=== PATIENT | female | born 1940 | race Caucasian/White ===

== ENCOUNTER 2023-11-03 12:08 | Outpatient (OUT) | payer MEDICARE, SELFPAY ==
[2023-11-03 12:24] LABS: Basophils Absolute Auto 0.1 10^3/uL (0.0-0.1); Basophils Percent Auto 1.1 % (0.2-2.0); Eosinophils Absolute Auto 0.3 10^3/uL (0.0-0.7); Eosinophils Percent Auto 3.9 % (0.9-7.0); Hematocrit 39.2 % (36.0-48.0); Hemoglobin 12.4 g/dL (12.0-16.0); Immature Granulocytes Abs Auto 0.02 10^3/uL (0.00-0.03); Immature Granulocytes Pct Auto 0.3 % (0.0-0.5); Lymphocytes Absolute Auto 2.1 10^3/uL (1.2-3.8); Lymphocytes Percent Auto 27.9 % (20.5-60.0); Mean Corpuscular HGB Conc 31.6 g/dL (29.9-35.2); Mean Corpuscular Hemoglobin 28.1 pg (26.7-34.0); Mean Corpuscular Volume 88.7 fL (81.0-99.0); Mean Platelet Volume 9.6 fL (9.5-13.5); Monocytes Absolute Auto 0.6 10^3/uL (0.3-0.8); Monocytes Percent Auto 7.3 % (1.7-12.0); Neutrophils Absolute Auto 4.5 10^3/uL (1.4-6.5); Neutrophils Percent Auto 59.5 % (43.0-75.0); Platelet Count 255 10^3/uL (150-450); Red Blood Count 4.42 10^6/uL (4.20-5.40); Red Cell Distribution Width 12.5 % (11.0-15.0); White Blood Count 7.5 10^3/uL (4.0-11.0)
[2023-11-03 12:56] LABS: Estimated Average Glucose 123 mg/dL; Glycohemoglobin A1C 5.9 % (4.5-6.2)
[2023-11-03 13:07] LABS: Alanine Aminotransferase 24 U/L (14-59); Albumin Globulin Ratio 0.9; Albumin Level 3.6 g/dL (3.4-5.0); Alkaline Phosphatase 83 U/L (46-116); Aspartate Amino Transferase 24 U/L (15-37); BUN Creatinine Ratio 10.3; Bilirubin Total 0.5 mg/dL (0.2-1.0); Calcium 8.8 mg/dL (8.5-10.1); Carbon Dioxide 27.7 mmol/L (21.0-32.0); Chloride 101 mmol/L (98-107); Chol HDL Ratio 2.8; Cholesterol 193 mg/dL (<=200); Estimated GFR (African America 54 (>=60); Estimated GFR (Non-African Ame 44 (>=60); Free T3 1.73 pg/mL (2.18-3.98); Globulin 4.1 g/dL; Glucose 118 mg/dL (74-106); HDL Cholesterol 69 mg/dL (40-60); Potassium 3.7 mmol/L (3.5-5.1); Sodium 138 mmol/L (136-145); Thyroid Stimulating Hormone 3.545 uIU/mL (0.358-3.740); Total Protein 7.7 g/dL (6.4-8.2); Triglycerides 138 mg/dL (<=150); VLDL CHOLESTEROL 27.6 mg/dL
[2023-11-05 12:07] LABS: Insulin 38.2 uIU/mL (2.6-24.9)
== END 2023-11-03 12:09 | disposition home or self-care (01) ==
LOC: LAB 12:08
PROVIDERS: PCP Nurse Practitioner Family; Visit Provider Nurse Practitioner Family
DX: I10 Essential (primary) hypertension (principal); E78.5 Hyperlipidemia, unspecified; R73.09 Other abnormal glucose; D64.9 Anemia, unspecified; R53.83 Other fatigue; E55.9 Vitamin D deficiency, unspecified
CPT/HCPCS: 36415; 80053; 80061; 82306; 83036; 83525; 83540; 84436; 84443; 84481; 85025

== ENCOUNTER 2024-11-21 14:09 | Outpatient (OUT) | payer MEDICARE, SELFPAY ==
--- OUTSIDE RECORDS SUMMARY | 2024-11-21 14:18 | XMS_ITS | CCD ---
Author Organization [facility] Care Team Providers Care Soap Drier Operator Name Role Phone TAL ., DR BRAD Mancia Admitting Unavaila ble GRPERRI ., DR BRAD Mancia Attending Unavaila jonas [facility] Unavailable GRILLIS ., DR BRAD Mancia Attending Unavaila ble GRILLIS ., DR BRAD Mancia Consulting Unavaila ble GRILLIVu ., DR BRAD Mancia Admitting Unavaila ble ROSS, [facility] Primary Care Unavailable KENNEDY, DR JENNIE Aguila Consulting Unavailable MUNIRA ., FERNANDO DUDLEY Consulting Indira KRUGER ., DR BURKS Consulting Unavailable KATHERINE NORIEGA Consulting Unavaila ble GRILLIS ., DR BRAD Mancia Admitting Unavaila ble GRPERRI ., DR BRAD Mancia Attending Unavaila ble TAL ., DR BRAD Mancia Consulting Unavaila jonas [facility] Primary Care Unavailable ASTRIDJEAN-CLAUDE Consulting Unavailable GOLDIE KHAN Consulting Unavailable GRILLIS ., DR BRAD Mancia Attending Unavaila ble GRILLIS ., DR BRAD Mancia Admitting Unavaila ble ROSS, [facility] BRIDGETT MICHELLE Admitting Unavailable BRIDGETT MICHELLE Attending Unavailable PARDEEPS ., DR BRAD Mancia Attending Unavaila ble GRILLIS ., DR BRAD Mancia Consulting Unavaila ble GRILLIS ., DR BRAD Mancia Admitting Unavaila ble ROSS, [facility] Unavailable BANTAM, DR ZI Nixon Consulting Unavailable BRIDGETT MICHELLE Consulting Unavailable MIGUEL ANGEL [facility] Primary Care Unavailable BRIDGETT MICHELLE Admitting Unavailable BRIDGETT MICHELLE Attending Unavailable Miguel Angel OLMSTEAD-SUPERVISOR SHOP, Bridgett Womack Primary Care Provider Norman OLMSTEAD-María RITCHIE Unavailable Gene Michelle MD Primary Care Provider MARÍA SALMON Attending Unavailab MARÍA Tay Attending Unavailab MARÍA Tay Attending Unavailab MARÍA Tay Attending Unavailab MARÍA Tay Attending Unavailab le Allergies Allergy Classification Reported Allergen(s) Allergy Type Date of Onset Reaction(s) Facility (2 sources) Etodolac Drug Allergy [facility] (1 source) Budesonide Drug Allergy 2 Vomiting [facility] (1 source) Etodolac Drug Allergy 2 [facility] (4 sources) Etodolac Propensity to adverse reactions 3 [facility] (4 sources) Lactobacillus acidophilus Drug Allergy 3 [facility] Healthcare Medications Current Medications Medication Drug Class(es) Dates Sig (Normalized) Sig (Original) ALPRAZolam 0.25 mg oral tablet (7 sources) Benzodiazepine Start: 10-14-2024 take 1 tablet by mouth once daily as needed for anxiety ALPRAZolam (Xanax) 0.25 MG tablet Indications: Anxiety TAKE 1 TABLET BY MOUTH ONCE DAILY NEEDED FOR ANXIETY 30 tablet 10/14/2024 Active Start: 05-02-2024 End: 09-19-2024 take 1 tablet by mouth every twenty-four hours as needed for anxiety and anxiety and anxiety ALPRAZolam (Xanax) 0.25 MG tablet Indications: Anxiety Take 1 tablet (0.25 mg) by mouth Daily as needed for anxiety (1 tablet daily as needed) 30 tablet 08/20/2024 09/19/2024 Active Start: 12-14-2021 ALPRAZolam (XA NAX) 0.25 mg tablet TAKE 1 TABLET ORALLY 6-8 HRS NEEDED 30 DAYS 0 12/14/2021 Active amitriptyline hydrochloride 50 mg oral tablet (7 sources) Tricyclic Antidepressant Start: 08-20-2024 take 1 tablet by mouth at bedtime amitriptyline (Elavil) 50 MG tablet Indications: Bipolar 2 disorder (CMS/HCC) Take 1 tablet (50 mg) by mouth at bedtime 90 tablet 08/20/2024 Active Start: 08-20-2024 take 1 tablet by william th at bedtime amitriptyline (Elavil) 50 MG tablet Indications: Bipolar 2 disorder (CMS/HCC) Take 1 tablet (50 mg) by mouth at bedtime 90 tablet 08/20/2024 Active Start: 07-19-2024 End: 08-20-2024 take 1 tablet by mouth at bedtime amitriptyline (Elavil) 50 MG tablet Indications: Bipolar 2 disorder (CMS/HCC) TAKE 1 TABLET BY MOUTH AT BEDTIME 90 tablet 07/19/2024 08/20/2024 Discontinued (Reorder) Start: 12-24-2021 take 1 tablet by william th once daily amitriptyline (ELAVIL) 50 mg tablet TAKE 1 TABLET BY MOUTH EVERY DAY FOR 90 DAYS 0 12/24/2021 Active lamoTRIgine 150 mg oral tablet (7 sources) Mood Stabilizer, Anti-epileptic Agent Start: 05-02-2024 End: 11-18-2024 take 1 tablet by mouth once daily lamoTRIgine (LaMICtal) 150 MG tablet Indications: Bipolar 2 disorder (CMS/HCC) Take 1 tablet (150 mg) by mouth Daily 90 tablet 08/20/2024 11/18/2024 Active Start: 12-24-2021 take 1 tablet by william th once daily lamoTRIgine (LaMICtal) 200 mg tablet TAKE 1 TABLET BY MOUTH EVERY DAY FOR 90 DAYS 0 12/24/2021 Active latanoprost 0.05 mg/ml ophthalmic solution (5 sources) Prostaglandin Analog Start: 06-19-2022 take 1 drop(s) into the eye(s) at bedtime latanoprost (Xalatan) 0.005 % ophthalmic solution Administer 1 drop into both eyes at bedtime. 06/19/2022 Active Start: 12-02-2021 take 1 drop(s) into the eye(s) once daily at bedtime latanoprost (XALATAN) 0.005 % ophthalmic solution PLACE 1 DROP INTO AFFECTED EYE ONCE A DAY AT BEDTIME 0 12/02/2021 Active levothyroxine sodium 0.05 mg oral tablet (5 sources) l-Thyroxine Start: 12-24-2021 take 1 tablet by mouth before mealtime levothyroxine (Synthroid, Levoxyl) 50 MCG tablet Take 50 mcg by mouth in the morning. Take before meals. 03/14/2023 Active metoprolol tartrate 25 mg oral tablet (5 sources) beta-Adrenergic Hu Start: 12-14-2021 take 1 tablet by mouth in the morning metoprolol tartrate (Lopressor) 25 MG tablet Take 25 mg by mouth in the morning and 25 mg before bedtime. 02/10/2023 Active naproxen 500 mg oral tablet (4 sources) Nonsteroidal Anti-inflammatory Drug Start: 03-15-2023 take 1 tablet by mouth in the morning naproxen (Naprosyn) 500 MG tablet Take 500 mg by mouth in the morning. 03/15/2023 Active omeprazole 40 mg delayed release oral capsule (6 sources) Proton Pump Inhibitor Start: 12-18-2023 take 1 capsule by mouth before mealtime, then take 1 capsule by mouth before mealtime omeprazole (PriLOSEC) 40 mg capsule Indications: Acquired diverticulum of esophagus , Esophageal stricture TAKE 1 CAPSULE BY MOUTH IN THE MORNING BEFORE MEAL(S) AND 1 IN THE EVENING BEFORE MEAL(S) 180 capsule 3 12/18/2023 Active Start: 08-23-2023 End: 12-18-2023 take 1 capsule by mouth in the morning, then take 1 capsule by mouth before mealtime omeprazole (PriLOSEC) 40 mg capsule Indications: Acquired diverticulum of esophagus , Esophageal stricture TAKE 1 CAPSULE BY MOUTH IN THE MORNING AND 1 IN THE EVENING BEFORE MEAL(S) 180 capsule 0 08/23/2023 12/18/2023 Discontinued simvastatin 20 mg oral tablet (5 sources) HMG-CoA Reductase Inhibitor Start: 12-24-2021 take 1 tablet by mouth at bedtime simvastatin (Zocor) 20 MG tablet Take 20 mg by mouth at bedtime. 03/14/2023 Active Problems Active Problems Problem Classification Problem Date Documented Date Episodic/Chronic Anxiety disorders (8 sources) Anxiety disorder, unspecified; Translations: [Anxiety] Onset: 02-17-2022 03-04-2023 Chronic Chronic kidney disease (2 sources) Chronic kidney disease, unspecified; Translations: [Chronic kidney disease] Onset: 02-21-2022 02-21-2022 Chronic Digestive congenital anomalies (1 source) Congenital diverticulum of esophagus; Translations: [CONGENITAL DIVERTICULUM ESOPHAGUS] Onset: 03-11-2022 Chronic Disorders of lipid metabolism (3 sources) Hyperlipidemia, unspecified; Translations: [Pure hypercholesterolemia, unspecified] Onset: 02-21-2022 02-21-2022 Chronic Esophageal disorders (7 sources) Gastro-esophageal reflux disease without esophagitis; Translations: [Esophageal obstruction] Onset: 03-09-2022 Chronic Esophageal disorders (5 sources) Diverticulum of esophagus, acquired; Translations: [Acquired diverticulum of esophagus] Onset: 02-25-2022 Episodic Essential hypertension (6 sources) Essential (primary) hypertension; Translations: [Hypertensive disorder] Onset: 02-17-2022 Chronic Hypertension with complications and secondary hypertension (1 source) Hypertensive chronic kidney disease with stage 1 through stage 4 chronic kidney disease, or unspecified chronic kidney disease; Translations: [HTN CKD W/STAGE 1-4 CKD/UNS CKD] Onset: 03-11-2022 Chronic Mood disorders (10 sources) Bipolar II disorder; Translations: [Bipolar II disorder] Onset: 03-04-2023 03-04-2023 Chronic Osteoarthritis (1 source) Unspecified osteoarthritis, unspecified site; Translations: [UNSPECIFIED OSTEOARTHRITIS UNS SITE] Onset: 02-17-2022 Chronic Unclassified (1 source) GASTR-ESOPH RFLX DS ESPHGTS W/O BLD; Translations: [GASTR-ESOPH RFLX DS ESPHGTS W/O BLD] Onset: 03-11-2022 Unclassified (1 source) ESOPHAGITIS UNSPEC WITHOUT BLEEDING; Translations: [ESOPHAGITIS UNSPEC WITHOUT BLEEDING] Onset: 02-17-2022 Unclassified (1 source) CONTACT W/AND (SUSP) EXPOS COVID-19; Translations: [CONTACT W/AND (SUSP) EXPOS COVID-19] Onset: 02-17-2022 Past or Other Problems Problem Classification Problem Date Documented Da te Episodic/Chronic Deficiency and other anemia (1 source) Anemia, unspecified; Translations: [ANEMIA UNSPECIFIED] Onset: 09-08-2022 Episodic Diabetes mellitus without complication (1 source) Other abnormal glucose; Translations: [OTHER ABNORMAL GLUCOSE] Onset: 09-08-2022 Episodic Intestinal obstruction without hernia (1 source) Other intestinal obstruction unspecified as to partial versus complete obstruction; Translations: [OTH INTEST OBS UNS PART VS CMPL OBS] Onset: 03-02-2022 Episodic Other aftercare (1 source) Other senior living (current) drug therapy; Translations: [OTH GROUP HOME CURRENT DRUG THERAPY] Onset: 02-17-2022 Episodic Other and unspecified benign neoplasm (1 source) Personal history of colonic polyps; Translations: [PERSONAL HISTORY OF COLONIC POLYPS] Onset: 02-17-2022 Episodic Other disorders of stomach and duodenum (1 source) Adult hypertrophic pyloric stenosis; Translations: [ADULT HYPERTROPHIC PYLORIC STENOSIS] Onset: 03-02-2022 Episodic Other gastrointestinal disorders (1 source) Other dysphagia; Translations: [OTHER DYSPHAGIA] Onset: 03-11-2022 Episodic Other gastrointestinal disorders (3 sources) Dysphagia, unspecified; Translations: [DYSPHAGIA UNSPECIFIED] Onset: 02-09-2022 Episodic Other injuries and conditions due to external causes (1 source) Food in esophagus causing other injury, initial encounter; Translations: [FOOD ESOPH CAUS OTH INJURY INIT ENC] Onset: 02-17-2022 Episodic Other screening for suspected conditions (not mental disorders or infectious disease) (1 source) Abnormal findings on diagnostic imaging of other parts of digestive tract; Translations: [ABN FND DX IMAG OTH PRT DGSTV TRACT] Onset: 03-11-2022 Episodic Residual codes; unclassified (4 sources) Insomnia; Translations: [Insomnia, unspecified] Onset: 03-13-2024 03-13-2024 Episodic Screening and history of mental health and substance abuse codes (1 source) Personal history of nicotine dependence; Translations: [PERSONAL HISTORY OF NICOTINE DEPEND] Onset: 02-17-2022 Episodic Results Test Name Value Interpretation Reference Range Facil ity INSULINon 07-28-2022 Insulin 9.9 uIU/mL Normal 2.6-24.9 [facility] Comment on above: Performed By: #### C BC #### [facility] [address] [address] [address] Deandre Ren CBC AUTO DIFFon 07-27-2022 BASO # 0.1 103/ul Normal 0.0-0.1 [facility] Comment on above: Performed By: #### C BC #### [facility] [address] [address] [address] Deandre Ren Basophils/100 WBC (Bld) 1.0 % Normal 0.2-2.0 [facility] Comment on above: Performed By: #### C BC #### [facility] [address] [place] [address] Dr. Deandre Ren EO # 0.2 103/ul Normal 0.0-0.7 [facility] Comment on above: Performed By: #### C BC #### [facility] [address] [place] [address] Dr. Deandre Ren Eosinophils/100 WBC (Bld) 3.2 % Normal 0.9-7.0 [facility] Comment on above: Performed By: #### C BC #### [facility] [address] [place] [address] Dr. Deandre Ren Erythrocyte distribution width (RBC) [Ratio] 13.0 % Normal 11.0-15.0 [facility] Comment on above: Performed By: #### C BC #### [facility] [address] [place] [address] Dr. Deandre Ren Hematocrit (Bld) [Volume fraction] 40.4 % Normal 36.0-48.0 [facility] Comment on above: Performed By: #### C BC #### [facility] [address] [place] [address] Dr. Deandre Ren Hemoglobin (Bld) [Mass/Vol] 13.0 g/dL Normal 12.0-16.0 [facility] Comment on above: Performed By: #### C BC #### [facility] [address] [place] [address] Dr. Deandre Ren IG # 0.03 10e3/ul Normal 0.00-0.03 [facility] Comment on above: Performed By: #### C BC #### [facility] [address] [place] [address] Dr. Denadre Ren IG % 0.4 % Normal 0.0-0.5 [facility] Comment on above: Performed By: #### C BC #### [facility] [address] [place] [address] Dr. Deandre Ren LYMPH # 1.9 103/ul Normal 1.2-3.8 [facility] Comment on above: Performed By: #### C BC #### [facility] [address] [place] [address] Dr. Deandre Ren Lymphocytes/100 WBC (Bld) 27.1 % Normal 20.5-60.0 [facility] Comment on above: Performed By: #### C BC #### [facility] [address] [place] [address] Dr. Deandre Ren MANUAL DIFF REQ NO Normal [facility] Comment on above: Performed By: #### C BC #### [facility] [address] [place] [address] Dr. Deandre Ren MCH (RBC) [Entitic mass] 28.5 pg Normal 26.7-34.0 [facility] Comment on above: Performed By: #### C BC #### [facility] [address] [place] [address] Dr. Deandre Ren MCHC (RBC) [Mass/Vol] 32.2 g/dL Normal 29.9-35.2 [facility] Comment on above: Performed By: #### C BC #### [facility] [address] [place] [address] Dr. Deandre Ren MCV (RBC) [Entitic vol] 88.6 fL Normal 81.0-99.0 [facility] Comment on above: Performed By: #### C BC #### [facility] [address] [place] [address] Dr. Deandre Ren MONO # 0.6 103/ul Normal 0.3-0.8 [facility] Comment on above: Performed By: #### C BC #### [facility] [address] [place] [address] Dr. Deandre Ren Monocytes/100 WBC (Bld) 9.1 % Normal 1.7-12.0 [facility] Comment on above: Performed By: #### C BC #### [facility] [address] [place] [address] Dr. Deandre Ren NEUT # 4.1 103/ul Normal 1.4-6.5 [facility] Comment on above: Performed By: #### C BC #### [facility] [address] [place] [address] Dr. Deandre Ren Neutrophils/100 WBC (Bld) 59.2 % Normal 43.0-75.0 [facility] Comment on above: Performed By: #### C BC #### [facility] [address] [place] [address] Dr. Deandre Ren Platelet mean volume (Bld) [Entitic vol] 9.8 fL Normal 9.5-13.5 [facility] Comment on above: Performed By: #### C BC #### [facility] [address] [place] [address] Dr. Deandre Ren PLT 237 103/ul Normal 150-450 [facility] Comment on above: Performed By: #### C BC #### [facility] [address] [place] [address] Dr. Deandre Ren RBC 4.56 106/ul Normal 4.20-5.40 [facility] Comment on above: Performed By: #### C BC #### [facility] [address] [place] [address] Dr. Deandre Ren WBC 6.9 103/ul Normal 4.0-11.0 [facility] Comment on above: Performed By: #### C BC #### [facility] [address] [place] [address] Dr. Deandre Ren FREE THYROXINE INDEX T7on FTI 3.43 Normal 1.30-4.50 [facility] Comment on above: Performed By: #### C BC #### [facility] [address] [place] [address] Dr. Deandre Ren T3U 34.0 % Normal 30.0-39.0 [facility] Comment on above: Performed By: #### C BC #### [facility] [address] [place] [address] Dr. Deandre Ren T4 [Mass/Vol] 10.10 ug/dL Normal 4.80-13.90 [facility] Comment on above: Performed By: #### C BC #### [facility] [address] [place] [address] Dr. Deandre Ren GLYCOHEMOGLOBIN A1Con 2021 ADA RECOMMENDATION SEE BELOW Normal [facility] Comment on above: Result Comment: ADA RECOMMENDED LIMIT 4.0 - 6.0 ADA THERAPEUTIC TARGET < 7.0 ACTION SUGGESTED > 7.0 Performed By: #### A 1C #### [facility] [address] [place] [address] Dr. Deandre Ren Glucose [Mass/Vol] 114 mg/dL Normal [facility] Comment on above: Performed By: #### A 1C #### [facility] [address] [address] [address] Deandre Ren HbA1c (Bld) [Mass fraction] 5.6 % Normal 4.5-6.2 [facility] Comment on above: Performed By: #### A 1C #### [facility] [address] [place] [address] Dr. Deandre Ren IRONon 07-27-2022 Iron [Mass/Vol] 106.0 ug/dL Normal 50.0-170.0 [facility] Comment on above: Performed By: #### I BELKIS #### [facility] [address] [place] [address] Dr. Deandre Ren LIPID PROFILEon 07-27-2022 CHOL-HDL RATIO NORM SEE BELOW Normal [facility] Comment on above: Result Comment: 3.3 - 4.4 LOW RISK 4.4 - 7.1 AVERAGE RISK 7.1 - 11.0 MODERATE RISK >11.0 HIGH RISK Performed By: #### C BC #### [facility] [address] [place] [address] Dr. Deandre Ren Cholesterol [Mass/Vol] 218 mg/dL Critically high <=200 [facility] Comment on above: Performed By: #### C BC #### [facility] [address] [address] [address] Daendre Ren Cholesterol in HDL [Mass/Vol] 74 mg/dL Critically high 40-60 [facility] Comment on above: Performed By: #### C BC #### [facility] [address] [address] [address] Deandre Ren Cholesterol in LDL [Mass/Vol] 98.0 mg/dL Normal [facility] Comment on above: Performed By: #### C BC #### [facility] [address] [address] [address] Deandre Ren Cholesterol.total/Cho lesterol in HDL [Mass ratio] 2.9 {ratio} Normal [facility] Comment on above: Performed By: #### C BC #### [facility] [address] [address] [address] Deandre Ren HDL NORMAL > or = 60 mg/dl - LOW CARDIOVASCULAR RISK <40 mg/dl - HIGH CARDIOVASCULAR RISK Normal [facility] Comment on above: Performed By: #### C BC #### [facility] [address] [address] [address] Deandre Ren LDL CALC NORMAL SEE BELOW Normal [facility] Comment on above: Result Comment: <100 mg/dl OPTIMAL 100 - 129 mg/dl NEAR OR ABOVE OPTIMAL 130 - 159 mg/dl BORDERLINE HIGH 160 - 189 mg/dl HIGH >190 mg/dl VERY HIGH Performed By: #### C BC #### [facility] [address] [place] [address] Dr. Deandre Ren Triglyceride [Mass/Vol] 230 mg/dL Critically high <=150 [facility] Comment on above: Performed By: #### C BC #### [facility] [address] [place] [address] Dr. Deandre Ren VLDL CALC 46.0 mg/dL Normal [facility] Comment on above: Performed By: #### C BC #### [facility] [address] [address] [address] Deandre Ren PROF 14(COMP METB)on 022 Albumin [Mass/Vol] 3.6 g/dL Normal 3.4-5.0 [facility] Comment on above: Performed By: #### C BC #### [facility] [address] [place] [address] Dr. Deandre Ren Albumin/Globulin [Mass ratio] 0.8 {ratio} Normal [facility] Comment on above: Performed By: #### C BC #### [facility] [address] [place] [address] Dr. Deandre Ren ALP [Catalytic activity/Vol] 116 U/L Normal 46-116 [facility] Comment on above: Performed By: #### C BC #### [facility] [address] [place] [address] Dr. Deandre Ren ALT [Catalytic activity/Vol] 30 U/L Normal 14-59 [facility] Comment on above: Performed By: #### C BC #### [facility] [address] [place] [address] Dr. Deandre Ren Anion gap [Moles/Vol] 9.6 mmol/L Normal [facility] Comment on above: Performed By: #### C BC #### [facility] [address] [place] [address] Dr. Deandre Ren AST [Catalytic activity/Vol] 30 U/L Normal 15-37 [facility] Comment on above: Performed By: #### C BC #### [facility] [address] [place] [address] Dr. Deandre Ren Bilirubin [Mass/Vol] 0.4 mg/dL Normal 0.2-1.0 [facility] Comment on above: Performed By: #### C BC #### [facility] [address] [place] [address] Dr. Deandre Ren Calcium [Mass/Vol] 9.3 mg/dL Normal 8.5-10.1 [facility] Comment on above: Performed By: #### C BC #### [facility] [address] [place] [address] Dr. Deandre Ren Chloride [Moles/Vol] 102 mmol/L Normal 98-107 [facility] Comment on above: Performed By: #### C BC #### [facility] [address] [address] [address] Deandre Ren CO2 [Moles/Vol] 31.0 mmol/L Normal 21.0-32.0 [facility] Comment on above: Performed By: #### C BC #### [facility] [address] [place] [address] Dr. Deandre Ren Creatinine [Mass/Vol] 1.09 mg/dL Critically high 0.55-1.02 [facility] Comment on above: Performed By: #### C BC #### [facility] [address] [address] [address] Deandre Ren EGFR-AF BENINESE 58 mL/min/1.73m2 Critically low >=60 [facility] Comment on above: Performed By: #### C BC #### [facility] [address] [address] [address] Deandre Ren EGFR-NON AF BENINESE 48 mL/min/1.73m2 Critically low >=60 [facility] Comment on above: Performed By: #### C BC #### [facility] [address] [address] [address] Deandre Ren Globulin (S) [Mass/Vol] 4.3 g/dL Normal [facility] Comment on above: Performed By: #### C BC #### [facility] [address] [address] [address] Deandre Ren Glucose [Mass/Vol] 95 mg/dL Normal 74-106 [facility] Comment on above: Performed By: #### C BC #### [facility] [address] [address] [address] Deandre Ren Potassium [Moles/Vol] 3.6 mmol/L Normal 3.5-5.1 [facility] Comment on above: Performed By: #### C BC #### [facility] [address] [address] [address] Deandre Ren Protein [Mass/Vol] 7.9 g/dL Normal 6.4-8.2 [facility] Comment on above: Performed By: #### C BC #### [facility] [address] [address] [address] Deandre Rne Sodium [Moles/Vol] 139 mmol/L Normal 136-145 [facility] Comment on above: Performed By: #### C BC #### [facility] [address] [address] [address] Deandre Ren Urea nitrogen [Mass/Vol] 12.0 mg/dL Normal 7.0-18.0 [facility] Comment on above: Performed By: #### C BC #### [facility] [address] [place] [address] Dr. Deandre Ren Urea nitrogen/Creatinine [Mass ratio] 11.0 mg/mg Normal [facility] Comment on above: Performed By: #### C BC #### [facility] [address] [place] [address] Dr. Deandre Ren TSHon 07-27-2022 TSH 2.450 uIU/mL Normal 0.358-3.740 [facility] Comment on above: Performed By: #### C BC #### [facility] [address] [place] [address] Dr. Deandre Rne CBC AUTO DIFFon 02-09-2022 BASO # 0.1 103/ul Normal 0.0-0.1 [facility] Comment on above: Performed By: #### C BC #### [facility] [address] [place] [address] Dr. Deandre Ren Basophils/100 WBC (Bld) 0.8 % Normal 0.2-2.0 [facility] Comment on above: Performed By: #### C BC #### [facility] [address] [place] [address] Dr. Deandre Ren EO # 0.2 103/ul Normal 0.0-0.7 [facility] Comment on above: Performed By: #### C BC #### [facility] [address] [place] [address] Dr. Deandre Ren Eosinophils/100 WBC (Bld) 2.1 % Normal 0.9-7.0 [facility] Comment on above: Performed By: #### C BC #### [facility] [address] [place] [address] Dr. Deandre Ren Erythrocyte distribution width (RBC) [Ratio] 12.8 % Normal 11.0-15.0 [facility] Comment on above: Performed By: #### C BC #### [facility] [address] [place] [address] Dr. Deandre Ren Hematocrit (Bld) [Volume fraction] 42.1 % Normal 36.0-48.0 [facility] Comment on above: Performed By: #### C BC #### [facility] [address] [place] [address] Dr. Deandre Ren Hemoglobin (Bld) [Mass/Vol] 13.6 g/dL Normal 12.0-16.0 [facility] Comment on above: Performed By: #### C BC #### [facility] [address] [place] [address] Dr. Deandre Ren IG # 0.02 10e3/ul Normal 0.00-0.03 [facility] Comment on above: Performed By: #### C BC #### [facility] [address] [place] [address] Dr. Deandre Ren IG % 0.2 % Normal 0.0-0.5 [facility] Comment on above: Performed By: #### C BC #### [facility] [address] [place] [address] Dr. Deandre Ren LYMPH # 1.7 103/ul Normal 1.2-3.8 [facility] Comment on above: Performed By: #### C BC #### [facility] [address] [place] [address] Dr. Deandre Ren Lymphocytes/100 WBC (Bld) 20.5 % Normal 20.5-60.0 [facility] Comment on above: Performed By: #### C BC #### [facility] [address] [place] [address] Dr. Deandre Ren MANUAL DIFF REQ NO Normal [facility] Comment on above: Performed By: #### C BC #### [facility] [address] [place] [address] Dr. Deandre Ren MCH (RBC) [Entitic mass] 28.5 pg Normal 26.7-34.0 [facility] Comment on above: Performed By: #### C BC #### [facility] [address] [place] [address] Dr. Deandre Ren MCHC (RBC) [Mass/Vol] 32.3 g/dL Normal 29.9-35.2 [facility] Comment on above: Performed By: #### C BC #### [facility] [address] [address] [address] Deandre Ren MCV (RBC) [Entitic vol] 88.1 fL Normal 81.0-99.0 [facility] Comment on above: Performed By: #### C BC #### [facility] [address] [address] [address] Deandre Ren MONO # 0.6 103/ul Normal 0.3-0.8 [facility] Comment on above: Performed By: #### C BC #### [facility] [address] [address] [address] Deandre Ren Monocytes/100 WBC (Bld) 6.6 % Normal 1.7-12.0 [facility] Comment on above: Performed By: #### C BC #### [facility] [address] [place] [address] Dr. Deandre Ren NEUT # 5.9 103/ul Normal 1.4-6.5 [facility] Comment on above: Performed By: #### C BC #### [facility] [address] [place] [address] Dr. Deandre Ren Neutrophils/100 WBC (Bld) 69.8 % Normal 43.0-75.0 [facility] Comment on above: Performed By: #### C BC #### [facility] [address] [place] [address] Dr. Deandre Ren Platelet mean volume (Bld) [Entitic vol] 10.7 fL Normal 9.5-13.5 [facility] Comment on above: Performed By: #### C BC #### [facility] [address] [place] [address] Dr. Deandre Ren PLT 259 103/ul Normal 150-450 [facility] Comment on above: Performed By: #### C BC #### [facility] [address] [address] [address] Deandre Ren RBC 4.78 106/ul Normal 4.20-5.40 [facility] Comment on above: Performed By: #### C BC #### [facility] [address] [place], [place] [address] Dr. Deandre Ren WBC 8.5 103/ul Normal 4.0-11.0 [facility] Comment on above: Performed By: #### C #### [facility] [address] [place], [place] [address] NECK ST W CONon CT NECK ST W CON EXAMINATION: CT NECK ST W CON HISTORY: Dysphagia , excessive saliva COMPARISON: No relevant comparison available. TECHNIQUE: Axial, Coronal, and Sagittal CT images created with IV contrast. Dose reduction techniques were achieved by using automated exposure control and/or adjustment of mA and/or kV according to patient size and/or use of iterative reconstruction technique. FINDINGS: NASOPHARYNX: No asymmetry of the fossae of Rosenmuller and torus tubarius. ORAL CAVITY: No visible mass. OROPHARYNX: No asymmetry of the facial and lingual tonsils. HYPOPHARYNX: No mass or other visible lesion. LARYNX: No mass or asymmetry of the vocal cords. SINUSES: No significant fluid or mucosal thickening. NECK GLADS: No visible abnormality of the parotid, submandibular, and thyroid glands. LYMPH NODES: No pathological-appeari ng or enlarged lymph nodes. VASCULATURE: No suspicious abnormality. BONES: Moderate marked degenerative disc disease C3-C4, C4-C5, C5-C6. OTHER: Distended proximal esophagus partially filled with fluid and debris. IMPRESSION: 1. Distended partially filled proximal esophagus, which extends below level of imaging, but may signify distal obstruction or lack of peristalsis. Consider CT chest with IV contrast for further evaluation. 2. Unremarkable oral cavity/pharynx/laryn x. No appreciable abnormality of the salivary glands, mass, or lymphadenopathy. Electronically authenticated by: JENNIE BENAVIDES Date: 2022-02-09 15:50 Normal [facility] Covid-19 PCR ([facility])on 01-22 SARS-CoV-2 (COVID-19) RNA ANAIS+probe Ql (Unsp spec) Not detected Normal NOT DETECTED [facility] Comment on above: Result Comment: When diagnostic testing is negative, the possibility of a false negative should be considered in the context of a patient's recent exposures and the presence of clinical signs and symptoms consistent with SARS-CoV-2. This test is not yet approved or cleared by the [place] FDA. When there are no FDA-approved or cleared tests available, and other criteria are met, FDA can make tests available under an emergency access mechanism called an Emergency Use Authorization (EUA). The EUA for this test is supported by the Nursing Home Manager of Health and Human Service's declaration that circumstances exist to justify the emergency use of in vitro diagnostics for the detection and/or diagnosis of the virus that causes COVID-19. This EUA will remain in effect for the duration of the COVID-19 declaration justifying emergency of IVDs, unless it is terminated or revoked by the FDA (after which the test may no longer be used). Performed By: #### C VDTB #### [facility] [address] [place] [address] Dr. Deandre Ren PROF CHEM 8 (BAS METB)on Anion gap [Moles/Vol] 16.3 mmol/L Normal [facility] Comment on above: Performed By: #### C BC #### [facility] [address] [place] [address] Dr. Deandre Ren Calcium [Mass/Vol] 9.4 mg/dL Normal 8.5-10.1 [facility] Comment on above: Performed By: #### C BC #### [facility] [address] [place] [address] Dr. Deandre Ren Chloride [Moles/Vol] 99 mmol/L Normal 98-107 [facility] Comment on above: Performed By: #### C BC #### [facility] [address] [place] [address] Dr. Deandre Ren CO2 [Moles/Vol] 23.7 mmol/L Normal 22.0-30.0 [facility] Comment on above: Performed By: #### C BC #### [facility] [address] [place] [address] Dr. Deandre Ren Creatinine [Mass/Vol] 1.10 mg/dL Critically high 0.52-1.04 [facility] Comment on above: Performed By: #### C BC #### [facility] [address] [address] [address] Deandre Ren EGFR-AF BENINESE 58 mL/min/1.73m2 Critically low >=60 [facility] Comment on above: Performed By: #### C BC #### [facility] [address] [place] [address] Dr. Deandre Rne EGFR-NON AF BENINESE 48 mL/min/1.73m2 Critically low >=60 [facility] Comment on above: Performed By: #### C BC #### [facility] [address] [address] [address] Deandre Ren Glucose [Mass/Vol] 87 mg/dL Normal 74-106 [facility] Comment on above: Performed By: #### C BC #### [facility] [address] [place] [address] Dr. Deandre Ren Potassium [Moles/Vol] 3.0 mmol/L Critically low 3.4-5.0 [facility] Comment on above: Performed By: #### C BC #### [facility] [address] [place] [address] Dr. Deandre Ren Sodium [Moles/Vol] 136 mmol/L Critically low 137-145 [facility] Comment on above: Performed By: #### C BC #### [facility] [address] [place] [address] Dr. Deandre Ren Urea nitrogen [Mass/Vol] 17.0 mg/dL Normal 7.0-18.0 [facility] Comment on above: Performed By: #### C BC #### [facility] [address] [place] [address] Dr. Deandre Ren Urea nitrogen/Creatinine [Mass ratio] 15.5 mg/mg Normal [facility] Comment on above: Performed By: #### C BC #### [facility] [address] [place], [place] [id number] Dr. Deandre Ren PROTIMEon 02-09-2022 INR Coag (PPP) [Relative time] 1.03 {INR} Normal [facility] Comment on above: Performed By: #### P T, PTT #### [facility] [address] [address] [address] Deandre Ren INR GUIDELINES SEE BELOW Normal [facility] Comment on above: Result Comment: MARCUS RED INR: 2.0 - 3.0 CONDITIONS NOT LISTED BELOW 2.5 - 3.5 FOR PROSTHETIC HEART VALVE REPLACEMENT 2.5 - 3.5 RECURRENT THROMBOSIS Performed By: #### P T, PTT #### [facility] [address] [address] [address] Deandre Ren PT Coag (PPP) [Time] 11.1 s Normal 9.0-11.6 [facility] Comment on above: Performed By: #### P T, PTT #### [facility] [address] [address] [address] Deandre Ren PTTon 02-09-2022 aPTT Coag (Bld) [Time] 26.4 s Normal 22.3-36.2 [facility] Comment on above: Performed By: #### P T, PTT #### [facility] [address] [address] [address] Deandre Ren Vital Signs Date Time Vital Sign Value Performing Clinician Faci lity 08-20-2024 10:33-0400 Body mass index (BMI) [Ratio] 23.19 kg/m2 María Salmon SCRIPT READER-POWER SYSTEM OPERATOR Work Phone: [facility] 08-20-2024 10:33-0400 Body weight 60.33 kg María Malone-Nossek SCRIPT READER-POWER SYSTEM OPERATOR Work Phone: [facility] 08-20-2024 10:33-0400 Diastolic blood pressure 80 mm[Hg] María Nietoor-Nossek SCRIPT READER-POWER SYSTEM OPERATOR Work Phone: [facility] 08-20-2024 10:33-0400 Heart rate 99 /min María Malone-Nossek SCRIPT READER-POWER SYSTEM OPERATOR Work Phone: [facility] 08-20-2024 10:33-0400 Systolic blood pressure 118 mm[Hg] María Nietoor-Nossek SCRIPT READER-POWER SYSTEM OPERATOR Work Phone: [facility] Healthcare Encounters Encounter Date Encounter Type Care Provider Facility Start: 10-12-2024 End: 10-14-2024 Refill María Abby Kira-Nossek SCRIPT READER-POWER SYSTEM OPERATOR Work Phone: [facility] Comment on above: Anxiety Start: 08-20-2024 End: 08-20-2024 Bamboo flowsheet María Abby Kira-Nossek SCRIPT READER-POWER SYSTEM OPERATOR Work Phone: [facility] Start: 08-20-2024 End: 08-20-2024 Bamboo flowsheet María M Kira-Nossek SCRIPT READER-POWER SYSTEM OPERATOR Work Phone: [facility] Start: 08-20-2024 End: 08-20-2024 ambulatory MARÍA M KIRA-NOSSEK Not Available Start: 08-20-2024 End: 08-20-2024 Office outpatient visit 25 minutes María M Kira-Nossek SCRIPT READER-POWER SYSTEM OPERATOR Work Phone: [facility] Comment on above: Anxiety; Bipolar 2 disorder ([facility]) Start: 05-02-2024 End: 05-02-2024 ambulatory MARÍA M KIRA-NOSSEK Not Available Start: 03-13-2024 End: 03-13-2024 ambulatory MARÍA M KIRA-NOSSEK Not Available Start: 12-15-2023 Refill Juan erickson MD Work Phone: [facility] Comment on above: Acquired diverticulu m of esophagus; Esophageal stricture Start: 12-14-2023 End: 12-14-2023 ambulatory MARÍA M KIRA-NOSSEK Not Available Start: 09-13-2023 End: 09-13-2023 ambulatory MARÍA M KIRA-NOSSEK Not Available Start: 07-27-2022 End: 01-25-2023 ambulatory BRIDGETT MICHELLE Facility:[facility] Start: 04-07-2022 ambulatory JEAN-CLAUDE Patel y:[facility] Start: 03-09-2022 End: 03-09-[address] BRAD PARADA . Facility:[facility] Start: 03-05-[address] BRAD PARADA . Facility:[facility] Start: 03-03-[address] BRAD PARADA . Facility:[facility] Start: 02-25-2022 End: 02-26-[address] BRAD PARADA . Facility:[facility] Start: 02-09-2022 End: 02-09-[address] BRAD PARADA . Facility: Plan of Treatment Date Care Activity Detail Author Start: 11-20-2024 End: 11-20-2024 Patient encounter procedure 11/20/2024 11:30 AM EST Office Visit [facility] [address] [facility] [address] [place] [address] María Salmon, SCRIPT READER-POWER SYSTEM OPERATOR [address] [facility] [address] [place] [address] [facility] Start: 06-23-2024 Influenza vaccination Influenza Vaccine (#1) [facility] Start: 11-01-2023 Adult BMI Screening Adult BMI Screening [facility] Start: 11-01-2023 Tobacco Screening Tobacco Screening [facility] Start: 06-23-2023 COVID-19 Vaccine ( season) COVID-19 Vaccine ( season) [facility] Start: 06-23-2023 Influenza vaccination Influenza Vaccine [facility] Start: 2005 Fall Risk Screening Fall Risk Screening [facility] Start: 1990 Administration of varicella zoster vaccine Zoster (Shingles) Vaccine (1 of 2) [facility] Start: 1959 DTaP,Tdap and Td Vaccines (1 - Tdap) DTaP,Tdap and Td Vaccines (1 - Tdap) [facility] Start: 1952 Depression Screening Depression Screening [facility] Start: 1940 Medicare Annual Wellness Visit Medicare Annual Wellness Visit [facility] Immunizations Immunization Date Immunization Notes Care Provider Fa cili 10-21-2023 influenza virus vaccine, unspecified formulation María Salmon SCRIPT READER-POWER SYSTEM OPERATOR Work Phone: [facility] 07-01-2022 influenza virus vaccine, unspecified formulation Juan Grijalva MD Work Phone: [facility] Payers Date Payer Category Payer Private Health Insurance [id number] 2005 Medicare [id number] 1959 Medicare [id number] 1959 Self-pay 1959 Unknown [id number] 1940 Unknown [id number] 2.16.84 [id number] 1940 Unknown [id number] 2.16.84 [id number] 1940 Unknown [id number] 2.16.84 [id number] 1940 Unknown [id number] 2.16.84 [id number] 1940 Unknown [id number] 2.16.84 [id number] 1940 Unknown [id number] 2.16.84 [id number] 1940 Unknown [id number] 2.16.84 [id number] 1940 Unknown [id number] 2.16.84 [id number] 1940 Unknown [id number] 2.16.84 [id number] 1940 Unknown [id number] 2.16.84 [id number] 1940 Unknown [id number] 2.16.84 [id number] 1940 Unknown [id number] Social History Date Type Detail Facility Start: 02-21-2022 End: 03-04-2023 Tobacco smoking status NHIS Never smoked tobacco [facility] Start: 02-21-2022 End: 03-04-2023 Tobacco use and exposure Smokeless tobacco non-user [facility] Start: 11-01-2022 Alcohol intake Current drinke r of alcohol (finding) [facility] Start: 11-01-2022 End: 08-20-2024 History of Social function [facility] Start: 11-01-2022 End: 08-20-2024 Tobacco use panel [facility] Childcare Unknown [facility] Start: 02-21-2022 Alcohol Comment socially [facility] Start: 1940 Sex Assigned At Not on file P [facility] Start: 03-30-2022 Gender identity Identifies as female gender (finding) [facility] Start: 05-02-2024 End: 08-20-2024 Alcoholic beverage intake Ex-drinker (finding) [facility] Start: 04-11-2023 Alcohol Comment occassional tea [facility] Start: 08-20-2024 Education 13 [facility] Start: 08-20-2024 Alcohol Comment Caffine: occassional tea [facility] Telephone encounter Note 10-14-2024 Telephone Encounter - Inez Dumont LPN - 10/14/2024 11:13 AM EST Note Date & Type Note Facility 10-14-2024 Telephone encount er Note Attempted to reach patient, no answer does have follow up. [facility] Note 10-14-2024 Telephone Encounter - Inez Dumont LPN - 10/14/2024 11:13 AM EST Note Date & Type Note Facility 10-14-2024 Miscellaneous Notes Formattin g of this note might be different from the original. Attempted to reach patient, no answer does have follow up. documented in this encounter [facility] History of Present illness Narrative 08-20-2024 María MaloneKavithaFelicia, SCRIPT READER-POWER SYSTEM OPERATOR - 08/20/2024 10:30 AM EDT Note Date & Type Note Facility 08-20-2024 History of Presen t illness Narrative Images from the original note were not included. Ilana Elaine is a 84 y.o. female presents for Medication Management. HPI: Patient is here for medication follow up. Patient has maintained mood. Mood is reported as not having depression. Uses xanax half tab three times a week when real anxious. Sleeping well 7-8 hours. Medication compliant. No reported side effects. Denies abuse of substances. Denies Medical problems since last visit. Psychosocial stressors include where do I go from here. Enjoys geneology. SUBJECTIVE: PAST MEDICAL HISTORY: Past Medical History: Diagnosis Date Anxiety Depression (CMS/HCC) Insomnia ALLERGIES: Allergies Allergen Reactions Etodolac Lactobacillus Sporogenes [Lactobacillus] SURGICAL HISTORY: No past surgical history on file. FAMILY HISTORY: Family History Problem Relation Name Age of Onset Anxiety disorder Mother Depression Mother Colon cancer Mother Glaucoma Mother Anxiety disorder Father Depression Father Kidney disease Father Heart attack Father Mental illness Sister Mental illness Brother SOCIAL HISTORY: Social History Tobacco Use Smoking status: Never Smokeless tobacco: Never Vaping Use Vaping status: Never Used Substance Use Topics Alcohol use: Not Currently Comment: occassional tea Drug use: Never Depression: Not at risk (05/02/2024) PHQ-2 PHQ-2 Score: 0 REVIEW OF SYMPTOMS - MENTAL STATUS EXAM Appearance Appearance: Casual dress, normal grooming and hygiene Attitude Attitude: Cooperative, conversant, engaged, and with good eye contact. Behavior Cooperative, conversant, engaged, and with good eye contact. Speech Normal, clear, regular rate, rhythm and volume Affect full affect appropriate with mood Mood Anxious Thought Process Organized and Clear Thought Content No Suicidal Ideation and No Homicidal ideation Perception No perceptual abnormalities noted Orientation Appropriate to age, Person, Place, and Time Memory/Concentration Short term intact and extermination inspector intact Insight/Judgement Good OBJECTIVE: Visit Vitals Smoking Status Never No results found for: TSH No results found for: GLU , CALCIUM , NA , K , CO2 , CL , BUN , CREATININE No results found for: WBC , HGB , HCT , MCV , PLT No results found for: CHOL No results found for: HDL No results found for: LDLCALC No results found for: TRIG ASSESSMENT AND PLAN: Assessment/Plan Bipolar 2 disorder (CMS/HCC) Anxiety Insomnia due to other mental disorder Psych Medication List ALPRAZolam Tablet, 0.25 MG, 1 tablet, Orally, once a day prn severe anxiety Amitriptyline HCl Tablet, 50 MG, 1 tablet, Orally, Once a day LaMICtal Tablet, 150mg daily Patient was seen Face to Face, Reviewed chart documents and documentation, Visit time : 30min documented in this encounter [facility] Clinical Note 02-25-2022 Note Date & Type Note Facility 02-25-2022 Note PROCEDURE: Esophagra m, XR GI UPPER AIR KUB DUAL CONTRAST, XR CINERADIOGRAPHY COMPARISON: None. HISTORY: Acquired diverticulum of esophagus , food stuck in mid throat TECHNIQUE: An air contrast upper gastrointestinal series was performed in the usual manner. Standard level fluoroscopic mode of operation utilized. FINDINGS: Instrumentation Fitter image demonstrates a large amount of stool in the ascending colon. 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 No obstruction, mass, or ulceration. Normal motility. DUODENUM:Normal. No ulceration or diverticulum. OTHER: Negative. IMPRESSION: Lobular persistent narrowing of the mid to distal esophagus, direct visualization is recommended Electronically authenticated by: ZI BEAULIEU Date: 2022-02-25 12:00 [facility] Clinical Note 02-25-2022 Note Date & Type Note Facility 02-25-2022 Note PROCEDURE: Esophagra m, XR GI UPPER AIR KUB DUAL CONTRAST, XR CINERADIOGRAPHY COMPARISON: None. HISTORY: Acquired diverticulum of esophagus , food stuck in mid throat TECHNIQUE: An air contrast upper gastrointestinal series was performed in the usual manner. Standard level fluoroscopic mode of operation utilized. FINDINGS: Instrumentation Fitter image demonstrates a large amount of stool in the ascending colon. 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 No obstruction, mass, or ulceration. Normal motility. DUODENUM:Normal. No ulceration or diverticulum. OTHER: Negative. IMPRESSION: Lobular persistent narrowing of the mid to distal esophagus, direct visualization is recommended Electronically authenticated by: ZI BEAULIEU Date: 2022-02-25 12:00 [facility] Evaluation note Note Date & Type Note Facility Evaluation note Diagnosis Acquired diverticulum of esophagus Diverticulum of esophagus, acquired Esophageal stricture Stricture and stenosis of esophagus documented in this encounter [facility] Evaluation note Note Date & Type Note Facility Evaluation note Diagnosis Anxiety Anxiety state, unspecified Bipolar 2 disorder (CMS/HCC) Other bipolar disorders documented in this encounter [facility] Evaluation note Note Date & Type Note Facility Evaluation note Diagnosis Anxiety Anxiety state, unspecified documented in this encounter [facility] Instructions Note Date & Type Note Facility Instructions Not on filedocumented in this en counter [facility] Summary Purpose Family History No Family History Records FoundNo Family History Records Found Advance Directives No Advanced Directives Records FoundNo Advanced Directives Records Found Additional Source Comments INFORMATION SOURCE (unrecogn ized section and content) DATE CREATED AUTHOR 01/27/2023 [facility] DATE CREATED AUTHOR AUTHOR'S ORGANIZ ATION 08/21/2024 [facility] EPIC Reason for Visit (unrecogniz ed section and content) Reason Comments Med Refill Reason Comments Med Management Follow-up Care Teams (unrecognized sec tion and content) Soap Drier Operator Relationship Specialty Start Date End Date Bridgett Michelle APRN-SUPERVISOR [address] [place] [id number] PCP - General Family Medicine 02/21/22 Soap Drier Operator Relationship Specialty Start Date End Date Gene Michelle MD [address] [place] [address] PCP - General Family Medicine 03/31/23 María Salmon APRN-POWER SYSTEM OPERATOR [address] [address] Nurse Practitioner Behavioral Health 03/31/23 Soap Drier Operator Relationship Specialty Start Date End Date Gene Michelle MD [address] [place] [address] PCP - General [facility] 03/31/23 [facility] [address] [address] Nurse Practitioner [facility] 03/31/23 Soap Drier Operator Relationship Specialty Start Date End Date Gene Michelle MD [address] [place] [address] PCP - General [facility] 03/31/23 Mar[facility] 112 [facility] [address] [place] [address] Nurse Practitioner [facility] 03/31/23 FOR RECORDS PERTAINING TO PATIENTS WHO ARE OR HAVE BEEN ENROLLED IN A CHEMICAL DEPENDENCY/SUBSTANCEABUSE PROGRAM, SOME INFORMATION MAY BE OMITTED. This clinical summary was aggregated from multiple sources. Caution should be exercised in using it in the provision of clinical care. This summary normalizes information from multiple sources, and as a consequence, information in this document may materially change the coding, format and clinical context of patient data. In addition, data may be omitted in some cases. CLINICAL DECISIONS SHOULD BE BASED ON THE PRIMARY CLINICAL RECORDS. [facility] [employer] provides no warranty or guarantee of the accuracy or completeness of information in this document.
[2024-11-21 14:44] LABS: Estimated Average Glucose 123 mg/dL; Glycohemoglobin A1C 5.9 % (4.5-6.2)
[2024-11-21 14:50] LABS: Basophils Absolute Auto 0.1 10^3/uL (0.0-0.1); Eosinophils Absolute Auto 0.2 10^3/uL (0.0-0.7); Eosinophils Percent Auto 3.2 % (0.9-7.0); Hematocrit 39.2 % (36.0-48.0); Hemoglobin 12.6 g/dL (12.0-16.0); Immature Granulocytes Abs Auto 0.03 10^3/uL (0.00-0.03); Immature Granulocytes Pct Auto 0.4 % (0.0-0.5); Lymphocytes Absolute Auto 2.2 10^3/uL (1.2-3.8); Lymphocytes Percent Auto 30.4 % (20.5-60.0); Mean Corpuscular HGB Conc 32.1 g/dL (29.9-35.2); Mean Corpuscular Hemoglobin 28.2 pg (26.7-34.0); Mean Corpuscular Volume 87.7 fL (81.0-99.0); Monocytes Absolute Auto 0.6 10^3/uL (0.3-0.8); Monocytes Percent Auto 8.6 % (1.7-12.0); Neutrophils Percent Auto 56.4 % (43.0-75.0); Platelet Count 248 10^3/uL (150-450); Red Blood Count 4.47 10^6/uL (4.20-5.40); Red Cell Distribution Width 12.7 % (11.0-15.0); White Blood Count 7.1 10^3/uL (4.0-11.0)
[2024-11-21 15:56] LABS: Alanine Aminotransferase 15 U/L (14-59); Albumin Level 3.8 g/dL (3.4-5.0); Alkaline Phosphatase 79 U/L (46-116); Anion Gap 10.5; Aspartate Amino Transferase 20 U/L (15-37); BUN Creatinine Ratio 13.7; Bilirubin Total 0.5 mg/dL (0.2-1.0); Calcium 9.2 mg/dL (8.5-10.1); Carbon Dioxide 28.5 mmol/L (21.0-32.0); Chloride 102 mmol/L (98-107); Cholesterol 204 mg/dL (<=200); Estimated GFR (African America 47 (>=60 mL/min/1.73m^2); Estimated GFR (Non-African Ame 39 (>=60 mL/min/1.73m^2); Globulin 3.7 g/dL; Glucose 83 mg/dL (74-106); HDL Cholesterol 67 mg/dL (40-60); Sodium 137 mmol/L (136-145); Thyroid Stimulating Hormone 2.887 uIU/mL (0.358-3.740); Total Protein 7.5 g/dL (6.4-8.2); Triglycerides 153 mg/dL (<=150); VLDL CHOLESTEROL 30.6 mg/dL
[2024-11-22 06:08] LABS: Insulin 8.8 uIU/mL (2.6-24.9)
== END 2024-11-21 14:10 | disposition home or self-care (01) ==
LOC: LAB 14:09
PROVIDERS: PCP Nurse Practitioner Family; Visit Provider Nurse Practitioner Family
DX: E78.5 Hyperlipidemia, unspecified (principal); D64.9 Anemia, unspecified; R73.09 Other abnormal glucose; E03.9 Hypothyroidism, unspecified; Z79.899 Other long term (current) drug therapy; E55.9 Vitamin D deficiency, unspecified; I10 Essential (primary) hypertension
CPT/HCPCS: 36415; 80053; 80061; 82306; 83036; 83525; 83540; 84436; 84443; 84481; 85025

== ENCOUNTER 2025-01-15 11:16 | Outpatient (REF) | payer MEDICARE, SELFPAY ==
--- OUTSIDE RECORDS SUMMARY | 2025-01-14 12:21 | XMS_ITS | CCD ---
Author Organization [facility] CliniSypa Care Team Providers Care Fire Suppression Captain Name Role Phone TAL ., DR BRAD Mancia Admitting Unavaila ble GRPERRI ., DR BRAD Mancia Attending Unavaila jonas [facility] Unavailable GRILLIS ., DR BRAD Mancia Attending Unavaila ble GRILLIS ., DR BRAD Mancia Consulting Unavaila ble GRILLIVu ., DR BRAD Mancia Admitting Unavaila ble ROSS, [facility] Primary Care Unavailable KENNEDY, DR JENNIE Aguila Consulting Unavailable MUNIRA ., FERNANDO DUDLEY Consulting Unavailjude KRUGER ., DR BURKS Consulting Unavailable KATHERINE NORIEGA Consulting Unavaila ble GRILLIS ., DR BRAD Mancia Admitting Unavaila ble GRILLIVu ., DR BRAD Mancia Attending Unavaila ble GREPRRI ., DR BRAD Mancia Consulting Unavaila jonas MICHELLE [facility] Primary Care Unavailable ASTRIDJEAN-CLAUDE Consulting Unavailable GOLDIE KHAN Consulting Unavailable GRILLIS ., DR BRAD Mancia Attending Unavaila ble GRILLIS ., DR BRAD Mancia Admitting Unavaila ble ROSS, [facility] BRIDGETT MICHELLE Admitting Unavailable BRIDGETT MICHELLE Attending Unavailable ABDULLAHIILLIS ., DR BRAD Mancia Attending Unavaila ble GRILLIS ., DR BRAD Mancia Consulting Unavaila ble GRILLIS ., DR BRAD Mancia Admitting Unavaila ble ROSS, [facility] Unavailable SALINE, DR ZI Nixon Consulting Unavailable BRIDGETT MICHELLE Consulting Unavailable MIGUEL ANGEL BRIDGETT Primary Care Unavailable BRIDGETT MICHELLE Admitting Unavailable BRIDGETT MICHELLE Attending Unavailable Kira-Nossek CONTINUITY EDITOR-IP NETWORK ARCHITECT, María M Unavailable Gene Michelle MD Primary Care Provider [phone] Miguel Angel OLMSTEAD-SKI EDGE PAINTERBridgett Primary Care Provider Gene Michelle MD Primary Care Provider [phone] MARÍA SALMON Attending MARÍA Ornelas Attending Ingridab MARÍA Tay Attending Unavailab MARÍA Tay Attending Unavailab le Allergies Allergy Classification Reported Allergen(s) Allergy Type Date of Onset Reaction(s) Facility (2 sources) Etodolac Drug Allergy [facility] (7 sources) Etodolac Propensity to adverse reactions 3 [facility] (7 sources) Lactobacillus acidophilus Drug Allergy 3 [facility] (1 source) Budesonide Drug Allergy 2 Vomiting [facility] (1 source) Etodolac Drug Allergy 2 [facility] Medications Current Medications Medication Drug Class(es) Dates Sig (Normalized) Sig (Original) ALPRAZolam 0.25 mg oral tablet (12 sources) Benzodiazepine Start: 12-19-2024 ALPRAZolam (Xanax) 0.25 MG tablet Indications: Anxiety Take 1 tablet (0.25 mg) by mouth as needed at bedtime for anxiety 30 tablet 12/19/2024 Active Start: 12-19-2024 ALPRAZolam (Xa nax) 0.25 MG tablet Indications: Anxiety Take 1 tablet (0.25 mg) by mouth as needed at bedtime for anxiety 30 tablet 12/19/2024 Active Start: 10-14-2024 End: 12-19-2024 take 1 tablet by mouth once daily as needed for anxiety ALPRAZolam (Xanax) 0.25 MG tablet Indications: Anxiety TAKE 1 TABLET BY MOUTH ONCE DAILY NEEDED FOR ANXIETY 30 tablet 10/14/2024 12/19/2024 Discontinued (Reorder) Start: 05-02-2024 End: 09-19-2024 take 1 tablet [...] Active amitriptyline hydrochloride 50 mg oral tablet (12 sources) Tricyclic Antidepressant Start: 12-19-2024 take 1 tablet by mouth at bedtime amitriptyline (Elavil) 50 MG tablet Indications: Bipolar 2 disorder (CMS/HCC) Take 1 tablet (50 mg) by mouth at bedtime 90 tablet 12/19/2024 Active Start: 12-19-2024 take 1 tablet by william th at bedtime amitriptyline (Elavil) 50 MG tablet Indications: Bipolar 2 disorder (CMS/HCC) Take 1 tablet (50 mg) by mouth at bedtime 90 tablet 12/19/2024 Active Start: 07-19-2024 End: 12-19-2024 take 1 tablet by mouth at bedtime amitriptyline (Elavil) 50 MG tablet Indications: Bipolar 2 disorder (CMS/HCC) Take 1 tablet (50 mg) by mouth at bedtime 90 tablet 08/20/2024 12/19/2024 Discontinued (Reorder) Start: 12-24-2021 take 1 tablet by william th once daily amitriptyline (ELAVIL) 50 mg tablet TAKE 1 TABLET BY MOUTH EVERY DAY FOR 90 DAYS 0 12/24/2021 Active cholecalciferol 0.025 mg oral tablet (2 sources) Vitamin D take 1 tablet by mouth once daily cholecalciferol (Vitamin D-3) 25 MCG (1000 UT) tablet Take 1,000 Units by mouth Daily Patient taking 1 tab po daily Active lamoTRIgine 150 mg oral tablet (12 sources) Mood Stabilizer, Anti-epileptic Agent Start: 05-02-20 24 End: 03-19-20 25 take 1 tablet by mouth once daily lamoTRIgine (LaMICtal) 150 MG tablet Indications: Bipolar 2 disorder (CMS/HCC) Take 1 tablet (150 mg) by mouth Daily 90 tablet 12/19/2024 03/19/2025 Active Start: 12-24-2021 take 1 tablet by william th once daily lamoTRIgine (LaMICtal) 200 mg tablet TAKE 1 TABLET BY MOUTH EVERY DAY FOR 90 DAYS 0 12/24/2021 Active latanoprost 0.05 mg/ml ophthalmic solution (8 sources) Prostaglandin Analog Start: 06-19-2022 take 1 [...] Active levothyroxine sodium 0.05 mg oral tablet (8 sources) l-Thyroxine Start: 12-24-2021 take 1 tablet by mouth before mealtime levothyroxine (Synthroid, Levoxyl) 50 MCG tablet Take 50 mcg by mouth in the morning. Take before meals. 03/14/2023 Active metoprolol tartrate 25 mg oral tablet (8 sources) beta-Adrenergic Hu Start: 12-14-2021 take 1 tablet by mouth in the morning metoprolol tartrate (Lopressor) 25 MG tablet Take 25 mg by mouth in the morning and 25 mg before bedtime. 02/10/2023 Active naproxen 500 mg oral tablet (7 sources) Nonsteroidal Anti-inflammatory Drug Start: 03-15-2023 take 1 tablet by mouth in the morning naproxen (Naprosyn) 500 MG tablet Take 500 mg by mouth in the morning. 03/15/2023 Active omeprazole 40 mg delayed release oral capsule (9 sources) Proton Pump Inhibitor Start: 12-18-2023 take [...] 12/18/2023 Discontinued simvastatin 20 mg oral tablet (8 sources) HMG-CoA Reductase Inhibitor Start: 12-24-2021 take 1 tablet by mouth at bedtime simvastatin (Zocor) 20 MG tablet Take 20 mg by mouth at bedtime. 03/14/2023 Active Problems Active Problems Problem Classification Problem Date Documented Date Episodic/Chronic Anxiety disorders (13 sources) Anxiety disorder, unspecified; Translations: [Anxiety] Onset: [...] esophagitis; Translations: [Esophageal obstruction] Onset: 03-09-2022 Chronic Essential hypertension (6 sources) Essential (primary) hypertension; Translations: [Hypertensive disorder] Onset: 02-17-2022 Chronic Hypertension with complications and secondary hypertension (1 source) Hypertensive chronic kidney disease with stage 1 through stage 4 chronic kidney disease, or unspecified chronic kidney disease; Translations: [HTN CKD W/STAGE 1-4 CKD/UNS CKD] Onset: 03-11-2022 Chronic Miscellaneous mental health disorders (2 sources) Insomnia disorder related to another mental disorder; Translations: [Insomnia due to other mental disorder] 12-19-2024 Chronic Mood disorders (18 sources) Bipolar II disorder; Translations: [Bipolar II disorder] Onset: 03-04-2023 03-04-2023 Chronic Osteoarthritis (1 source) Unspecified osteoarthritis, unspecified site; Translations: [UNSPECIFIED OSTEOARTHRITIS UNS SITE] Onset: 02-17-2022 Chronic Residual codes; unclassified (9 sources) Insomnia; Translations: [Insomnia, unspecified] Onset: 03-13-2024 03-13-2024 Episodic Unclassified (1 source) GASTR-ESOPH RFLX DS ESPHGTS [...] Translations: [OTHER ABNORMAL GLUCOSE] Onset: 09-08-2022 Episodic Esophageal disorders (5 sources) Diverticulum of esophagus, acquired; Translations: [Acquired diverticulum of esophagus] Onset: 02-25-2022 Episodic Intestinal obstruction without hernia (1 source) Other intestinal obstruction unspecified as to partial versus complete obstruction; Translations: [OTH INTEST OBS UNS PART VS CMPL OBS] Onset: 03-02-2022 Episodic Mood disorders (2 sources) Mood disorders Onset: 12-19-2024 12-19-2024 Other aftercare (1 source) Other residential (current) drug therapy; Translations: [OTH CONFERENCE RESERVATIONIST CURRENT DRUG THERAPY] Onset: 02-17-2022 Episodic Other [...] OTH PRT DGSTV TRACT] Onset: 03-11-2022 Episodic Screening and history of mental health and substance abuse codes (1 source) Personal history of nicotine dependence; Translations: [PERSONAL HISTORY OF NICOTINE DEPEND] Onset: 02-17-2022 Episodic Results Test Name Value Interpretation Reference Range Facil ity INSULINon 07-28-2022 Insulin 9.9 uIU/mL Normal 2.6-24.9 [facility] Comment on above: Performed By: #### C BC #### [facility] [address] [address] [address] Deandre Ren CBC AUTO DIFFon 07-27-2022 BASO # 0.1 103/ul Normal 0.0-0.1 [facility] Comment on above: Performed By: #### C BC #### [facility] [address] [place] [address] Dr. Deandre Ren Basophils/100 WBC (Bld) 1.0 % Normal 0.2-2.0 [facility] Comment on above: Performed By: #### C BC #### [facility] [address] [place] [address] Dr. Deandre Ren EO # 0.2 103/ul Normal 0.0-0.7 [facility] Comment on above: Performed By: #### C BC #### [facility] [address] [place] [address] Dr. Deandre Ren Eosinophils/100 WBC (Bld) 3.2 % Normal 0.9-7.0 [facility] Comment on above: Performed By: #### C BC #### [facility] [address] [place] [address] Dr. Deandre Ren Erythrocyte distribution width (RBC) [Ratio] 13.0 % Normal 11.0-15.0 [facility] Comment on above: Performed By: #### C BC #### [facility] [address] [place] [address] Dr. Deandre Ren Hematocrit (Bld) [Volume fraction] 40.4 % Normal 36.0-48.0 [facility] Comment on above: Performed By: #### C BC #### [facility] [address] [place] [address] Dr. Deandre Ren Hemoglobin (Bld) [Mass/Vol] 13.0 g/dL Normal 12.0-16.0 [facility] Comment on above: Performed By: #### C BC #### [facility] [address] [place] [address] Dr. Deandre Ren IG # 0.03 10e3/ul Normal 0.00-0.03 [facility] Comment on above: Performed By: #### C BC #### [facility] [address] [place] [address] Dr. Deandre Ren IG % 0.4 % Normal 0.0-0.5 [facility] Comment on above: Performed By: #### C BC #### [facility] [address] [place] [address] Dr. Deandre Ren LYMPH # 1.9 103/ul Normal 1.2-3.8 [facility] Comment on above: Performed By: #### C BC #### [facility] [address] [place] [address] Dr. Deandre Ren Lymphocytes/100 WBC (Bld) 27.1 % Normal 20.5-60.0 [facility] Comment on above: Performed By: #### C BC #### [facility] [address] [place] [address] Dr. Deandre Ren MANUAL DIFF REQ NO Normal [facility] Comment on above: Performed By: #### C BC #### [facility] [address] [place] [address] Dr. Deandre Ren MCH (RBC) [Entitic mass] 28.5 pg Normal 26.7-34.0 [facility] Comment on above: Performed By: #### C BC #### [facility] [address] [place] [address] Dr. Deandre Ren MCHC (RBC) [Mass/Vol] 32.2 g/dL Normal 29.9-35.2 [facility] Comment on above: Performed By: #### C BC #### [facility] [address] [place] [address] Dr. Deandre Ren MCV (RBC) [Entitic vol] 88.6 fL Normal 81.0-99.0 [facility] Comment on above: Performed By: #### C BC #### [facility] [address] [place] [address] Dr. Deandre Ren MONO # 0.6 103/ul Normal 0.3-0.8 [facility] Comment on above: Performed By: #### C BC #### [facility] [address] [place] [address] Dr. Deandre Ren Monocytes/100 WBC (Bld) 9.1 % Normal 1.7-12.0 [facility] Comment on above: Performed By: #### C BC #### [facility] [address] [place] [address] Dr. Deandre Ren NEUT # 4.1 103/ul Normal 1.4-6.5 [facility] Comment on above: Performed By: #### C BC #### [facility] [address] [place] [address] Dr. Deandre Ren Neutrophils/100 WBC (Bld) 59.2 % Normal 43.0-75.0 [facility] Comment on above: Performed By: #### C BC #### [facility] [address] [place] [address] Dr. Deandre Ren Platelet mean volume (Bld) [Entitic vol] 9.8 fL Normal 9.5-13.5 [facility] Comment on above: Performed By: #### C BC #### [facility] [address] [place] [address] Dr. Deandre Ren PLT 237 103/ul Normal 150-450 [facility] Comment on above: Performed By: #### C BC #### [facility] [address] [place] [address] Dr. Deandre Ren RBC 4.56 106/ul Normal 4.20-5.40 [facility] Comment on above: Performed By: #### C BC #### [facility] [address] [place] [address] Dr. Deandre Ren WBC 6.9 103/ul Normal 4.0-11.0 [facility] Comment on above: Performed By: #### C BC #### [facility] [address] [address] [address] Deandre Ren FREE THYROXINE INDEX T7on FTI 3.43 Normal 1.30-4.50 [facility] Comment on above: Performed By: #### C BC #### [facility] [address] [address] [address] Deandre Ren T3U 34.0 % Normal 30.0-39.0 [facility] Comment on above: Performed By: #### C BC #### [facility] [address] [place] [address] Dr. Deandre Ren T4 [Mass/Vol] 10.10 ug/dL Normal 4.80-13.90 [facility] Comment on above: Performed By: #### C BC #### [facility] [address] [place] [address] Dr. Deandre Ren GLYCOHEMOGLOBIN A1Con 2021 ADA RECOMMENDATION SEE BELOW Normal [facility] Comment on above: Result Comment: ADA RECOMMENDED LIMIT 4.0 - 6.0 ADA THERAPEUTIC TARGET < 7.0 ACTION SUGGESTED > 7.0 Performed By: #### A 1C #### [facility] [address] [place] [address] Dr. Deandre Ren Glucose [Mass/Vol] 114 mg/dL Normal The [facility] Comment on above: Performed By: #### A 1C #### [facility] [address] [place] [address] Dr. Deandre Ren HbA1c (Bld) [Mass fraction] 5.6 % Normal 4.5-6.2 [facility] Comment on above: Performed By: #### A 1C #### [facility] [address] [place] [address] Dr. Deandre Ren IRONon 07-27-2022 Iron [Mass/Vol] 106.0 ug/dL Normal 50.0-170.0 [facility] Comment on above: Performed By: #### I BELKIS #### [facility] [address] [place] [address] Dr. Deandre Ren LIPID PROFILEon 07-27-2022 CHOL-HDL RATIO NORM SEE BELOW Normal [facility] Comment on above: Result Comment: 3.3 - 4.4 LOW RISK 4.4 - 7.1 AVERAGE RISK 7.1 - 11.0 MODERATE RISK >11.0 HIGH RISK Performed By: #### C BC #### [facility] [address] [address] [address] Deandre Ren Cholesterol [Mass/Vol] 218 mg/dL Critically high <=200 [facility] Comment on above: Performed By: #### C BC #### [facility] [address] [address] [address] Deandre Ren Cholesterol in HDL [Mass/Vol] 74 mg/dL Critically high 40-60 [facility] Comment on above: Performed By: #### C BC #### [facility] [address] [address] [address] Deandre Ren Cholesterol in LDL [Mass/Vol] 98.0 mg/dL Normal [facility] Comment on above: Performed By: #### C BC #### [facility] [address] [address] [address] Deandre Ren Cholesterol.total/Cho lesterol in HDL [Mass ratio] 2.9 {ratio} Normal [facility] Comment on above: Performed By: #### C BC #### [facility] [address] [address] [address] Deandre Ren HDL NORMAL > or = 60 mg/dl - LOW CARDIOVASCULAR RISK <40 mg/dl - HIGH CARDIOVASCULAR RISK Normal [facility] Comment on above: Performed By: #### C BC #### [facility] [address] [address] [address] Deandre Ren LDL CALC NORMAL SEE BELOW Normal [facility] Comment on above: Result Comment: <100 mg/dl OPTIMAL 100 - 129 mg/dl NEAR OR ABOVE OPTIMAL 130 - 159 mg/dl BORDERLINE HIGH 160 - 189 mg/dl HIGH >190 mg/dl VERY HIGH Performed By: #### C BC #### [facility] [address] [address] [address] Deandre Ren Triglyceride [Mass/Vol] 230 mg/dL Critically high <=150 [facility] Comment on above: Performed By: #### C BC #### [facility] [address] [place] [address] Dr. Deandre Ren VLDL CALC 46.0 mg/dL Normal [facility] Comment on above: Performed By: #### C BC #### [facility] [address] [place] [address] Dr. Deandre Ren PROF 14(COMP METB)on 022 Albumin [Mass/Vol] 3.6 g/dL Normal 3.4-5.0 [facility] Comment on above: Performed By: #### C BC #### [facility] [address] [place] [address] Dr. Deandre Ren Albumin/Globulin [Mass ratio] 0.8 {ratio} Normal [facility] Comment on above: Performed By: #### C BC #### [facility] [address] [place] [address] Dr. Deandre Ren ALP [Catalytic activity/Vol] 116 U/L Normal 46-116 [facility] Comment on above: Performed By: #### C BC #### [facility] [address] [place] [address] Dr. Deandre Ren ALT [Catalytic activity/Vol] 30 U/L Normal 14-59 [facility] Comment on above: Performed By: #### C BC #### [facility] [address] [place] [address] Dr. Deandre Ren Anion gap [Moles/Vol] 9.6 mmol/L Normal [facility] Comment on above: Performed By: #### C BC #### [facility] [address] [place] [address] Dr. Deandre Ren AST [Catalytic activity/Vol] 30 U/L Normal 15-37 [facility] Comment on above: Performed By: #### C BC #### [facility] [address] [place] [address] Dr. Deandre Ren Bilirubin [Mass/Vol] 0.4 mg/dL Normal 0.2-1.0 [facility] Comment on above: Performed By: #### C BC #### [facility] [address] [address] [address] Deandre Ren Calcium [Mass/Vol] 9.3 mg/dL Normal 8.5-10.1 [facility] Comment on above: Performed By: #### C BC #### [facility] [address] [address] [address] Deandre Ren Chloride [Moles/Vol] 102 mmol/L Normal 98-107 [facility] Comment on above: Performed By: #### C BC #### [facility] [address] [address] [address] Deandre Ren CO2 [Moles/Vol] 31.0 mmol/L Normal 21.0-32.0 [facility] Comment on above: Performed By: #### C BC #### [facility] [address] [address] [address] Deandre Ren Creatinine [Mass/Vol] 1.09 mg/dL Critically high 0.55-1.02 [facility] Comment on above: Performed By: #### C BC #### [facility] [address] [address] [address] Deandre Ren EGFR-AF WELSH 58 mL/min/1.73m2 Critically low >=60 [facility] Comment on above: Performed By: #### C BC #### [facility] [address] [address] [address] Deandre Ren EGFR-NON AF WELSH 48 mL/min/1.73m2 Critically low >=60 [facility] Comment on above: Performed By: #### C BC #### [facility] [address] [address] [address] Deandre Ren Globulin (S) [Mass/Vol] 4.3 g/dL Normal [facility] Comment on above: Performed By: #### C BC #### [facility] [address] [address] [address] Deandre Ren Glucose [Mass/Vol] 95 mg/dL Normal 74-106 [facility] Comment on above: Performed By: #### C BC #### [facility] [address] [address] [address] Deandre Ren Potassium [Moles/Vol] 3.6 mmol/L Normal 3.5-5.1 [facility] Comment on above: Performed By: #### C BC #### [facility] [address] [address] [address] Deandre Ren Protein [Mass/Vol] 7.9 g/dL Normal 6.4-8.2 [facility] Comment on above: Performed By: #### C BC #### [facility] [address] [address] [address] Deandre Ren Sodium [Moles/Vol] 139 mmol/L Normal 136-145 [facility] Comment on above: Performed By: #### C BC #### [facility] [address] [place] [address] Dr. Deandre Ren Urea nitrogen [Mass/Vol] 12.0 mg/dL Normal 7.0-18.0 [facility] Comment on above: Performed By: #### C BC #### [facility] [address] [place] [address] Dr. Deandre Ren Urea nitrogen/Creatinine [Mass ratio] 11.0 mg/mg Normal [facility] Comment on above: Performed By: #### C BC #### [facility] [address] [place] [address] Dr. Deandre Ren TSHon 07-27-2022 TSH 2.450 uIU/mL Normal 0.358-3.740 [facility] Comment on above: Performed By: #### C BC #### [facility] [address] [place] [address] Dr. Deandre Ren CBC AUTO DIFFon 02-09-2022 BASO # 0.1 103/ul Normal 0.0-0.1 [facility] Comment on above: Performed By: #### C BC #### [facility] [address] [address] [address] Deandre Ren Basophils/100 WBC (Bld) 0.8 % Normal 0.2-2.0 [facility] Comment on above: Performed By: #### C BC #### [facility] [address] [place] [address] Dr. Deandre Ren EO # 0.2 103/ul Normal 0.0-0.7 [facility] Comment on above: Performed By: #### C BC #### [facility] [address] [place] [address] Dr. Deandre Ren Eosinophils/100 WBC (Bld) 2.1 % Normal 0.9-7.0 [facility] Comment on above: Performed By: #### C BC #### [facility] [address] [place] [address] Dr. Deandre Ren Erythrocyte distribution width (RBC) [Ratio] 12.8 % Normal 11.0-15.0 [facility] Comment on above: Performed By: #### C BC #### [facility] [address] [place] [address] Dr. Deandre Ren Hematocrit (Bld) [Volume fraction] 42.1 % Normal 36.0-48.0 [facility] Comment on above: Performed By: #### C BC #### [facility] [address] [place] [address] Dr. Deandre Ren Hemoglobin (Bld) [Mass/Vol] 13.6 g/dL Normal 12.0-16.0 [facility] Comment on above: Performed By: #### C BC #### [facility] [address] [place] [address] Dr. Deandre Ren IG # 0.02 10e3/ul Normal 0.00-0.03 [facility] Comment on above: Performed By: #### C BC #### [facility] [address] [place] [address] Dr. Deandre Ren IG % 0.2 % Normal 0.0-0.5 [facility] Comment on above: Performed By: #### C BC #### [facility] [address] [place] [address] Dr. Deandre Ren LYMPH # 1.7 103/ul Normal 1.2-3.8 [facility] Comment on above: Performed By: #### C BC #### [facility] [address] [place] [address] Dr. Deandre Ren Lymphocytes/100 WBC (Bld) 20.5 % Normal 20.5-60.0 [facility] Comment on above: Performed By: #### C BC #### [facility] [address] [place] [address] Dr. Deandre Ren MANUAL DIFF REQ NO Normal [facility] Comment on above: Performed By: #### C BC #### [facility] [address] [place] [address] Dr. Deandre Ren MCH (RBC) [Entitic mass] 28.5 pg Normal 26.7-34.0 [facility] Comment on above: Performed By: #### C BC #### [facility] [address] [place] [address] Dr. Deandre Ren MCHC (RBC) [Mass/Vol] 32.3 g/dL Normal 29.9-35.2 [facility] Comment on above: Performed By: #### C BC #### [facility] [address] [place] [address] Dr. Deandre Ren MCV (RBC) [Entitic vol] 88.1 fL Normal 81.0-99.0 [facility] Comment on above: Performed By: #### C BC #### [facility] [address] [place] [address] Dr. Deandre Ren MONO # 0.6 103/ul Normal 0.3-0.8 [facility] Comment on above: Performed By: #### C BC #### [facility] [address] [place] [address] Dr. Deandre Ren Monocytes/100 WBC (Bld) 6.6 % Normal 1.7-12.0 [facility] Comment on above: Performed By: #### C BC #### [facility] [address] [place] [address] Dr. Deandre Ren NEUT # 5.9 103/ul Normal 1.4-6.5 [facility] Comment on above: Performed By: #### C BC #### [facility] [address] [place] [address] Dr. Deandre Ren Neutrophils/100 WBC (Bld) 69.8 % Normal 43.0-75.0 [facility] Comment on above: Performed By: #### C BC #### [facility] [address] [place] [address] Dr. Deandre Ren Platelet mean volume (Bld) [Entitic vol] 10.7 fL Normal 9.5-13.5 [facility] Comment on above: Performed By: #### C BC #### [facility] [address] [place] [address] Dr. Deandre Ren PLT 259 103/ul Normal 150-450 [facility] Comment on above: Performed By: #### C BC #### [facility] [address] [place] [address] Dr. Deandre Ren RBC 4.78 106/ul Normal 4.20-5.40 [facility] Comment on above: Performed By: #### C BC #### [facility] [address] [place] [address] Dr. Deandre Ren WBC 8.5 103/ul Normal 4.0-11.0 [facility] Comment on above: Performed By: #### C BC #### [facility] [address] [place] [address] NECK ST W CONon [address] W CON EXAMINATION: CT [...] JENNIE BENAVIDES Date: 2022-02-09 15:50 Normal [facility] Covid-19 PCR (CVDTBH)on 01-22 SARS-CoV-2 (COVID-19) RNA ANAIS+probe Ql (Unsp spec) Not detected Normal NOT DETECTED [facility] Comment on above: Result Comment: When diagnostic [...] for this test is supported by the [place] of Health and Human Service's declaration that [...] longer be used). Performed By: #### C VDTBH #### [facility] [address] [place] [address] Dr. Deandre Ren PROF CHEM 8 (BAS METB)on Anion gap [Moles/Vol] 16.3 mmol/L Normal [facility] Comment on above: Performed By: #### C BC #### [facility] [address] [place] [address] [address] [address] Deandre Ren Calcium [Mass/Vol] 9.4 mg/dL Normal 8.5-10.1 The [facility] Comment on above: Performed By: #### C BC #### [facility] [address] [address] [address] Deandre Ren Chloride [Moles/Vol] 99 mmol/L Normal 98-107 [facility] Comment on above: Performed By: #### C BC #### [facility] [address] [address] [address] Deandre Ren CO2 [Moles/Vol] 23.7 mmol/L Normal 22.0-30.0 [facility] Comment on above: Performed By: #### C BC #### [facility] [address] [address] [address] Deandre Ren Creatinine [Mass/Vol] 1.10 mg/dL Critically high 0.52-1.04 [facility] Comment on above: Performed By: #### C BC #### [facility] [address] [place] [address] Dr. Deandre Ren EGFR-AF WELSH 58 mL/min/1.73m2 Critically low >=60 [facility] Comment on above: Performed By: #### C BC #### [facility] [address] [place] [address] Dr. Deandre Ren EGFR-NON AF WELSH 48 mL/min/1.73m2 Critically low >=60 [facility] Comment on above: Performed By: #### C BC #### [facility] [address] [address] [address] Deandre Ren Glucose [Mass/Vol] 87 mg/dL Normal 74-106 The [facility] Comment on above: Performed By: #### C BC #### [facility] [address] [address] [address] Deandre Ren Potassium [Moles/Vol] 3.0 mmol/L Critically low 3.4-5.0 [facility] Comment on above: Performed By: #### C BC #### [facility] [address] [place] [address] Dr. Deandre Ren Sodium [Moles/Vol] 136 mmol/L Critically low 137-145 [facility] Comment on above: Performed By: #### C BC #### [facility] [address] [place] [address] Dr. Deandre Ren Urea nitrogen [Mass/Vol] 17.0 mg/dL Normal 7.0-18.0 [facility] Comment on above: Performed By: #### C BC #### [facility] [address] [place] [address] Dr. Deandre Ren Urea nitrogen/Creatinine [Mass ratio] 15.5 mg/mg Normal [facility] Comment on above: Performed By: #### C BC #### [facility] [address] [place] [address] Dr. Deandre Ren PROTIMEon 02-09-2022 INR Coag (PPP) [Relative time] 1.03 {INR} Normal [facility] Comment on above: Performed By: #### P T, PTT #### [facility] [address] [place] [address] Dr. Deandre Ren INR GUIDELINES SEE BELOW Normal [facility] Comment on above: Result Comment: MARCUS RED INR: 2.0 - 3.0 CONDITIONS NOT LISTED BELOW 2.5 - 3.5 FOR PROSTHETIC HEART VALVE REPLACEMENT 2.5 - 3.5 RECURRENT THROMBOSIS Performed By: #### P T, PTT #### [facility] [address] [place] [address] Dr. Deandre Ren PT Coag (PPP) [Time] 11.1 s Normal 9.0-11.6 [facility] Comment on above: Performed By: #### P T, PTT #### [facility] [address] [place] [address] Dr. Deandre Ren PTTon 02-09-2022 aPTT Coag (Bld) [Time] 26.4 s Normal 22.3-36.2 [facility] Comment on above: Performed By: #### P T, PTT #### [facility] [address] [place] [address] Dr. Deandre Ren Vital Signs Date Time Vital Sign Value Performing Clinician Faci lity 12-19-2024 11:30-0500 Body mass index (BMI) [Ratio] 23.54 kg/m2 María Kira-Nossek CONTINUITY EDITOR-IP NETWORK ARCHITECT Work Phone: [facility] 12-19-2024 11:30-0500 Body weight 61.24 kg María Kira-Nossek CONTINUITY EDITOR-IP NETWORK ARCHITECT Work Phone: [facility] 12-19-2024 11:30-0500 Diastolic blood pressure 86 mm[Hg] María Kira-Nossek CONTINUITY EDITOR-IP NETWORK ARCHITECT Work Phone: [facility] 12-19-2024 11:30-0500 Heart rate 90 /min María Kira-Nossek CONTINUITY EDITOR-IP NETWORK ARCHITECT Work Phone: [facility] 12-19-2024 11:30-0500 Systolic blood pressure 138 mm[Hg] María Kira-Nossek CONTINUITY EDITOR-IP NETWORK ARCHITECT Work Phone: [facility] 08-20-2024 10:33-0400 Body mass index (BMI) [Ratio] 23.19 kg/m2 María Kira-Nossek CONTINUITY EDITOR-IP NETWORK ARCHITECT Work Phone: [facility] 08-20-2024 10:33-0400 Body weight 60.33 kg María Kira-Nossek CONTINUITY EDITOR-IP NETWORK ARCHITECT Work Phone: [facility] 08-20-2024 10:33-0400 Diastolic blood pressure 80 mm[Hg] María Kira-Nossek CONTINUITY EDITOR-IP NETWORK ARCHITECT Work Phone: [facility] 08-20-2024 10:33-0400 Heart rate 99 /min María Kira-Nossek CONTINUITY EDITOR-IP NETWORK ARCHITECT Work Phone: [facility] 08-20-2024 10:33-0400 Systolic blood pressure 118 mm[Hg] María Kira-Nossek CONTINUITY EDITOR-IP NETWORK ARCHITECT Work Phone: [facility] Encounters Encounter Date Encounter Type Care Provider Facility Start: 12-19-2024 End: 12-19-2024 Bamboo flowsheet María M Kira-Nossek CONTINUITY EDITOR-IP NETWORK ARCHITECT Work Phone: [facility] Start: 12-19-2024 End: 12-19-2024 Bamboo flowsheet María Mora Kira-Nossek CONTINUITY EDITOR-IP NETWORK ARCHITECT Work Phone: [facility] Start: 12-19-2024 End: 12-19-2024 Office outpatient visit 40 minutes María Mora Kira-Nossek CONTINUITY EDITOR-IP NETWORK ARCHITECT Work Phone: [facility] Comment on above: Anxiety; Bipolar 2 disorder (CMS/HCC); Insomnia, unspecified type; Insomnia due to other mental disorder Start: 12-19-2024 End: 12-19-2024 ambulatory MARÍA Abby KIRA-NOSSEK Not Available Start: 10-12-2024 End: 10-14-2024 Refill María Abby Kira-Nossek CONTINUITY EDITOR-IP NETWORK ARCHITECT Work Phone: [facility] Comment on above: Anxiety Start: 08-20-2024 End: 08-20-2024 Bamboo flowsheet María Mora Kira-Nossek CONTINUITY EDITOR-IP NETWORK ARCHITECT Work Phone: [facility] Start: 08-20-2024 End: 08-20-2024 Bamboo flowsheet María oMra Kira-Nossek CONTINUITY EDITOR-IP NETWORK ARCHITECT Work Phone: [facility] Start: 08-20-2024 End: 08-20-2024 ambulatory MARÍA Abby KIRA-NOSSEK Not Available Start: 08-20-2024 End: 08-20-2024 Office outpatient visit 25 minutes María Abby Kira-Nossek CONTINUITY EDITOR-IP NETWORK ARCHITECT Work Phone: [facility] Comment on above: Anxiety; Bipolar 2 disorder (CMS/HCC) Start: 05-02-2024 End: 05-02-2024 ambulatory MARÍA M KIRA-NOSSEK Not Available Start: 03-13-2024 End: 03-13-2024 ambulatory MARÍA Abby KIRA-NOSSEK Not Available Start: 12-15-2023 Kelton erickson MD Work Phone: [facility] Comment on above: Acquired diverticulu m of esophagus; Esophageal stricture Start: 07-27-2022 End: 01-25-2023 ambulatory BRIDGETT MICHELLE [...] Treatment Date Care Activity Detail Author Start: 03-20-2025 End: 03-20-2025 Patient encounter procedure 03/20/2025 11:30 AM EDT Office Visit [facility] [address] [facility] [address] [place] [address] María Salmon, CONTINUITY EDITOR-IP NETWORK ARCHITECT [address] [place] [address] [facility] Start: 12-19-2024 End: 12-19-2024 Patient encounter procedure 12/19/2024 11:30 AM EST Office Visit [facility] [address] [place] [address] María Salmon, CONTINUITY EDITOR-IP NETWORK ARCHITECT [address] [place] [address] Arrived [facility] Comment on above: Arrived Start: 11-20-2024 End: 11-20-2024 Patient encounter procedure 11/20/2024 11:30 AM EST Office Visit [facility] [address] [place] [id number] María Salmon, CONTINUITY EDITOR-[facility] [address] [place] [address] [facility] Start: 06-23-2024 Influenza vaccination Influenza Vacc ine (#1) [facility] Start: 11-01-2023 Adult BMI Screening Adult BMI Screen ing [facility] Start: 11-01-2023 Tobacco Screening Tobacco Screening [facility] Start: 06-23-2023 COVID-19 Vaccine ( season) COVID-19 Vaccine ( season) [facility] Start: 06-23-2023 Influenza vaccination Influenza Vacc ine [facility] Start: 2005 Fall Risk Screening Fall Risk Screen ing [facility] Start: 1990 Administration of varicella zoster vaccine Zoster (Shingles) Vaccine (1 of 2) [facility] Start: 1959 DTaP,Tdap and Td Vac cines (1 - Tdap) DTaP,Tdap and Td Vaccines (1 - Tdap) [facility] Start: 1952 Depression Screening Depression Scre ening [facility] Start: 1940 Medicare Annual Well ness Visit Medicare Annual Wellness Visit [facility] Immunizations Immunization Date Immunization Notes Care Provider [facility] 10-21-2023 influenza virus vaccine, unspecified formulation María Salmon CONTINUITY EDITOR-[facility] Work Phone: [facility] 07-01-2022 influenza virus vaccine, unspecified formulation Juan Grijalva MD Work Phone: [facility] Payers Date Payer Category Payer Private Health Insurance [id number] 2005 Medicare [id number] 1959 Medicare [id number] 1959 Self-pay 1959 Unknown [id number] 1940 Unknown [id number] 2.16.84 [id number] 1940 Unknown [id number] 2.16.84 [id number] 1940 Unknown [id number] 2.16.84 [id number] 1940 Unknown [id number] 2.16.84 [id number] 1940 Unknown [id number] 2.16.84 [id number] 1940 Unknown [id number] 2.16.84 [id number] 1940 Unknown [id number] 2.16.84 [id number] 1940 Unknown [id number] 2.16.84 [id number] 1940 Unknown [id number] 2.16.84 [id number] 1940 Unknown [id number] 2.16.84 [id number] 1940 Unknown [id number] 2.16.84 [id number] Social History Date Type Detail Facility Start: 02-21-2022 End: 03-04-2023 Tobacco smoking status NHIS Never smoked tobacco [facility] Start: 02-21-2022 End: 03-04-2023 Tobacco use and exposure Smokeless tobacco non-user [facility] Start: 05-02-2024 End: 12-19-2024 Alcoholic beverage intake Ex-drinker (finding) [facility] Start: 05-02-2024 End: 12-19-2024 History of Social function [facility] Start: 05-02-2024 End: 12-19-2024 Tobacco use panel [facility] Start: 04-11-2023 Alcohol Comment occassional tea [facility] Start: 1940 Sex assigned at Not on file P [facility] Start: 08-20-2024 Education 13 [facility] Start: 08-20-2024 Alcohol Comment Caffine: occassional tea [facility] Start: 11-01-2022 Alcohol intake Current drinke r of alcohol (finding) [facility] Childcare Unknown [facility] Start: 02-21-2022 Alcohol Comment socially [facility] Start: 03-30-2022 Gender identity Identifies as female gender (finding) [facility] Clinical Notes 02-25-2022 to 12-19-2024 María Salmon, CONTINUITY EDITOR-[facility] - 12/19/2024 11:30 AM ESTTelephone Encounter - Inez Dumont, [facility] - 10/14/2024 11:13 AM ESTTelephone Encounter - Inez Dumont, [facility] - 10/14/2024 11:13 AM EST Note Date & Type Note Facility 12-19-2024 History of Presen t illness Narrative Images from the original note were not included. HPI: Ilana Elaine is a 84 y.o. female with a history of depression and anxiety. Patient is here today for follow-up. Patient has been doing well since last appointment. We lowered lamictal last visit. Mood is reported as getting a little down in afternoon. Feels frustrated with aging limitation. Anxiety-worries excessively at times and uses xanax prn twice a week. Sleep is reported as good. Appetite is reported as unchanged. Difficulty with word finding. Easily distracted and short term memory limitations. Patient reports they have been compliant with medication regimen. Patient denies any side effects or somatic complaints. Patient denies abuse of substances. Medical problems since last visit: Has some difficulty with balance. Enjoys puzzles, and online computer. Psychosocial stressors include: Worries about what may be in her future. SUBJECTIVE: PAST MEDICAL HISTORY: Past Medical History: Diagnosis Date Anxiety Depression (CMS/HCC) Insomnia MEDICATIONS: Current Outpatient Medications Medication Instructions ALPRAZolam (XANAX) 0.25 mg, Oral, Nightly PRN amitriptyline (ELAVIL) 50 mg, Oral, Nightly cholecalciferol (VITAMIN D-3) 1,000 Units, Oral, Daily, Patient taking 1 tab po daily lamoTRIgine (LAMICTAL) 150 mg, Oral, Daily latanoprost (Xalatan) 0.005 % ophthalmic solution 1 drop, Nightly levothyroxine (SYNTHROID, LEVOXYL) 50 mcg, Daily before breakfast metoprolol tartrate (LOPRESSOR) 25 mg, 2 times daily naproxen (NAPROSYN) 500 mg, Every morning omeprazole (PRILOSEC) 40 mg, 2 times daily before meals simvastatin (ZOCOR) 20 mg, Nightly ALLERGIES: Allergies Allergen Reactions Etodolac Lactobacillus Sporogenes [...] Use Topics Alcohol use: Not Currently Comment: Caffine: occassional tea Drug use: Never Patient Health Questionnaire-9 Score: 5 LIANE-7 Total Score: 2 Patient Care Team: Gene Michelle MD as PCP - General (Family Medicine) María Salmon APRN-IP NETWORK ARCHITECT as Nurse Practitioner (Behavioral Health) PSYCHIATRIC REVIEW OF SYMPTOMS AND MENTAL STATUS EXAM ROS: Appearance Appearance: Normal grooming and hygiene. Appears stated age. Dressed appropriately for weather. Behavior Calm, cooperative, pleasant. Good posture. Psychomotor Activity Intact. No abnormal movements noted. Eye contact Good Speech Normal, clear, regular rate, rhythm and volume Affect Full range. Stable. Appropriate and congruent with mood. Mood anxious at times Thought Process Organized, logical, and goal directed Thought Content: Denies suicidal and homicidal ideation. Perception: Denies auditory or visual hallucinations. No evidence of delusions. Denies derealization and depersonalization. Cognition Alert and attentive during visit Memory Impaired recent memory/ remote memory intact Insight Good. Acknowledges predominant symptoms of illness and need for treatment Judgement Good. Able to make reasonable life decisions. OBJECTIVE: Visit Vitals BP 138/86 (BP Location: Right arm, Patient Position: Sitting, BP Cuff Size: Adult) Pulse 90 Wt 135 lb BMI 23.54 kg/m Smoking Status Never BSA 1.66 m No results found for: TSH No results [...] Anxiety Insomnia due to other mental disorder Treatment Plan/Recommendations: Psych Medication List ALPRAZolam Tablet, 0.25 MG, 1 tablet, Orally, once a day prn severe anxiety-patient aware of residential use benzodiazepines. Amitriptyline HCl Tablet, 50 MG, 1 tablet, Orally, Once a day LaMICtal Tablet, 150mg daily -Supportive counseling regarding future and health care options for additional mental health support and treatment. - RTC in 3months. Discussed any medication changes and follow-up plan with patient. Encouraged patient to call office sooner if symptoms worsen or if any questions/concerns arise. Patient was seen Face to Face, Total time spent with patient was 40min, which includes reviewing chart documents, previous notes/records, counseling and discussion with patient and/or coordination of care as described above. documented in this encounter [facility] 10-14-2024 Telephone encount er Note Attempted to reach patient, no answer does have follow up. [facility] 10-14-2024 Miscellaneous Notes Formattin g of this note might be different from the original. Attempted to reach patient, no answer does have follow up. documented in this encounter [facility] 08-20-2024 History of Presen t illness Narrative [...] and Time Memory/Concentration Short term intact and residential intact Insight/Judgement Good OBJECTIVE: Visit Vitals Smoking [...] time : 30min documented in this encounter [facility] 02-25-2022 Note PROCEDURE: Esophagra m, XR GI UPPER AIR KUB DUAL CONTRAST, XR CINERADIOGRAPHY COMPARISON: None. HISTORY: Acquired diverticulum of esophagus , food stuck in mid throat TECHNIQUE: An air contrast upper gastrointestinal series was performed in the usual manner. Standard level fluoroscopic mode of operation utilized. FINDINGS: Physical Therapy Aide image demonstrates a large amount of stool [...] authenticated by: ZI BEAULIEU Date: 2022-02-25 12:00 [facility] 02-25-2022 Note PROCEDURE: Esophagra m, XR GI UPPER AIR KUB DUAL CONTRAST, XR CINERADIOGRAPHY COMPARISON: None. HISTORY: Acquired diverticulum of esophagus , food stuck in mid throat TECHNIQUE: An air contrast upper gastrointestinal series was performed in the usual manner. Standard level fluoroscopic mode of operation utilized. FINDINGS: Physical Therapy Aide image demonstrates a large amount of stool [...] authenticated by: ZI BEAULIEU Date: 2022-02-25 12:00 [facility] Evaluation note Diagnosis Anxiety Anxiety state, unspecified Bipolar 2 disorder ([facility]) Other bipolar disorders documented in this encounter [facility] Healthcare[facility] note* Diagnosis Anxiety Anxiety state, unspecified documented in this encounter [facility] HealthcareEvaluation note* Diagnosis Acquired diverticulum of esophagus Diverticulum of esophagus, acquired Esophageal stricture Stricture and stenosis of esophagus documented in this encounter [facility] System[facility]* Diagnosis Anxiety Anxiety state, unspecified Bipolar 2 disorder (CMS/[facility]) Other bipolar disorders Insomnia, unspecified type Insomnia due to other mental disorder documented in this encounter [facility]ructionsNot on filedocumented in [facility] Purpose Family History No Family History Records FoundNo Family History Records Found Advance Directives No Advanced Directives Records FoundNo Advanced Directives Records Found Additional Source Comments INFORMATION SOURCE (unrecogn ized section and content) DATE CREATED AUTHOR 01/27/2023 [facility] DATE CREATED AUTHOR AUTHOR'S ORGANIZ ATION 12/21/2024 [facility] EPIC Care Teams (unrecognized sec tion and content) Fire Suppression Captain Relationship Specialty Start Date End Date Gene Michelle MD [address] [place], [place] [id number] PCP - General Family Medicine 03/31/23 María Salmon, CONTINUITY EDITOR-IP NETWORK ARCHITECT [address] [address] Nurse Practitioner Behavioral Health 03/31/23 Fire Suppression Captain Relationship Specialty Start Date End Date Gene Michelle MD [address] [place], [place] [id number] PCP - General Family Medicine 03/31/23 María Salmon, CONTINUITY EDITOR-IP NETWORK ARCHITECT [address] [facility] [address] [place] [address] Nurse Practitioner Behavioral Health 03/31/23 Fire Suppression Captain Relationship Specialty Start Date End Date Gene Michelle MD [address] [place], [place] [id number] PCP - General Family Medicine 03/31/23 María Salmon, CONTINUITY EDITOR-IP NETWORK ARCHITECT [address] [facility] [address] [place] [address] Nurse Practitioner Behavioral Health 03/31/23 Fire Suppression Captain Relationship Specialty Start Date End Date Bridgett Michelle, CONTINUITY EDITOR-SKI EDGE PAINTER [address] [place] [address] PCP - General Family Medicine 02/21/22 Fire Suppression Captain Relationship Specialty Start Date End Date Gene Michelle MD [address] [place] [id number] PCP - General Family Medicine 03/31/23 María Salmon, ISHAN-IP NETWORK ARCHITECT [address] [address] Nurse Practitioner Behavioral Health 03/31/23 Fire Suppression Captain Relationship Specialty Start Date End Date Gene Michelle MD [address] [place] [id number] PCP - General Family Medicine 03/31/23 María Salmon APRN-IP NETWORK ARCHITECT [address] [id number] Nurse Practitioner Behavioral Health 03/31/23 Reason for Visit (unrecogniz ed section and content) Reason Comments Med Management Follow-up Reason Comments Med Refill FOR RECORDS PERTAINING TO PATIENTS WHO ARE [...] BE BASED ON THE PRIMARY CLINICAL RECORDS. [employer] provides no warranty or guarantee of the accuracy or completeness of information in this document.
[2025-01-15 11:28] LABS: Bilirubin Urine NEGATIVE (NEGATIVE); Blood Urine SMALL (NEGATIVE); Clarity Urine CLEAR (CLEAR); Color Urine YELLOW (YELLOW); Glucose Urine UA NEGATIVE (NEGATIVE); Ketones Urine NEGATIVE (NEGATIVE); Leukocyte Esterase Urine LARGE (NEGATIVE); Nitrite Urine POSITIVE (NEGATIVE); Protein Urine NEGATIVE (NEG/TRACE); Specific Gravity Urine <=1.005 (1.005-1.025); Urobilinogen Urine 0.2 EU/dL (0.2-1.0)
[2025-01-15 11:37] LABS: Bacteria Urine LARGE #/HPF (NONE SEEN); Crystals Seen? None Seen #/HPF (None Seen); Mucus Urine TRACE (NONE SEEN); WBC Urine >100 #/HPF (NONE SEEN)
[2025-01-15 11:38] LABS: Cast Seen? NONE SEEN #/LPF (NONE SEEN); Squamous Epithelial Cell Urine MODERATE #/LPF (NONE/RARE); Transitional Epi Cells Urine RARE #/LPF (NONE SEEN); Urine Culture Indicated NO
== END 2025-01-15 11:17 | disposition home or self-care (01) ==
LOC: LAB 11:16
PROVIDERS: PCP Nurse Practitioner Family; Visit Provider Nurse Practitioner Family
DX: N39.0 Urinary tract infection, site not specified (principal)
CPT/HCPCS: 81001; 87086

== ENCOUNTER 2025-02-12 12:41 | Outpatient (OUT) | payer MEDICARE, SELFPAY ==
[2025-02-12 13:52] LABS: Bilirubin Urine NEGATIVE (NEGATIVE); Blood Urine NEGATIVE (NEGATIVE); Clarity Urine CLEAR (CLEAR); Color Urine LT. YELLOW (YELLOW); Glucose Urine UA NEGATIVE (NEGATIVE); Ketones Urine NEGATIVE (NEGATIVE); Leukocyte Esterase Urine NEGATIVE (NEGATIVE); Nitrite Urine NEGATIVE (NEGATIVE); Protein Urine NEGATIVE (NEG/TRACE); Specific Gravity Urine 1.015 (1.005-1.025); Urobilinogen Urine 0.2 EU/dL (0.2-1.0)
[2025-02-12 14:18] LABS: Bacteria Urine NONE SEEN #/HPF (NONE SEEN); Cast Seen? SEEN #/LPF (NONE SEEN); Crystals Seen? None Seen #/HPF (None Seen); Hyaline Casts Urine RARE; Mucus Urine TRACE (NONE SEEN); RBC Urine 0-2 #/HPF (0-2); Squamous Epithelial Cell Urine FEW #/LPF (NONE/RARE); Urine Culture Indicated NO; WBC Urine 0-2 #/HPF (NONE SEEN)
== END 2025-02-12 12:42 | disposition home or self-care (01) ==
LOC: LAB 12:45
PROVIDERS: PCP Nurse Practitioner Family; Visit Provider Nurse Practitioner Family
DX: N39.0 Urinary tract infection, site not specified (principal)
CPT/HCPCS: 81001; 87086

== ENCOUNTER 2025-06-06 10:18 | Outpatient (OUT) | payer MEDICARE, SELFPAY ==
--- OUTSIDE RECORDS SUMMARY | 2025-05-09 07:15 | XMS_ITS ---
Author Organization [facility] [place] Address [address] [place] [address] Care Team Providers Care Coil Spring Assembler Name Role Phone Bridgett Abbott Primary Care Provider Allergies Allergen (clinical drug ingredient) Drug/Non Drug Allergy documented on EMR Reaction Allergy Type Onset Date Status donepezil Aricept vomiting Drug Allergy Active etodolac Etodolac vomiting Drug Allergy Active Reason For Referral Reason GERD, esophageal str icture Diagnosis 1 Esophageal stricture (K22.2) Diagnosis 2 GERD (gastroesophage al reflux disease) (K21.9) Referral Organization [facility] Referring Provider First Name Bridgett Referring Provider Last Name Scar Referring Provider Speciality [facility] michelle Referred Provider Juan Grijalva Referred Provider Specialty Gastroentero logy Referral Priority Routine REASON FOR VISIT swallowing trouble and sore throat ongoing for the last few months Medications Medication SIG (Take, Route, Frequency, Duration) Notes Start Date End Date Status Simvastatin 20 MG 1 tablet in the even ing Orally Once a day for 90 days Active Naproxen 500 MG TAKE 1 TABLET BY ALBERTO TH TWICE DAILY NEEDED FOR PAIN AND FOR INFLAMMATION for 30 Active Metoprolol Tartrate 25 MG Take 1 tablet by mouth twice daily for 90 Active Omeprazole 40 MG 1 capsule 30 minutes before morning meal Orally BID for 90 days Active Nystatin 000023 UNIT/ML 4 mL Mouth/Throa t Four times a day for 14 days 12/13/2024 Active ALPRAZolam 0.25 MG TAKE 1 TABLET BY ALBERTO TH ONCE DAILY NEEDED FOR ANXIETY Oral for 30 Days Active Cefdinir 300 MG one capsule Orally B ID for 7 days 01/14/2025 Active Amitriptyline HCl 50 MG TAKE 1 TABLET BY MOUTH AT BEDTIME Oral for 90 Days Active Levothyroxine Sodium 50 MCG Take 1 table t by mouth once daily for 90 Active lamoTRIgine 200 MG TAKE 1 TABLET BY ALBERTO TH IN THE MORNING Oral for 90 Days Active Acetaminophen 500 MG 1 tablet as needed Orally every evening Active Social History Tobacco Use: Social History Observation Description Date Details (start date - stop date) Never Smoker NA - NA Tobacco Use/Smoking Question Answer Notes Patient is a nonsmoker AUDIT-C (Standard) Question Answer Notes Did you have a drink containing alcohol in the p ast year? No Points 0 Interpretation Negative Vital Signs Weight 122 lbs 05/09/2025 Height 63 in 05/09/2025 Blood pressure systolic 108 mm Hg 05/09/20 25 Blood pressure diastolic 60 mm Hg 025 BMI 21.61 kg/m2 05/09/2025 Encounters Encounter Location Date Provider Diagnosis [address] [address] 05/09/2025 Bridgett Abbott GERD (gastroesophageal reflux disease) K21.9 and Esophageal stricture K22.2 Assessments Encounter Date Diagnosis (ICD Code) Assessment Notes Treatment Notes Treatment Clinical Notes Section Notes 05/09/2025 GERD (gastroesophage al reflux disease) (ICD-10 - K21.9) continue omeprazole soft foods, small frequent as advised GI 05/09/2025 Esophageal stricture (ICD-10 - K22.2) fu rajesh Plan Of Treatment Treatment Notes Assessment Notes GERD (gastroesophageal reflux disease) continue omeprazole soft foods, small frequent as advised GI Esophageal stricture fu rajesh Referrals Referral Date Details 05/09/2025 05/09/2025, GERD, es ophageal stricture, Juan Grijalva Next Appt Details Follow Up: prn, Reason: Progress Notes * Ilana PETERSENDOB:[birth year] (85 yo F)Acc No.[id number]:05/09/2025 Progress Note Patient: Ilana GARCIA Provider: Leigh Abbott ([facility]), HEEL MOLDER :1940 A ge:85 Y S ex:Female Date:05/09/2025 Address:[address], [id number] Check In:11:10 AM ESTCheck O ut:11:34 AM EST Subjective: * Chief Complaints: * 1 . Swallowing trouble and sore throat ongoing for the last few months. * HPI: G eneral: has been having more trouble swallowing lately sometimes even water , comes and goes has lost 12 lbs since Luis Carlos had dilation done in past was off omeprazole for few weeks, due to refill issues, seemed to get worse than. * ROS: G eneral/Constitutional: Fever d enies. H eadache d enies. W eight loss?admits, is unintentional. O phthalmologic: Discharge d enies. E ye Pain d enies. I tching and redness d enies. E NT: Patient admits t rouble swallowing, intermittently worse.?Nasal congestion d enies. N grabiel discharge d enies. S ore throat d enies.? C ardiovascular: Chest tightness/ heavy pressure d enies. R apid heart rate d enies. S welling of extremities d enies. C hest pain d enies. ? R espiratory: Productive cough d enies. C hest pain d enies. C ough d enies. S hortness of breath d enies. W heezing d enies. ? G astrointestinal: Abdominal pain d enies. C onstipation d enies. D ecreased appetite d enies. D iarrhea d enies. N ausea d enies. V omiting?denies. G enitourinary: Urinary incontinence d enies. P ainful urination d enies. M usculoskeletal: Back pain d enies. N rufus pain d enies. M uscle aches d enies. S kin: Rash d enies. S kin lesion(s) d enies. ? * Active Problem List K58.9 IBS (irritable bowel syndrome) Modified On:11/16/2023W/U Status:confirmed R41.3 Memory impairment Modified On:11/16/2023/U Status:confirmed K22.2 Esophageal stricture Modified On:11/16/2023/U Status:confirmed K22.5 Esophageal diverticu lum, acquired Modified On:11/16/2023 Status:confirmed E78.5 Hyperlipidemia Modified On:11/16/2023 Status:confirmed K21.9 GERD (gastroesophage al reflux disease) Modified On:11/16/2023 Status:confirmed N18.30 Chronic kidney disea se (CKD), stage III (moderate) Modified On:11/16/2023 Status:confirmed F32.A Depression Modified On:11/16/2023 Status:confirmed I10 Essential (primary) hypertension Modified On:09/04/2023 Status:confirmed E55.9 Vitamin D deficiency Modified On:11/16/2023 Status:confirmed K14.6 Tongue burning sensa tion Modified On:12/13/2024 Status:confirmed * Medical History: D epression, GERD (gastroesophageal reflux disease), Chronic kidney disease (CKD), stage III (moderate), IBS (irritable bowel syndrome), Memory impairment, Hyperlipidemia, Esophageal diverticulum, acquired, Esophageal stricture. * Surgical History: D iverticulum esophagus , Polyp removal from cervix . * Family History: F ather: , prostate cancer, diagnosed with Unspecified essential hypertension, Unspecified heart disease, Other malignant neoplasm of unspecified site. M other: , depression. Brother(s): alive. S ister(s): alive. S on(s): alive. 1 brother(s) , 2 sister(s) - healthy. 1 son(s) - healthy. . * Social History: T obacco Use: T obacco Use/Smoking P atient is a n onsmoker D rug/Alcohol: A SAIGE-C (Standard) D id you have a drink containing alcohol in the past year? N o P oints 0 I nterpretation N egative * Medications: T aking Acetaminophen 500 MG Tablet 1 tablet as needed Orally every evening , Taking ALPRAZolam 0.25 MG Tablet TAKE 1 TABLET BY MOUTH ONCE DAILY NEEDED FOR ANXIETY Oral , Taking Amitriptyline HCl 50 MG Tablet TAKE 1 TABLET BY MOUTH AT BEDTIME Oral , Taking Cefdinir 300 MG Capsule one capsule Orally BID , Taking lamoTRIgine 200 MG Tablet TAKE 1 TABLET BY MOUTH IN THE MORNING Oral , Taking Levothyroxine Sodium 50 MCG Tablet Take 1 tablet by mouth once daily , Taking Metoprolol Tartrate 25 MG Tablet Take 1 tablet by mouth twice daily , Taking Naproxen 500 MG Tablet TAKE 1 TABLET BY MOUTH TWICE DAILY NEEDED FOR PAIN AND FOR INFLAMMATION , Taking Nystatin 712862 UNIT/ML Suspension 4 mL Mouth/Throat Four times a day , Taking Omeprazole 40 MG Capsule Delayed Release 1 capsule 30 minutes before morning meal Orally BID , Taking Simvastatin 20 MG Tablet 1 tablet in the evening Orally Once a day , Medication List reviewed and reconciled with the patient * Allergies: E todolac: vomiting, Aricept: vomiting. Objective: * Vitals: W t:122lbs, Ht: 63 in, BP:108/60mm Hg, BMI:21.61Index, Ht-cm: 160.02 cm, Wt-k.34 kg. * Examination: G eneral Examinations: GENERAL APPEARANCE: a lert and oriented, i n no acute distress. EYES: c onjunctiva normal, sclera non-icteric. NOSE: n ormal external appearance. THROAT: c lear. LUNGS: c lear anteriorly and posteriorly. CARDIO: r egular rate and rhythm, S1, S2 normal. ABDOMEN: s oft, nontender. MUSCULOSKELETAL: G ait and station normal. SKIN: w arm and dry. Assessment: * Assessment: 1. G ERD (gastroesophageal reflux disease) - K21.9 (Primary) 2 . E sophageal stricture - K22.2 Plan: * Treatment: 2. E sophageal stricture Notes: [facility] Referral To:uJan Grijalva [facility] Reason:GERD, esophageal stricture * Preventive Medicine: Screenings/Counseling: F ALL RISK SCREENING Fall Risk Assessment: N o falls in the past year * Follow Up: p rn * * Electronically signed by Yasmine Abbott , PARAFFIN MACHINE OPERATOR, CLAIMS ASSISTANT.HEEL [id number] on 05/09/2025 at 12:00 PM EDT Sign off status: Completed Visit Status: C HK (Check Out) true * Provider: Leigh Abbott ([facility]), HEEL MOLDER Date: 05/09/2025 Generated for Idaliai monster/Georgina/eTransmitting on: 06/06/2025 10:23 AM EDT History and Physical Notes * HPI (History of Present Illness) Category Sub-Category Detail Notes Category Not es General has been having more trouble swallowing lately sometimes even water , comes and goes has lost 12 lbs since Luis Carlos had dilation done in past was off omeprazole for few weeks, due to refill issues, seemed to get worse than Examination Category Sub-Category Detail Notes Category Not es General Examinations GENERAL APPEARANCE: alert a nd oriented, in no acute distress EYES: conjunctiva normal, sclera non-icteric EARS: NOSE: normal external appe arance THROAT: clear CARDIO: regular rate and rhy thm, S1, S2 normal LUNGS: clear anteriorly and posteriorly ABDOMEN: soft, nontender SKIN: warm and dry BACK: MUSCULOSKELETAL: Gait and station nor mal LYMPH NODES: Consultation Request Notes Referral Date Referring Provider Referred Provider Not es 05/09/2025 Bridgett Abbott, Juan GERD, eso phageal stricture
--- OUTSIDE RECORDS SUMMARY | 2025-06-04 07:00 | XMS_ITS ---
Author Organization [facility] in [place] Address [address] [place] [address] Care Team Providers Care Proof Operator Name Role Phone Bridgett Abbott Primary Care Provider Allergies Allergen (clinical drug ingredient) Drug/Non Drug Allergy documented on EMR Reaction Allergy Type Onset Date Status donepezil Aricept vomiting Drug Allergy Active etodolac Etodolac vomiting Drug Allergy Active REASON FOR VISIT subsequent medicare wellness Medications Medication SIG (Take, Route, Frequency, Duration) Notes Start Date End Date Status Acetaminophen 500 MG 1 tablet as needed Orally every evening Active Amitriptyline HCl 50 MG TAKE 1 TABLET BY MOUTH AT BEDTIME Oral for 90 Days Active ALPRAZolam 0.25 MG TAKE 1 TABLET BY ALBERTO TH ONCE DAILY NEEDED FOR ANXIETY Oral for 30 Days Active lamoTRIgine 200 MG TAKE 1 TABLET BY ALBERTO TH IN THE MORNING Oral for 90 Days Active Levothyroxine Sodium 50 MCG Take 1 table t by mouth once daily for 90 Active Vitamin D (Cholecalciferol) 50 MCG (1999) 1 capsule Orally Once a day Active Omeprazole 40 MG 1 capsule 30 minutes before morning meal Orally BID for 90 days Active Naproxen 500 MG TAKE 1 TABLET BY ALBERTO TH TWICE DAILY NEEDED FOR PAIN AND FOR INFLAMMATION for 30 Active Boost - as directed Orally A ctive Simvastatin 20 MG 1 tablet in the even ing Orally Once a day for 90 days Active Metoprolol Tartrate 25 MG Take 1 tablet by mouth twice daily for 90 Active Social History Tobacco Use: Social History Observation Description Date Details (start date - stop date) Never Smoker NA - NA Tobacco Use/Smoking Question Answer Notes Patient is a nonsmoker AUDIT-C (Standard) Question Answer Notes Did you have a drink containing alcohol in the p ast year? No Points 0 Interpretation Negative Vital Signs Weight 125.4 lbs 06/04/2025 Height 63 in 06/04/2025 Blood pressure systolic 104 mm Hg 06/04/20 25 Blood pressure diastolic 60 mm Hg 025 BMI 22.21 kg/m2 06/04/2025 Encounters Encounter Location Date Provider Diagnosis [facility] [address] [place] [address] 06/04/2025 Bridgett Abbott Encounter for Medicare annual wellness exam Z00.00 Assessments Encounter Date Diagnosis (ICD Code) Assessment Notes Treatment Notes Treatment Clinical Notes Section Notes 06/04/2025 Encounter for Medicare annual wellness exam (ICD-10 - Z00.00) patient presents to the office for a subsequent medicare wellness appointment, patient completed a vision test and can read at 20/13 with both eyes and follows regularly with her eye dr, anxiety, depression and safety screenings were completed without concerns she also completed a memory test and scored a 30/30. patient has no issues with her memory in daily life reported from patient. patient is due for a dexa scan and routine labs a toldof 30 mintues was spent with the patient Plan Of Treatment No Information Progress Notes * Ilana PETERSENDOB:[birth year] (85 yo F)Acc No.[id number]:06/04/2025 UNLOCKED PROGRESS NOTE Progress Note Patient: Ilana GARCIA Provider: Leigh Abbott ([facility]), SPORTS BETTING MANAGER :1940 A ge:85 Y S ex:Female Date:06/04/2025 Address:[address] [place], [place] [address] Check In:10:59 AM ESTCheck O ut:11:44 AM EST Subjective: * Chief Complaints: * 1 . Subsequent medicare wellness. * HPI: M edicare Annual Wellness Visit: Type of Visit: S ubsequent Annual Wellness Visit (SAWV).? Visual Acuity: N /A. Other Providers of Care: C are Team reviewed with patient: Y es, and updates made in [place] [facility] of Care Physical Activity: D o you exercise regularly? Y es T ype of exercise: _ __ F requency: _ __ Nutrition/Diet: O n a typical day, how many servings of fruits and vegetables do you consume? 0 I n a typical week, how many servings of fried or high fat (such as cheese, fatty meat) do you consume? 0 I n a typical week, how many servings of high fiber or whole grain foods do you consume? 0 Seat Belt: D o you always use your seat belt in your car??Yes A re you having difficulties driving your car??No C an you get to places out of walking distance without help? Y es Dental: H ow would you describe the condition of your mouth and teeth, including any false teeth or dentures? E xcellent Medication List Follow-Up: D uring the past four weeks, how much bodily pain do you have? N o pain D o you have a current opioid prescription??No Self Assessment of Health: H ow would you rate your overall health the past four weeks? E xcellent H ow confident are you that you can control and manage most of your health problems? V gilda confident H ow have things been going for you during the past four weeks? V gilda well; could hardly be better D uring the past four weeks, was someone available to help you if you needed and wanted help? Y es, as much as I wanted (Example: if you felt nervous, lonely, or blue; got sick and had to stay in bed; needed someone to talk to; help with daily chores; or needed help just taking care of yourself) D o you have any sexual problems? N o D o you have any troubles eating well? N o D o you have any problems with tiredness or fatigue? N o H ave you noticed any hearing difficulties??No Sun Exposure: D o you protect yourself from over exposure to the sun when outdoors? Y es Mental Wellness: D uring the past four weeks, how much have you been bothered by emotional problems such as feeling anxious, depressed, irritable, sad, or downhearted and blue? N ot at all D uring the past four weeks, has your physical and emotional health limited your social activities with family, friends, neighbors, or groups??Not at all Functional Ability and Safety Screening: D o you need assistance with any of the following? Select all that apply. N one D oes your home have rugs in the hallway, lack grab bars in the bathroom, lack handrails on the stairs or have poor lighting? N o D o you feel unsteady and/or dizzy when standing or walking? N o D o you have smoke detectors in your home and routinely change the batteries? Y es D o you have a fire extinguisher and know how to use it properly? Y es D o you have any problems with your living situation, food, transportation, utilities, or safety? N o Cognitive Screening: H ave you experienced any memory issues or problems with thinking? N o H ave your family members, friends, caretakers, or others raised any concerns? N o D o you get confused or easily distracted more than you used to? N o H as your ability to concentrate seem to have declined recently? N o O verall Cognitive Status I ntact End of Life Planning: D o you have a living will? Y es D o you have a Durable Power of Frame Stripper? Y es W ould you like to discuss this topic today??Yes SDOH A gree to complete Social Determinants of Health questionnaire Y es W ithin the past 12 months, did you worry that your food would run out before you got money to buy more? N o W ithin the past 12 months, did the food you bought just not last and you didn't have money to buy more? N o W ithin the past 12 months, have you ever stayed: outside, in a car, in a a tent, in an overnight long-term, or temporarily in someone else's home??No A re you worried about losing your housing??No W ithin the past 12 months, have you been able to get utilities (heat, electricity) when it was really needed? N o W ithin the past 12 months, has a lack of transportation kept you from medical appointments or from doing things needed for daily living? N o D o you feel physically or emotionally unsafe where you currently live? N o W ould you like help with any of these needs that you have identified? N o * Medical History: D epression, GERD (gastroesophageal reflux disease), Chronic kidney disease (CKD), stage III (moderate), IBS (irritable bowel syndrome), Memory impairment, Hyperlipidemia, Esophageal diverticulum, acquired, Esophageal stricture. * Surgical History: D iverticulum esophagus , Polyp removal from cervix . * Family History: F ather: , prostate cancer, diagnosed with Other malignant neoplasm of unspecified site, Unspecified essential hypertension, Unspecified heart disease. M other: , depression. Brother(s): alive. S [...] BY MOUTH AT BEDTIME Oral , Taking Boost(Nutritional Supplements) - Liquid as directed Orally , Taking lamoTRIgine 200 MG Tablet TAKE [...] FOR PAIN AND FOR INFLAMMATION , Taking Omeprazole 40 MG Capsule Delayed Release 1 capsule 30 minutes before morning meal Orally BID , Taking Simvastatin 20 MG Tablet 1 tablet in the evening Orally Once a day , Taking Vitamin D (Cholecalciferol) 50 MCG (1999) Capsule 1 capsule Orally Once a day , Medication List reviewed and reconciled with the patient * Allergies: E todolac: vomiting, Aricept: vomiting. Objective: * Vitals: W t:125.4lbs, Ht: 63 in, BP:104/60mm Hg, BMI:22.21Index, Ht-cm: 160.02 cm, Wt-k.88 kg. Assessment: * Assessment: 1. E lisaunter for Medicare annual wellness exam - Z00.00 (Primary) patient presents to the [facility] for a subsequent medicare wellness appointment, patient completed a vision test and can read at 20/13 with both eyes and follows regularly with her eye dr, anxiety, depression and safety screenings were completed without concerns s he also completed a memory test and scored a 30/30. patient has no issues with her memory in daily life reported from patient. patient is due for a dexa scan and routine labs a toldof 30 mintues was spent with the patient Plan: * Treatment: * Procedure Codes: G 0439 ANNUAL WELLNESS, SUBSEQ * Preventive Medicine: Screenings/Counseling: F ALL RISK SCREENING Fall Risk Assessment: N o falls in the past year Are you afraid of falling? N o * * Electronic signature of Raeann Willingham NP, IMPORT EXPORT CLERK.SPORTS BETTING MANAGER.[id number] on 06/06/2025 at 10:23 AM EDT Sign off status: Pending Visit Status: Karen COLBY (Check Out) * Provider: Leigh Abbott ([facility]), SPORTS BETTING MANAGER Date: 06/04/2025 Generated for [facility] monster/Georgina/eTransmitting on: 06/06/2025 10:23 AM EDT History and Physical Notes * HPI (History of Present Illness) Category Sub-Category Detail Notes Category Not es Medicare Annual Wellness Visit Type of Visit: Subsequent Annual Wellness Visit (SAWV) Cognitive Screening: Have you experience d any memory issues or problems with thinking?: No Have your family members, fr iends, caretakers, or others raised any concerns?: No Do you get confused or easily distracted more than you used to?: No Has your ability to concentrate seem to have declined recently?: No Overall Cognitive Status: Intact Self Assessment of Health: How would you rate your overall health the past four weeks?: Excellent How confident are you that y ou can control and manage most of your health problems?: Very confident How have things been going f or you during the past four weeks?: Very well; could hardly be better During the past four weeks, was someone available to help you if you needed and wanted help?: Yes, as much as I wanted (Example: if you felt nervous, lonely, o r blue; got sick and had to stay in bed; needed someone to talk to; help with daily chores; or needed help just taking care of yourself) Do you have any sexual problems?: No Do you have any troubles eating well?: N o Do you have any problems wit h tiredness or fatigue?: No Have you noticed any hearing difficulties?: No Physical Activity: Do you exercise regularly?: Y es Type of exercise:: ___ Frequency:: ___ Functional Ability and Safety Screening: Do you need assistance with any of the following? Select all that apply.: None Does your home have rugs in the hallway, lack grab bars in the bathroom, lack handrails on the stairs or have poor lighting?: No Do you feel unsteady and/or dizzy when s tanding or walking?: No Do you have smoke detectors in your home and routinely change the batteries?: Yes Do you have a fire extinguisher and know how to use it properly?: Yes Do you have any problems wit h your living situation, food, transportation, utilities, or safety?: No Visual Acuity: N/A Nutrition/Diet: On a typical day, ho w many servings of fruits and vegetables do you consume?: 0 In a typical week, how many servings of fried or high fat (such as cheese, fatty meat) do you consume?: 0 In a typical week, how many servings of high fiber or whole grain foods do you consume?: 0 Seat Belt: Do you always use your seat belt in your car?: Yes Are you having difficulties driving your car?: No Can you get to places out of walking dis tance without help?: Yes Dental: How would you descri be the condition of your mouth and teeth, including any false teeth or dentures?: Excellent Medication List Follow-Up: During the four weeks, how much bodily pain do you have?: No pain Do you have a current opioid prescriptio n?: No Mental Wellness: During the past four weeks, how much have you been bothered by emotional problems such as feeling anxious, depressed, irritable, sad, or downhearted and blue?: Not at all During the past four weeks, has your physical and emotional health limited your social activities with family, friends, neighbors, or groups?: Not at all Sun Exposure: Do you protect yours elf from over exposure to the sun when outdoors?: Yes End of Life Planning: Do you have a living will? : Yes Do you have a Durable Power of Frame Stripper? : Yes Would you like to discuss this topic tod ay?: Yes Other Providers of Care: Care Team steff pepe with patient:: Yes, and updates made in [place] [facility] of Care SDNE Agree to complete [facility] Determinants of Health questionnaire: Yes Within the past 12 months, did you worry that your food would run out before you got money to buy more?: No Within the past 12 months, did the food you bought just not last and you didn't have money to buy more?: No Within the past 12 months, have you ever stayed: outside, in a car, in a a tent, in an overnight long-term, or temporarily in someone else's home?: No Are you worried about losing your housing?: No Within the past 12 months, have you been able to get utilities (heat, electricity) when it was really needed?: No Within the past 12 months, has a lack of transportation kept you from medical appointments or from doing things needed for daily living?: No Do you feel physically or emotionally unsafe where you currently live?: No Would you like help with any of these needs that you have identified?: No
--- OUTSIDE RECORDS SUMMARY | 2025-06-06 10:23 | XMS_ITS | Clinical Summary ---
Author Organization [facility] Address [address] [place] [address] Care Team Providers Care Leather Stitcher Name Role Phone KiraKavithaMacy Duarte APRN-PERCUSSION WELDING MACHINE OPERATOR Unavailable Gene Abbott MD Primary Care Provider [phone] Allergies Active Allergy Reactions Criticality Noted Date Comments Etodolac 03/04/2023 Lactobacillus 03/04/2023 Medications latanoprost (Xalatan) 0.005 % ophthalmic solution Administer 1 drop into both eyes at bedtime 2 Active levothyroxine (Synthroid, Levoxyl) 50 MCG tablet Take 50 mcg by mouth in the morning. Take before meals. 3 Active metoprolol tartrate (Lopressor) 25 MG tablet Take 25 mg by mouth in the morning and 25 mg before bedtime. 3 Active naproxen (Naprosyn) 500 MG tablet Take 500 mg by mouth in the morning. 3 Active omeprazole (PriLOSEC) [address] capsule Take 40 mg by mouth in the morning and 40 mg in the evening. Take before meals. Active simvastatin (Zocor) 20 MG tablet Take 20 mg by mouth at bedtime 3 Active cholecalciferol (Vitamin D-3) 25 MCG (1000 UT) tablet Take 1,000 Units by mouth Daily Patient taking 1 tab po daily Active famotidine (Pepcid) 20 MG tablet Take 20 mg by mouth in the morning and 20 mg before bedtime. Active amitriptyline (Elavil) 50 MG tabletIndicatio ns:Bipolar 2 disorder (HCC) Take 1 tablet (50 mg) by mouth at bedtime 90 tablet 5 Active lamoTRIgine (LaMICtal) 150 MG tabletIndicatio ns:Bipolar 2 disorder (HCC) Take 1 tablet (150 mg) by mouth Daily 90 tablet 5 06/18/20 25 Active ALPRAZolam (Xanax) 0.25 MG tabletIndicatio ns:Anxiety May take 1 daily prn severe anxiety 30 tablet 5 Active Active Problems Problem Noted Date Diagnosed Date Depression 03/13/2024 Insomnia 03/13/2024 Bipolar 2 disorder 03/04/2023 Anxiety 03/04/2023 Encounters Date Type Department Care Team Description 03/20/2025 11:30 AM EDT Office Visit [facility] [address] [facility] [address] [place] [address] Macy Austin, COMMITTEE MEMBER-PERCUSSION WELDING MACHINE OPERATOR Bipolar 2 disorder (HCC); Anxiety 03/20/2025 Bamboo flowsheet [facility] [address] [facility] [address] [place] [address] Macy Austin COMMITTEE MEMBER-PERCUSSION WELDING MACHINE OPERATOR 03/20/2025 Travel from Last 3 Months Family History Medical History Relation Name Comments Mental illness Brother Anxiety disorder Father Depression Father Heart attack Father Kidney disease Father Anxiety disorder Mother Colon cancer Mother Depression Mother Glaucoma Mother Mental illness Sister Relation Name Status Comments Brother Father Mother Sister Social History Tobacco Use Types Packs/Day Years Used Date Smoking Tobacco: Never Smokeless Tobacco: Never Tobacco Cessation:Counseling Given: Not Answered Alcohol Use Standard Drinks/Week Comments Not Currently 0 (1 standard drink = 0.6 oz pur e alcohol) Caffine: occassional tea PHQ-2 Answer Date Recorded Patient Health Questionnaire-2 Score 0 12/19/2024 Education Answer Date Recorded What is the highest level of school you have completed or the highest degree you have received? High school graduate 08/20/2024 Comments Unknown Sex and Gender Information Value Date Recorded Sex Assigned at Not on file Legal Sex Female 7:11 PM EDT Gender Identity Not on file Sexual Orientation Not on file Occupation Industry Job Start Date Job End Date Not on file Not on file Not on file Not on file Last Filed Vital Signs Vital Sign Reading Time Taken Comments Blood Pressure 138/82 03/20/2025 11:18 AM EDT Pulse 77 03/20/2025 11:18 AM EDT Temperature - - Respiratory Rate - - Oxygen Saturation - - Inhaled Oxygen Concentration - - Weight 57.2 kg (126 lb) 03/20/2025 11:18 AM EDT Height 161.3 cm (5' 3.5 ) 02/08/2023 12:00 PM ED T Body Mass Index 21.97 02/08/2023 12:00 PM EDT Plan of Treatment Upcoming Encounters Date Type Department Care Team (Late st Contact Info) Description 06/26/2025 1:00 PM EDT Office Visit [facility] [address] [facility] [address] [place] [address] Macy Austin, COMMITTEE MEMBER-PERCUSSION WELDING MACHINE OPERATOR 112 [facility] [address] [place] [address] Health Maintenance Due Date Last Done Comments Influenza Vaccine (#1) 2025 , 10/21/2023, 07/01/2022, Additional history exists Pneumococcal Vaccine: 65+ Years Completed 07/25/2018, 09/06/2017, 07/13/2017, Additional history exists Insurance [facility]ICARE [facility] Care Teams Leather Stitcher Relationship Specialty Start Date End Date Gene Abbott MD [address] [place] [address] PCP - General Family Medicine 03/31/23 Macy Austin, COMMITTEE MEMBER-PERCUSSION WELDING MACHINE OPERATOR 112 [facility] [address] [place] [address] Nurse Practitioner Behavioral Health 03/31/23
--- OUTSIDE RECORDS SUMMARY | 2025-06-06 10:23 | XMS_ITS | Encounter Summary ---
Author Organization [facility] tem Address [id number] [address] [place] [address] Care Team Providers Care Dry Primer Powder Blender Name Role Phone Bridgett Abbott Vu TRAILER RENTAL CLERK-HOP STRAINER Primary Care Provider Encounter Details Date Type Department Care Team (Late st Contact Info) Description 03/18/2022 Telephone [facility] [address] [place] [address] Elsa Ng RMA Social History Tobacco Use Types Packs/Day Years Used Date Smoking Tobacco: Never Smokeless Tobacco: Never Alcohol Use Standard Drinks/Week Comments Not Asked 0 (1 standard drink = 0.6 oz pur e alcohol) socially Childcare Answer Date Recorded Childcare Unknown 04/03/2019 Employment Answer Date Recorded Employment Unknown 04/03/2019 Comments Unknown Sex and Gender Information Value Date Recorded Sex Assigned at Not on file Legal Sex Female 12:14 PM EDT Gender Identity Female 03/30/2022 3:04 PM EDT Sexual Orientation Not on file COVID-19 Exposure Response Date Recorded In the last 10 days, have yo u been in contact with someone who was confirmed or suspected to have Coronavirus/COVID-19? No / Unsure 02/21/2022 2:01 PM EDT documented as of this encounter Miscellaneous Notes * Telephone Encounter - CHRIS Lin - 03/18/2022 12:31 PM EDT Ilana called into the office saying she needed a re-fill of Carafate. She is going to see Dr. Kelly the first part of March. So a verbal re-fill was given to Edi GilbertLisa @ the pharmacy for 2 weeks of tablets until she can be seen by Dr. Ngo. documented in this encounter Plan of Treatment Not on file documented as of this encounter Visit Diagnoses Not on filedocumented in this encounter Care Teams Dry Primer Powder Blender Relationship Specialty Start Date End Date Bridgett Abbott, ISHAN-HOP STRAINER [address] [place] [address] PCP - General Family Medicine 02/21/22 documented as of this encounter
--- OUTSIDE RECORDS SUMMARY | 2025-06-06 10:23 | XMS_ITS | Encounter Summary ---
Author Organization [facility] Address [address] [place] [address] Care Team Providers Care Flatwork Presser Name Role Phone Macy Austin IRRIGATION EQUIPMENT INSTALLER-STONEMASON SUPERVISOR Unavailable Gene Abbott MD Primary Care Provider [phone] Reason for Visit * Reason Comments Med Refill Encounter Details Date Type Department Care Team (Late Contact Info) Description 01/09/2025 Refill [facility] [address] [facility] [address] [place] [address] Macy Austin, IRRIGATION EQUIPMENT INSTALLER-STONEMASON SUPERVISOR 112 [facility] [address] [place] [address] Anxiety Social History Tobacco Use Types Packs/Day Years Used Date Smoking Tobacco: Never Smokeless Tobacco: Never Alcohol Use Standard Drinks/Week Comments Not Currently [...] file Not on file Not on file documented as of this encounter Plan of Treatment Upcoming Encounters Date Type Department Care Team (Late Contact Info) Description 06/26/2025 1:00 PM EDT Office Visit [facility] 112 [facility] [address] [place] [address] Macy Austin, IRRIGATION EQUIPMENT INSTALLER-STONEMASON SUPERVISOR 112 [facility] [address] [place] [address] documented as of this encounter Visit Diagnoses Diagnosis Anxiety Anxiety state, unspecified documented in this encounter Additional Health Concerns Assessment Noted Time PHQ-9 Depression Total Score: 5 12/19/19 25 11:38 AM EST documented as of this encounter Care Teams Flatwork Presser Relationship Specialty Start Date End Date Gene Abbott MD [address] [place] [address] PCP - General Family Medicine 03/31/23 Macy Austin, IRRIGATION EQUIPMENT INSTALLER-STONEMASON SUPERVISOR 112 [facility] [address] [place] [address] Nurse Practitioner Behavioral Health 03/31/23 documented as of this encounter
--- OUTSIDE RECORDS SUMMARY | 2025-06-06 10:23 | XMS_ITS | Encounter Summary ---
Author Organization [facility] tem Address [facility] [place] [facility]-[id number] [address] [place] [address] Care Team Providers Care Internet Systems Administrator Name Role Phone Bridgett Abbott [employer] Primary Care Provider Reason for Referral * Gastroenterology (Routine) - Closed Specialty Diagnoses / Procedures Referred By Contac t Referred To Contact Diagnoses Other dysphagia Procedures EGD Juan Grijalva MD [address] [place] [address], [address] [place] [id number] Phone: tel: fax: Referral ID Status Reason Start Date Expiration Date Visits Re quested Visits Authorized [id number] Closed 05/12/2022 05/12/2023 1 1 Encounter Details Date Type Department Care Team (Late st Contact Info) Description 05/12/2022 Telephone [facility] [address] [place] [address] [place] [phone] Rosalind Zapata RMA Social History Tobacco Use Types Packs/Day Years Used Date Smoking Tobacco: Never Smokeless Tobacco: Never Alcohol Use Standard Drinks/Week Comments Yes 0 (1 standard drink = 0.6 oz [...] Exposure Response Date Recorded In the last month, have you been in contact with someone who was confirmed or suspected to have Coronavirus / COVID-19? No / Unsure 05/05/2022 12:04 PM EDT documented as of this encounter Miscellaneous Notes * Telephone Encounter - CHRIS Arroyo - 05/12/2022 3:55 PM EDT Please schedule patient for following procedure with Dr Grijalva . Chart updated with meds, allergies and insurance. Procedure: EGD with dil with plans to dilate beyond 15 mm should be repeated 3 weeks after EGD done05/05/22. Diagnosis: dyspahgia Sedation: , EITHER SEDATION/FIRST AVAILABLE BMI:23.21 Location: [facility] ASA: 2 (If mod sed only case, put N/A) Clearance: N/A or Given to Rosalind for A comprehensive nursing assessment and chart review was completed by (RN or MA) at time of phone call. Clinical review done and information provided is subject to change after chart reviewed by provider or BASS GUITAR TEACHER. * Telephone Encounter - Bren Chan - 05/12/2022 3:55 PM EDT 05/13 Called patient and scheduled EGD with dilation at [facility] with Dr. Grijalva on 05/31/22 at 12:30pm. Prep instructions were mailed to the patient's home address. Patient is vaccinated for covid with both boosters. jm documented in this encounter Plan of Treatment Scheduled Orders Name Type Priority Associated Diagnoses Orde r Schedule EGD GI Routine Other dysphagia 1 Occurrences starting 05/12/2022 until 05/12/2023 documented as of this encounter Visit Diagnoses Diagnosis Other dysphagia- Primary documented in this encounter Care Teams Internet Systems Administrator Relationship Specialty Start Date End Date Bridgett Abbott, [employer] SUPER[employer] [address] [facility], [place] [id number] PCP - General Family Medicine 02/21/22 documented as of this encounter
--- OUTSIDE RECORDS SUMMARY | 2025-06-06 10:23 | XMS_ITS | Patient Health Record ---
Author Organization [facility] in [place] Address [address] [place] [address] Care Team Providers Care Down Filler Name Role Phone Bridgett Abbott Primary Care Provider [phone] Allergies Allergen (clinical drug ingredient) Drug/Non Drug Allergy documented on EMR Reaction Allergy Type Onset Date Status donepezil Aricept vomiting Drug Allergy Active etodolac Etodolac vomiting Drug Allergy Active Results Component Value Reference Range Notes UA (Urinalysis, Dipstix only - w/o micro) (Not yet reviewed by provider) Interpretation: Performing Lab: Notes/Report: COLOR yellow Yellow - Ashley - CLARITY cloudy Clear - Clear GLUCOSE - 0 - 133 MG/DL BILIRUBIN + NEG - NEG MG/DL SPECIFIC GRAVITY 1.015 1.001 - 1.035 KETONES + NEG - NEG MG/DL BLOOD, UR large PH, UR 6 5 - 9 UROBILNOGEN 1 0.2 - 1 MG/DL NITRITE + NEG - NEG ESTERASE (TUAN) ++ NEG - NEG MG/DL UA RANDOM W or MICROSCOPIC Reviewed date:01/17/2025 02:49:10 PM Interpretation: Performing Lab: Notes/Report: [facility] , Color Urine YELLOW YELLOW Clarity Urine CLEAR CLEAR Specific [place] Urine <=1.005 1.005-1.025 pH Urine 6.0 5.0-9.0 Protein Urine NEGATIVE NEG/TRACE mg/dL Glucose Urine UA NEGATIVE NEGATIVE mg/dL Bilirubin Urine NEGATIVE NEGATIVE Ketones Urine NEGATIVE NEGATIVE mg/dL Blood Urine SMALL NEGATIVE Nitrite Urine POSITIVE NEGATIVE Urobilinogen Urine 0.2 0.2-1.0 EU/dL Leukocyte Esterase Urine LARGE NEGATIVE WBC Urine >100 NONE SEEN #/HPF RBC Urine 10-20 0-2 #/HPF Bacteria Urine LARGE NONE SEEN #/HPF Mucus Urine TRACE NONE SEEN Squamous Epithelial Cell Urine MODERATE NONE/RARE #/LPF Transitional Epi Cells Urine RARE NONE SEEN #/LPF Crystals Seen? None Seen None Seen #/HPF Cast Seen? NONE SEEN NONE SEEN #/LPF Urine Culture Indicated NO Performing Lab: see note ML - [facility] LB Urine Culture - FR Reviewed date:01/17/2025 02:51:29 PM Interpretation: Performing Lab: Notes/Report: [facility] , Urine Culture - [facility] See Below For Report Organism: 1.1 Urine Culture - FR O:ESCCOL Urine Culture - FR Isolated Antibiotic Interpretation TONJA Status [place] Count Testing performed at [facility] Urine Culture - [place] [address] Organism: 1.1 Urine Culture - FR O:ESCCOL Urine Culture - FR Isolated Antibiotic Interpretation TONJA Status [place] Count Testing performed at [facility] Urine Culture - FR See Below For Report Organism: 1.1 Urine Culture - FR O:ESCCOL Urine Culture - FR Isolated Antibiotic Interpretation TONJA Status [place] Count Testing performed at [facility] Urine Culture - FR See Below For Report Organism: 1.1 Urine Culture - FR O:ESCCOL Urine Culture - FR Isolated Antibiotic Interpretation TONJA Status [place] Count Testing performed at [facility] Urine Culture - FR >100,000 Organism: 1.1 Urine Culture - FR O:ESCCOL Urine Culture - FR Isolated Antibiotic Interpretation TONJA Status [place] Count Testing performed at [facility] Urine Culture - FR See Below For Report Organism: 1.1 Urine Culture - FR O:ESCCOL Urine Culture - [facility] Isolated Antibiotic Interpretation TONJA Status [place] Count Testing performed at [facility] Urine Culture - FR Amikacin S F Organism: 1.1 Urine Culture - FR O:ESCCOL Urine Culture - FR Isolated Antibiotic Interpretation TONJA Status [place] Count Testing performed at [facility] Urine Culture - FR Amoxicillin/Clavula roney e S F Organism: 1.1 Urine Culture - FR O:ESCCOL Urine Culture - FR Isolated Antibiotic Interpretation TONJA Status [place] Count Testing performed at [facility] Urine Culture - FR Ampicillin R F Organism: 1.1 Urine Culture - FR O:ESCCOL Urine Culture - FR Isolated Antibiotic Interpretation TONJA Status [place] Count Testing performed at [facility] Urine Culture - [facility] Aztreonam S F Organism: 1.1 Urine Culture - FR O:ESCCOL Urine Culture - FR Isolated Antibiotic Interpretation TONJA Status [place] Count Testing performed at [facility] Urine Culture - FR Ceftazidime S F Organism: 1.1 Urine Culture - FR O:ESCCOL Urine Culture - FR Isolated Antibiotic Interpretation TONJA Status [place] Count Testing performed at [facility] Urine Culture - FR Ceftazidime/Avibact am S F Organism: 1.1 Urine Culture - [facility] O:ESCCOL Urine Culture - FR Isolated Antibiotic Interpretation TONJA Status [place] Count Testing performed at [facility] Urine Culture - [facility] Ceftolozane/Tazobac cain S F Organism: 1.1 Urine Culture - FR O:ESCCOL Urine Culture - FR Isolated Antibiotic Interpretation TONJA Status [place] Count Testing performed at [facility] Urine Culture - [facility] Ciprofloxacin S F Organism: 1.1 Urine Culture - FR O:ESCCOL Urine Culture - FR Isolated Antibiotic Interpretation TONJA Status [place] Count Testing performed at [facility] Urine Culture - [facility] Ertapenem S F Organism: 1.1 Urine Culture - [facility] O:ESCCOL Urine Culture - FR Isolated Antibiotic Interpretation TONJA Status [place] Count Testing performed at [facility] Urine Culture - [facility] Gentamicin S F Organism: 1.1 Urine Culture - [facility] O:ESCCOL Urine Culture - FR Isolated Antibiotic Interpretation TONJA Status [place] Count Testing performed at [facility] Urine Culture - [facility] Levofloxacin S F Organism: 1.1 Urine Culture - FR O:ESCCOL Urine Culture - FR Isolated Antibiotic Interpretation TONJA Status [place] Count Testing performed at [facility] Urine Culture - [facility] Meropenem S F Organism: 1.1 Urine Culture - FR O:ESCCOL Urine Culture - FR Isolated Antibiotic Interpretation TONJA Status [place] Count Testing performed at [facility] Urine Culture - [facility] Meropenem/Vaborbact am S F Organism: 1.1 Urine Culture - FR O:ESCCOL Urine Culture - FR Isolated Antibiotic Interpretation TONJA Status [place] Count Testing performed at [facility] Urine Culture - [facility] Nitrofurantoin S F Organism: 1.1 Urine Culture - FR O:ESCCOL Urine Culture - FR Isolated Antibiotic Interpretation TONJA Status [place] Count Testing performed at [facility] Urine Culture - FR Tetracycline R F Organism: 1.1 Urine Culture - FR O:ESCCOL Urine Culture - FR Isolated Antibiotic Interpretation TONJA Status [place] Count Testing performed at [facility] Urine Culture - FR Tigecycline S F Organism: 1.1 Urine Culture - FR O:ESCCOL Urine Culture - FR Isolated Antibiotic Interpretation TONJA Status [place] Count Testing performed at [facility] Urine Culture - FR Tobramycin S F Organism: 1.1 Urine Culture - FR O:ESCCOL Urine Culture - FR Isolated Antibiotic Interpretation TONJA Status [place] Count Testing performed at [facility] Urine Culture - [facility] Ampicillin/Sulbacta m I F Organism: 1.1 Urine Culture - FR O:ESCCOL Urine Culture - FR Isolated Antibiotic Interpretation TONJA Status [place] Count Testing performed at [facility] Urine Culture - [facility] Cefazolin S F Organism: 1.1 Urine Culture - FR O:ESCCOL Urine Culture - FR Isolated Antibiotic Interpretation TONJA Status [place] Count Testing performed at [facility] Urine Culture - [facility] Cefepime S F Organism: 1.1 Urine Culture - [facility] O:ESCCOL Urine Culture - FR Isolated Antibiotic Interpretation TONJA Status [place] Count Testing performed at [facility] Urine Culture - [facility] Ceftriaxone S F Organism: 1.1 Urine Culture - FR O:ESCCOL Urine Culture - [facility] Isolated Antibiotic Interpretation TONJA Status [place] Count Testing performed at [facility] Urine Culture - [facility] Cefuroxime S F Organism: 1.1 Urine Culture - FR O:ESCCOL Urine Culture - FR Isolated Antibiotic Interpretation TONJA Status [place] Count Testing performed at [facility] Urine Culture - [facility] Piperacillin/Tazoba cta m S F Organism: 1.1 Urine Culture - FR O:ESCCOL Urine Culture - FR Isolated Antibiotic Interpretation TONJA Status [place] Count Testing performed at [facility] Urine Culture - [facility] Trimethoprim/Sulfa S F Organism: 1.1 Urine Culture - FR O:ESCCOL Urine Culture - FR Isolated Antibiotic Interpretation TONJA Status [place] Count Testing performed at [facility] Performing Lab: see note ML - [facility] SEE REPORT - Technical Report Writer Id information not found for OBX-specific radio producer legend VITAMIN D 25 [place] Reviewed date:11/22/2024 09:22:25 AM Interpretation: Performing Lab: Notes/Report: [facility] , Vitamin D 75.4 30-100 ng/mL Vit D sufficient >100 ng/mL Potential Toxicity 20-<30 ng/mL Vit D insufficient <20 ng/mL Vit D deficient Performing Lab: see note ML - [facility] LB TSH Reviewed date:11/22/2024 09:22:25 AM Interpretation: Performing Lab: Notes/Report: [facility] , Thyroid Stimulating Hormone 2.887 0.358-3.740 uIU/mL Performing Lab: see note ML - [facility] LB T4 Reviewed date:11/22/2024 09:22:25 AM Interpretation: Performing Lab: Notes/Report: [facility] , T4 Thyroxine 10.80 4.80-13.90 ug/dL Performing Lab: see note ML - [facility] LB PROF 14(COMP METB) Reviewed date:11/22/2024 09:22:25 AM Interpretation: Performing Lab: Notes/Report: [facility] , Sodium 137 136-145 mmol/L Potassium 4.0 3.5-5.1 mmol/L Chloride 102 98-107 mmol/L Carbon Dioxide 28.5 21.0-32.0 mmol/L Anion Gap 10.5 Glucose 83 74-106 mg/dL Blood Urea Nitrogen 18.0 7.0-18.0 mg/dL Creatinine 1.31 0.55-1.02 mg/dL Estimated GFR ( Callie 47 >=60 mL/min/1.73m 2 Estimated GFR (Non- Sejal 39 >=60 mL/min/1.73m 2 BUN Creatinine Ratio 13.7 Calcium 9.2 8.5-10.1 mg/dL Bilirubin Total 0.5 0.2-1.0 mg/dL Aspartate Amino Transferase 20 15-37 U/L Alanine Aminotransferase 15 14-59 U/L Alkaline Phosphatase 79 46-116 U/L Total Protein 7.5 6.4-8.2 g/dL Albumin Level 3.8 3.4-5.0 g/dL Globulin 3.7 Albumin Globulin Ratio 1.0 Performing Lab: see note ML - [facility] LB LIPID PROFILE Reviewed date:11/22/2024 09:22:25 AM Interpretation: Performing Lab: Notes/Report: [facility] , Triglycerides 153 <=150 mg/dL Cholesterol 204 <=200 mg/dL HDL Cholesterol 67 40-60 mg/dL <40 mg/dl - HIGH CARDIOVASCULAR RISK > or =60 mg/dl - LOW CARDIOVASCULAR RISK LDL Cholesterol Calculated 107.0 >190 mg/dl VERY HIGH <100 mg/dl OPTIMAL 130-159 mg/dl BORDERLINE HIGH 160-189 mg/dl HIGH 100-129 mg/dl NEAR OR ABOVE OPTIMAL VLDL CHOLESTEROL 30.6 Chol HDL Ratio 3.0 3.3 - 4.4 LOW RISK >11.0 HIGH RISK 4.4 - 7.1 AVERAGE RISK 7.1 - 11.0 MODERATE RISK Performing Lab: see note ML - [facility] IRON Reviewed date:11/22/2024 09:22:25 AM Interpretation: Performing Lab: Notes/Report: [facility] , Iron 92.0 50.0-170.0 ug/dL Performing Lab: see note ML - [facility] INSULIN Reviewed date:11/22/2024 09:22:25 AM Interpretation: Performing Lab: Notes/Report: [facility] , Insulin 8.8 2.6-24.9 uIU/mL [address] [place], [place] [id number] Sharebroker: Enrique Feliciano PhD, Phone: [phone] Performed at: [facility] Performing Lab: see note - [facility] LB GLYCOHEMOGLOBIN A1C Reviewed date:11/22/2024 09:22:25 AM Interpretation: Performing Lab: Notes/Report: [facility] , Glycohemoglobin A1C 5.9 4.5-6.2 % ADA THERAPEUTIC TARGET < 7.0 ADA RECOMMENDED LIMIT 4.0 - 6.0 > 7.0 ACTION SUGGESTED Estimated Average Glucose 123 Performing Lab: see note ML - [facility] FREE T3 Reviewed date:11/22/2024 09:22:25 AM Interpretation: Performing Lab: Notes/Report: [facility] , Free T3 1.70 2.18-3.98 pg/mL Performing Lab: see note ML - [facility] LB CBC AUTO DIFF Reviewed date:11/22/2024 09:22:25 AM Interpretation: Performing Lab: Notes/Report: [facility] , White Blood Count 7.1 4.0-11.0 10 3/uL Red Blood Count 4.47 4.20-5.40 10 6/uL Hemoglobin 12.6 12.0-16.0 g/dL Hematocrit 39.2 36.0-48.0 % Mean Corpuscular Volume 87.7 81.0-99.0 fL Mean Corpuscular Hemoglobin 28.2 26.7-34.0 pg Mean Corpuscular HGB Conc 32.1 29.9-35.2 g/dL Red Cell Distribution Width 12.7 11.0-15.0 % Platelet Count 248 150-450 10 3/uL Mean Platelet Volume 10.0 9.5-13.5 fL Neutrophils Percent Auto 56.4 43.0-75.0 % Lymphocytes Percent Auto 30.4 20.5-60.0 % Monocytes Percent Auto 8.6 1.7-12.0 % Eosinophils Percent Auto 3.2 0.9-7.0 % Basophils Percent Auto 1.0 0.2-2.0 % Immature Granulocytes Pct Auto 0.4 0.0-0.5 % Neutrophils Absolute Auto 4.0 1.4-6.5 10 3/uL Lymphocytes Absolute Auto 2.2 1.2-3.8 10 3/uL Monocytes Absolute Auto 0.6 0.3-0.8 10 3/uL Eosinophils Absolute Auto 0.2 0.0-0.7 10 3/uL Basophils Absolute Auto 0.1 0.0-0.1 10 3/uL Immature Granulocytes Abs Auto 0.03 0.00-0.03 10 3/uL Performing Lab: see note ML - [facility] LB COVID-19, Flu A+B IH (Not ye t reviewed by provider) Interpretation: Performing Lab: Notes/Report: COVID - FLU A - FLU B - Control + UA RANDOM W or MICROSCOPIC Reviewed date:02/13/2025 11:59:34 AM Interpretation: Performing Lab: Notes/Report: [facility] , Color Urine LT. YELLOW YELLOW Clarity Urine CLEAR CLEAR Specific [place] Urine 1.015 1.005-1.025 pH Urine 6.0 5.0-9.0 Protein Urine NEGATIVE NEG/TRACE mg/dL Glucose Urine UA NEGATIVE NEGATIVE mg/dL Bilirubin Urine NEGATIVE NEGATIVE Ketones Urine NEGATIVE NEGATIVE mg/dL Blood Urine NEGATIVE NEGATIVE Nitrite Urine NEGATIVE NEGATIVE Urobilinogen Urine 0.2 0.2-1.0 EU/dL Leukocyte Esterase Urine NEGATIVE NEGATIVE WBC Urine 0-2 NONE SEEN #/HPF RBC Urine 0-2 0-2 #/HPF Bacteria Urine NONE SEEN NONE SEEN #/HPF Mucus Urine TRACE NONE SEEN Squamous Epithelial Cell Urine FEW NONE/RARE #/LPF Crystals Seen? None Seen None Seen #/HPF Cast Seen? SEEN NONE SEEN #/LPF Hyaline Casts Urine RARE Urine Culture Indicated NO Performing Lab: see note ML - [facility] LB Urine Culture - [facility] Reviewed date:02/17/2025 01:08:51 PM Interpretation: Performing Lab: Notes/Report: [facility] , Urine Culture - [facility] See Below For Report Urine Culture - [facility] <9,000 colonies/ml mixed Urine Culture - [facility] bacterial skin contaminants Urine Culture - [facility] <9,000 colonies/ml mixed Urine Culture - [facility] 2 Days Urine Culture - [facility] <9,000 colonies/ml mixed Urine Culture - [facility] Urine Culture - [facility] <9,000 colonies/ml mixed [facility]rine Culture - [facility] Urine Culture - [facility] <9,000 colonies/ml mixed Urine Culture - [facility] Testing performed a [facility] Urine Culture - [facility] <9,000 colonies/ml mixed Urine Culture - [facility] [address] [place] [address] Urine Culture - [facility] <9,000 colonies/ml mixed Performing Lab: see note ML - [facility] LB Reason For Referral Reason GERD, esophageal str icture Diagnosis 1 Esophageal stricture (K22.2) Diagnosis 2 GERD (gastroesophage al reflux disease) (K21.9) Referral Organization [facility] Referring Provider First Name Bridgett Referring Provider Last Name Scar Referring Provider Speciality [facility] michelle Referred Provider Juan Grijalva Referred Provider Specialty Gastroentero logy Referral Priority Routine Medications Medication SIG (Take, Route, Frequency, Duration) Notes Start Date End Date Status Acetaminophen 500 MG 1 tablet as needed Orally every evening Active Vitamin D (Cholecalciferol) 50 MCG (1999) 1 capsule Orally Once a day Active Amitriptyline HCl 50 MG TAKE 1 TABLET BY MOUTH AT BEDTIME Oral for 90 Days Active ALPRAZolam 0.25 MG TAKE 1 TABLET BY ONCE DAILY NEEDED FOR ANXIETY Oral for 30 Days Active Omeprazole 40 MG 1 capsule 30 minutes before morning meal Orally BID for 90 days Active Naproxen 500 MG TAKE 1 TABLET BY ALBERTO TH TWICE DAILY NEEDED FOR PAIN AND FOR INFLAMMATION for 30 Active Boost - as directed Orally A ctive Simvastatin 20 MG 1 tablet in the even ing Orally Once a day for 90 days Active lamoTRIgine 200 MG TAKE 1 TABLET BY ALBERTO TH IN THE MORNING Oral for 90 Days Active Metoprolol Tartrate 25 MG Take 1 tablet by mouth twice daily for 90 Active Levothyroxine Sodium 50 MCG Take 1 table t by mouth once daily for 90 Active Social History Tobacco Use: Social History Observation Description Date Details (start date - stop date) Never Smoker NA - NA Tobacco Use/Smoking Question Answer Notes Patient is a nonsmoker Alcohol Screen (Audit-C) Question Answer Notes Did you have a drink containing alcohol in the p ast year? No Points 0 Interpretation Negative AUDIT-C (Standard) Question Answer Notes Did you have a drink containing alcohol in the p ast year? No Points 0 Interpretation Negative Problems Problem Type SNOMED Code ICD Code Onset Dates Problem Status W/U Status Risk Notes Problem [id number] Essential (primary) hypertension (I10) Active confirmed Problem Hyperlipidemia (46067492) Hyperlipidemia (E78.5) Active confirmed Problem Gastroesophageal reflux disease (685472034) GERD (gastroesophageal reflux disease) (K21.9) Active confirmed Problem Vitamin D deficiency (92363246) Vitamin D deficiency (E55.9) Active confirmed Problem Irritable bowel syndrome (50634359) IBS (irritable bowel syndrome) (K58.9) Active confirmed Problem Memory impairment (796600990) Memory impairment (R41.3) Active confirmed Problem Esophageal stricture (99138549) Esophageal stricture (K22.2) Active confirmed Problem Acquired diverticulum of esophagus (07105102) Esophageal diverticulum, acquired (K22.5) Active confirmed Problem Glossodynia (54630076) Tongue burning sensation (K14.6) Active confirmed Problem Chronic kidney disease stage 3 (disorder) (883237964) Chronic kidney disease (CKD), stage III (moderate) (N18.30) Active confirmed Problem Depression (930237290) Depression (F32.A) Active confirmed Vital Signs Temperature 98.2 degrees Fahrenheit 12/13/2024 Blood pressure diastolic 60 mm Hg 06/04/2025 Height 63 in 06/04/2025 Blood pressure systolic 104 mm Hg 06/04/2025 Weight 125.4 lbs 06/04/2025 BMI 22.21 kg/m2 06/04/2025 Encounters Encounter Location Date Provider Diagnosis [facility] [address] [place] [address] 08/26/2024 Bridgett Abbott URI (upper respirato ry infection) J06.9 and Actinic keratosis L57.0 [facility] [address] [place] [address] 12/13/2024 Bridgett Abbott Tongue burning sensation K14.6 ; GERD (gastroesophageal reflux disease) K21.9 and PND (post-nasal drip) R09.82 [facility] [address] [place] [address] 01/14/2025 Bridgett Abbott UTI (urinary tract infection) N39.0 and Cough R05.9 [address] [place] [address] 05/09/2025 Bridgett Abbott GERD (gastroesophage al reflux disease) K21.9 and Esophageal stricture K22.2 [facility] [address] [place] [address] 11/21/2024 Bridgett Abbott Essential (primary) hypertension I10 [facility] [address] [place] [address] 06/04/2025 Bridgett Abbott Encounter for Medica re annual wellness exam Z00.00 [facility] [address] [place] [address] 08/29/2024 Bridgett Abbott [facility] [address] [place] [address] 11/08/2024 Bridgett Abbott Essential (primary) hypertension I10 [facility] [address] [place] [address] 11/22/2024 Bridgett Abbott [facility] [address] [place] [address] 01/14/2025 Bridgett Abbott [facility] [address] [place] [facility] [place] [address] 01/17/2025 Bridgett Scar UTI (urinary tract infection) N39.0 [facility] [address] [place] [place] [address] 02/05/2025 Bridgettjake Figueroamer [facility] [address] [place] [facility] [place] [address] 02/13/2025 Bridgett Abbott [facility] [address] [facility] [place] [address] 06/04/2025 Bridgett Abbott 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 Assessments Encounter Date Diagnosis (ICD Code) Assessment Notes Treatment Notes Treatment Clinical Notes Section Notes 11/21/2024 Essential (primary) hypertension (ICD-10 - I10) BP ok today continue meds 08/26/2024 URI (upper respiratory infection) (ICD-10 - J06.9) continue monitor supportive care COVID and flu negative notify office if not improving 08/26/2024 Actinic keratosis (ICD-10 - L57.0) fu derm for skin check multiple moles, some [place] referral sheet given 12/13/2024 Tongue burning sensation (ICD-10 - K14.6) fu if not improving 12/13/2024 GERD (gastroesophageal reflux disease) (ICD-10 - K21.9) add pepcid daily for week or two see if helps 01/14/2025 UTI (urinary tract infection) (ICD-10 - N39.0) 01/14/2025 Cough (ICD-10 - R05.9) cold sx have improved flu and covid neg treat suspected UTI, if doesnt feel better, fu 05/09/2025 GERD (gastroesophageal reflux disease) (ICD-10 - K21.9) continue omeprazole soft foods, small frequent as advised GI 06/04/2025 Encounter for Medicare annual wellness exam [...] 30 mintues was spent with the patient 11/08/2024 Essential (primary) hypertension (ICD-10 - I10) 01/17/2025 UTI (urinary tract infection) (ICD-10 - N39.0) 06/04/2025 Senile osteopenia (ICD-10 - M85.80) l 05/09/2025 Esophageal stricture (ICD-10 - K22.2) fu arjesh 12/13/2024 PND (post-nasal drip) (ICD-10 - R09.82) try Mucinex otc Plan Of Treatment Pending Test Test Name Order Date CMP (COMPLETE METABOLIC PANEL) 3 UA (URINALYSIS, COMPLETE) 01/14/2025 UA (URINALYSIS, COMPLETE) 01/17/2025 HEMOGLOBIN A1C (GLYCO) 09/04/2023 HEMOGLOBIN A1C (GLYCO) 11/08/2024 IRON, TOTAL 11/08/2024 IRON, TOTAL 09/04/2023 LIPID PANEL (CHOL/TRIG/HDL/LDL) 11/08/19 25 LIPID PANEL (CHOL/TRIG/HDL/LDL) 09/04/20 23 CBC WITH DIFF 09/04/2023 CBC WITH DIFF 11/08/2024 VITAMIN D, 25 LEVEL (TOTAL) 11/08/2024 VITAMIN D, 25 LEVEL (TOTAL) 09/04/2023 Urine Culture 01/17/2025 Urine Culture 01/14/2025 UA (Urinalysis, Dipstix only - w/o micro ) 01/14/2025 Insulin Level 09/04/2023 Insulin Level 11/08/2024 COVID-19, Flu A+B IH 01/14/2025 URINE MICROSCOPIC ONLY 01/17/2025 XR DEXA BONE DENSITY 06/04/2025 THYROID PANEL (T4/TSH/FREE T3) 5 THYROID PANEL (T4/TSH/FREE T3) 3 CMP (COMP MET [place]) w/eGFR CKD-EPI 2024 Insurance Providers Payer Name Payer Address Payer Phone Subscriber Number Group Number Insured Name Patient Relationship to Insured Coverage Start Date Coverage End Date [place]IC[place] [address] [place] [address] [id number] Ilana Elaine Self - patient is the insured 5 [facility] [address] [place] [address] [id number] Ilana Elaine Self - patient is the insured 6 Medical (General) History Medical History History ICD Code Depression F32.A GERD (gastroesophageal reflux disease) K 21.9 Chronic kidney disease (CKD), stage III (moderate) N18.30 IBS (irritable bowel syndrome) K58.9 Memory impairment R41.3 Hyperlipidemia E78.5 Esophageal diverticulum, acquired K22.5 Esophageal stricture K22.2 Surgical History Surgery Date(Month/Year) Diverticulum esophagus Polyp removal from cervix
--- OUTSIDE RECORDS SUMMARY | 2025-06-06 10:23 | XMS_ITS | Clinical Summary ---
Author Organization [facility] tem Address [id number] [address] [place] [address] Care Team Providers Care Stoneworking Belt Sander Name Role Phone Scar Bridgett Womack VANSTONE MACHINE OPERATOR-HAND FINISHER Primary Care Provider Allergies Active Allergy Reactions Criticality Noted Date Comments Budesonide Vomiting 02/21/2022 Etodolac 06/28/2022 Medications ALPRAZolam (XANAX) 0.25 mg tablet TAKE 1 TABLET ORALLY 6-8 HRS NEEDED 30 DAYS 2 Active amitriptyline (ELAVIL) 50 mg tablet TAKE 1 TABLET BY MOUTH EVERY DAY FOR 90 DAYS 2 Active lamoTRIgine (LaMICtal) 200 mg tablet TAKE 1 TABLET BY MOUTH EVERY DAY FOR 90 DAYS 2 Active latanoprost (XALATAN) 0.005 % ophthalmic solution PLACE 1 DROP INTO AFFECTED EYE ONCE A DAY AT BEDTIME 2 Active levothyroxine (SYNTHROID, LEVOTHROID) 50 MCG tablet Take 1 tablet (50 mcg total) by mouth in the morning. 2 Active metoprolol tartrate (LOPRESSOR) 25 mg tablet Take 1 tablet (25 mg total) by mouth in the morning and 1 tablet (25 mg total) before bedtime. 2 Active simvastatin (ZOCOR) 20 mg tablet TAKE 1 TABLET BY MOUTH EVERYDAY AT BEDTIME 2 Active omeprazole (PriLOSEC) 40 mg capsuleIndication s:Acquired diverticulum of esophagus,Esophag eal stricture TAKE 1 CAPSULE BY MOUTH IN THE MORNING BEFORE A MEAL AND 1 IN THE EVENING BEFORE A MEAL 180 capsule 3 Active Active Problems Problem Noted Date Diagnosed Date Esophageal stricture 11/01/2022 Gastroesophageal reflux dise ase with esophagitis without hemorrhage 11/01/2022 Chronic kidney disease 02/21/2022 High cholesterol 02/21/2022 Hypertension 02/21/2022 Encounters Date Type Department Care Team Description 04/01/2025 Refill [facility] [address] [phone] Juan Grijalva MD Acquired diverticulum of esophagus; Esophageal stricture from Last 3 Months Family History Medical History Relation Name Comments Heart disease Father Cancer Maternal Grandmother Colon cancer Maternal Grandmother Cancer Mother Colon cancer Mother Cancer Sister 1 Ovarian cancer Sister 1 Cancer Sister 2 Leukemia Sister 2 Relation Name Status Comments Father Maternal Grandfather Maternal Grandmother Mother Sister 1 Sister 2 Social History Tobacco Use Types Packs/Day Years Used Date Smoking Tobacco: Never Smokeless Tobacco: Never Alcohol Use Standard Drinks/Week Comments Yes 0 (1 standard drink = 0.6 oz pur e alcohol) socially Childcare Answer Date Recorded Childcare Unknown 04/03/2019 Employment Answer Date Recorded Employment Unknown 04/03/2019 Hunger Screening Answer Date Recorded Within the past 12 months we worried whether our food would run out before we got money to buy more. Never True 11/01/2022 Within the past 12 months th e food we bought just didn't last and we didn't have money to get more. Never True 11/01/2022 Comments No Sex and Gender Information Value Date Recorded Sex Assigned at Not on file Legal Sex Female 12:14 PM EDT Gender Identity Female 03/30/2022 3:04 PM EDT Sexual Orientation Not on file Last Filed Vital Signs Vital Sign Reading Time Taken Comments Blood Pressure 140/76 11/01/2022 10:47 AM EST Pulse 61 11/01/2022 10:47 AM EST Temperature 36.8 C (98.2 F) 06/28/2022 7:36 AM EDT Respiratory Rate 22 06/28/2022 8:31 AM EDT Oxygen Saturation 97% 06/28/2022 8:31 AM EDT Inhaled Oxygen Concentration - - Weight 63.2 kg (139 lb 6.4 oz) 11/01/2022 10:47 AM EST Height 160 cm (5' 3 ) 11/01/2022 10:47 AM EST Body Mass Index 24.69 11/01/2022 10:47 AM EST Plan of Treatment Health Maintenance Due Date Last Done Comments Depression Screening 1952 Tobacco Screening 1952 DTaP,Tdap and Td Vaccines (1 - Tdap) 1959 Zoster (Shingles) Vaccine (1 of 2) 1990 Fall Risk Screening 2005 COVID-19 Vaccine (5 - 2023-2 5 season) 2024 03/18/2022, 08/07/2021, 12/07/2020, Additional history exists Influenza Vaccine 06/23/2025 07/01/2022, , 08/19/2020, Additional history exists Medical Devices Not on file Insurance MEDICARE [facility] Care Teams Stoneworking Belt Sander Relationship Specialty Start Date End Date Bridgett Abbott, VANSTONE MACHINE OPERATOR-HAND FINISHER [address] [facility], [place] [phone] PCP - General Family Medicine 02/21/22
--- OUTSIDE RECORDS SUMMARY | 2025-06-06 10:24 | XMS_ITS | Clinical Summary ---
Author Organization [facility] Address [address] [place] [address] Care Team Providers Care Customer Success Representative Name Role Phone Moira Connelly MD Primary Care Provider [phone] Allergies No known active allergies Medications FLUOXETINE 20 mg capsule Take 40 mg by mouth once daily. 05/20/2013 Active LANSOPRAZOLE 30 mg capsule Take 30 mg by mouth once daily. 07/09/2013 Active LEVOTHYROXINE 50 mcg tablet Take 50 mcg by mouth once daily. 07/22/2013 Active LORAZEPAM 0.5 mg Tab 0.25 mg four times daily. 06/06/2013 Active SIMVASTATIN 20 mg tablet Take 20 mg by mouth daily at bedtime. 07/30/2013 Active ZOLPIDEM 10 mg Tab 10 mg daily at bedtime. 07/17/2013 Active SUMAtriptan 50 mg tablet Take 1 tablet by mouth as needed. 0 03/25/2014 Active Benzonatate 200 mg capsule Take 200 mg by mouth twice daily as needed. 04/01/2014 Active clobetasol 0.05 % cream Apply to affected area once daily. 04/01/2014 Active gabapentin (NEURONTIN) 100 mg capsule Take 1 capsule by mouth once daily. 90 capsule 0 08/07/2015 Active Active Problems Problem Noted Date Diagnosed Date Urethritis 08/28/2013 Hyperlipidemia 08/07/2013 Hypothyroid 08/07/2013 Family History Medical History Relation Comments Heart Father Hypertension Father Ovarian cancer Maternal Aunt 2 aunts Colon Cancer Maternal Grandmother Stroke Paternal Grandmother Diabetes Sister Breast Cancer No Family History Relation Status Comments Father Maternal Aunt Maternal Grandmother Paternal Grandmother Sister Social History Tobacco Use Types Packs/Day Years Used Date Smoking Tobacco: Former Smokeless Tobacco: Never Comments:only smoked for 6 m onths in college Alcohol Use Standard Drinks/Week Comments No 0 (1 standard drink = 0.6 oz pur e alcohol) Comments No Sex and Gender Information Value Date Recorded Sex Assigned at Not on file Legal Sex Female 9:09 AM EST Gender Identity Not on file Sexual Orientation Not on file Last Filed Vital Signs Vital Sign Reading Time Taken Comments Blood Pressure 133/58 08/07/2015 1:10 PM EDT Pulse 84 08/07/2015 1:10 PM EDT Temperature 36 C (96.8 F) 08/07/2015 1:10 PM EDT Respiratory Rate 14 07/25/2014 12:48 PM EDT Oxygen Saturation - - Inhaled Oxygen Concentration - - Weight 61.7 kg (136 lb) 08/07/2015 1:10 PM EDT Height 162.6 cm (5' 4 ) 07/25/2014 12:48 PM EDT Body Mass Index 23.34 07/25/2014 12:48 PM EDT Plan of Treatment Health Maintenance Due Date Last Done Comments Anxiety Screening 1958 Depression Screening 1958 DTaP,Tdap,Td Vaccine (1 - Tdap) 1959 Diabetes Screening 1985 Pneumococcal Vaccine: 50+ (1 of 1 - PCV) 1990 Shingrix Vaccine (1 of 2) 1990 Bone Density Screening 2005 RSV Vaccine (1 - 1-dose 75+ series) 2015 Advance Directive Discussion 10/23/2024 Influenza Vaccine (#1) 2025 Insurance [facility] MEDICARE Care Teams Customer Success Representative Relationship Specialty Start Date End Date Moira Connelly MD [address] [place] [address] PCP - General Family Medicine 08/07/13
--- OUTSIDE RECORDS SUMMARY | 2025-06-06 10:24 | XMS_ITS | Encounter Summary ---
Author Organization [facility] [facility] Address [id number] [address] [place] [address] Care Team Providers Care Manager Harbor Name Role Phone Bridgett Abbott AUTO BODY REPAIRER FIBERGLASS-COMPOSITE ASSEMBLER Primary Care Provider Reason for Visit * Reason Comments Med Refill Encounter Details Date Type Department Care Team (Late st Contact Info) Description 04/27/2022 Refill [facility] [address] [place], [place] [phone] Marvin Kelly DO [address] [place] [address] Social History Tobacco Use Types Packs/Day Years [...] suspected to have Coronavirus/COVID-19? No / Unsure 03/30/2022 2:02 PM EDT documented as of this encounter Plan of Treatment Not on file documented as of this encounter Visit Diagnoses Not on filedocumented in this encounter Care Teams Manager Harbor Relationship Specialty Start Date End Date Bridgett Abbott, AUTO BODY REPAIRER FIBERGLASS-COMPOSITE ASSEMBLER [address] [place] [address] PCP - General Family Medicine 02/21/22 documented as of this encounter
--- OUTSIDE RECORDS SUMMARY | 2025-06-06 10:24 | XMS_ITS | Encounter Summary ---
Author Organization [facility] tem Address [id number] [address] [place] [address] Care Team Providers Care Public Health Sanitarian Name Role Phone Bridgett Abbott SKEIN YARD DRIER-MEATCUTTER Primary Care Provider Encounter Details Date Type Department Care Team (Late st Contact Info) Description 05/02/[address] [facility] [address] [place] [phone] Tootie Louie PA-C [address] [place] [id number] Social History Tobacco Use Types Packs/Day Years [...] encounter Miscellaneous Notes * Telephone Encounter - Tootie Louie PA-C - 05/02/2022 4:46 PM EDT Please notify patient Dr. Grijalva would like to proceed with EGD rajesh. Order placed. EGD at [facility] with MAC ASA 2. * Telephone Encounter - Bren Rocio - 05/02/2022 4:46 PM EDT 05/03/22 Called patient and scheduled EGD at [facility] with Dr. Grijalva on 05/05/22 at 1pm. Patient is vaccinated with both covid boosters. Emailed prep instructions to patient's [employer] account. jm documented in this encounter Plan of Treatment Not on file documented as of this encounter Visit Diagnoses Not on filedocumented in this encounter Care Teams Public Health Sanitarian Relationship Specialty Start Date End Date Bridgett Abbott, SKEIN YARD DRIER-MEATCUTTER [address] [facility], [place] [address] PCP - General Family Medicine 02/21/22 documented as of this encounter
--- OUTSIDE RECORDS SUMMARY | 2025-06-06 10:26 | XMS_ITS | CCD ---
Author Organization [facility] Care Team Providers Care Bone Drier Operator Name Role Phone TAL ., DR BRAD Mancia Admitting Unavaila ble GRPERRI ., DR BRAD Mancia Attending Unavaila ble MIGUEL ANGEL, [facility] Primary Care Unavailable GRILLIS ., DR BRAD Mancia Attending Unavaila ble GRDAVIS ., DR BRAD Mancia Consulting Unavaila ble GRILLIVu ., DR BRAD Mancia Admitting Unavaila ble ROSS, [facility] Care Unavailable KENNEDY, DR JENNIE Aguila Consulting Unavailable MUNIRA ., FERNANDO DUDLEY Consulting Unavailjude KRUGER ., DR BURKS Consulting Unavailable KATHERINE NORIEGA Consulting Unavaila ble GRILLIS ., DR BRAD Mancia Admitting Unavaila ble GRILLIS ., DR BRAD Mancia Attending Unavaila ble GRDAVIS ., DR BRAD Mancia Consulting Unavaila jonas MICHELLE, [facility] Primary Care Unavailable AGUBDIMPLE JEAN-CLAUDE Consulting Unavailable GOLDIE KHAN Consulting Unavailable GRILLIS ., DR BRAD Mancia Attending Unavaila ble GRILLIS ., DR BRAD Mancia Admitting Unavaila ble ROSS, [facility] BRIDGETT MICHELLE Admitting Unavailable BRIDGETT MICHELLE Attending Unavailable ABDULLAHIILLIS ., DR BRAD Mancia Attending Unavaila ble GRILLIS ., DR BRAD Mancia Consulting Unavaila ble GRILLIS ., DR BRAD Mancia Admitting Unavaila ble ROSS, [facility] Care Unavailable PERCY, DR ZI Nixon Consulting Unavailable BRIDGETT MICHELLE Consulting Unavailable MIGUEL ANGEL BRIDGETT Primary Care Unavailable BRIDGETT MICHELLE Admitting Unavailable BRIDGETT MICHELLE Attending Unavailable Kira-Nossek CASKET ASSEMBLER-HUMAN RESOURCES TRAINEE, María M Unavailable Gnee Michelle MD Primary Care Provider Miguel Angel OLMSTEAD-COIL TAPER, Bridgett Womack Primary Care Provider Gene Michelle MD Primary Care Provider Miguel Angel GRIMESC, Bridgett Ugarte Attending Provider [phone] Bridgett Michelle Attending Unavailable Bridgett Michelle Admitting Unavailable Bridgett Michelle Attending Unavailable Bridgett Michelle Admitting Unavailable KIRA-NOSSEMARÍA Brower Attending Unavailab le KIRA-NOSMARÍA LEE Attending Unavailab le KIRA-NOSSEMARÍA Brower Attending Unavailab le KIRA-NOSSEMARÍA Brower Attending Unavailab le Miguel Angel CASKET ASSEMBLER-Bridgett TRIVEDI Primary Care Provider Allergies Allergy Classification Reported Allergen(s) Allergy Type Date of Onset Reaction(s) Facility (2 sources) Etodolac Drug Allergy [facility] (11 sources) Etodolac Propensity to adverse reactions 3 [facility] (11 sources) Lactobacillus acidophilus Drug Allergy 3 [facility] (2 sources) Budesonide Drug Allergy 2 Vomiting [facility] (2 sources) Etodolac Drug Allergy 2 [facility] Medications Current Medications Medication Drug Class(es) Dates Sig (Normalized) Sig (Original) ALPRAZolam 0.25 mg oral tablet (20 sources) Benzodiazepine Start: 03-20-2025 ALPRAZolam (Xanax) 0.25 MG tablet Indications: Anxiety May take 1 daily prn severe anxiety 30 tablet 03/20/2025 Active Start: 03-20-2025 ALPRAZolam (Xa nax) 0.25 MG tablet Indications: Anxiety May take 1 daily prn severe anxiety 30 tablet 03/20/2025 Active Start: 10-14-2024 End: 03-20-2025 ALPRAZolam (Xanax) 0.25 MG t ablet Indications: Anxiety Take 1 tablet (0.25 mg) by mouth as needed at bedtime for anxiety 30 tablet 02/10/2025 03/20/2025 Discontinued (Reorder) Start: 05-02-2024 End: 09-19-2024 take [...] TABLET ORALLY 6-8 HRS NEEDED 30 DAYS 12/14/2021 Active amitriptyline hydrochloride 50 mg oral tablet (19 sources) Tricyclic Antidepressant Start: 03-20-2025 take 1 tablet by mouth at bedtime amitriptyline (Elavil) 50 MG tablet Indications: Bipolar 2 disorder (CMS/HCC) Take 1 tablet (50 mg) by mouth at bedtime 90 tablet 03/20/2025 Active Start: 03-20-2025 take 1 tablet by william th at bedtime amitriptyline (Elavil) 50 MG tablet Indications: Bipolar 2 disorder (CMS/HCC) Take 1 tablet (50 mg) by mouth at bedtime 90 tablet 03/20/2025 Active Start: 12-24-2021 End: 03-20-2025 take 1 tablet by mouth at bedtime amitriptyline (Elavil) 50 MG tablet Indications: Bipolar 2 disorder (CMS/HCC) Take 1 tablet (50 mg) by mouth at bedtime 90 tablet 12/19/2024 03/20/2025 Discontinued (Reorder) cholecalciferol 0.025 mg oral tablet (6 sources) Vitamin D take 1 tablet by mouth once daily cholecalciferol (Vitamin D-3) 25 MCG (1000 UT) tablet Take 1,000 Units by mouth Daily Patient taking 1 tab po daily Active famotidine 20 mg oral tablet (2 sources) Histamine-2 Receptor Antagonist take 1 tablet by mouth in the morning famotidine (Pepcid) 20 MG tablet Take 20 mg by mouth in the morning and 20 mg before bedtime. Active lamoTRIgine 150 mg oral tablet (19 sources) Mood Stabilizer, Anti-epileptic Agent Start: 05-02-20 End: 06-18-20 take 1 tablet by mouth once daily lamoTRIgine (LaMICtal) 150 MG tablet Indications: Bipolar 2 disorder (CMS/HCC) Take 1 tablet (150 mg) by mouth Daily 90 tablet 03/20/2025 06/18/2025 Active Start: 12-24-2021 take 1 tablet by william th once daily lamoTRIgine (LaMICtal) 200 mg tablet TAKE 1 TABLET BY MOUTH EVERY DAY FOR 90 DAYS 12/24/2021 Active latanoprost 0.05 mg/ml ophthalmic solution (13 sources) Prostaglandin Analog Start: 06-19-2022 take 1 drop(s) into the eye(s) at bedtime latanoprost (Xalatan) 0.005 % ophthalmic solution Administer 1 drop into both eyes at bedtime 06/19/2022 Active Start: 12-02-2021 take 1 drop(s) into the eye(s) once daily at bedtime latanoprost (XALATAN) 0.005 % ophthalmic solution PLACE 1 DROP INTO AFFECTED EYE ONCE A DAY AT BEDTIME 12/02/2021 Active levothyroxine sodium 0.05 mg oral tablet (13 sources) l-Thyroxine Start: 12-24-2021 take 1 tablet by mouth in the morning levothyroxine (SYNTHROID, LEVOTHROID) 50 MCG tablet Take 1 tablet (50 mcg total) by mouth in the morning. 12/24/2021 Active metoprolol tartrate 25 mg oral tablet (13 sources) beta-Adrenergic Hu Start: 12-14-2021 take 1 tablet by mouth in the morning, then take 1 tablet by mouth at bedtime metoprolol tartrate (LOPRESSOR) 25 mg tablet Take 1 tablet (25 mg total) by mouth in the morning and 1 tablet (25 mg total) before bedtime. 12/14/2021 Active naproxen 500 mg oral tablet (11 sources) Nonsteroidal Anti-inflammatory Drug Start: 03-15-2023 take 1 tablet by mouth in the morning naproxen (Naprosyn) 500 MG tablet Take 500 mg by mouth in the morning. 03/15/2023 Active omeprazole 40 mg delayed release oral capsule (15 sources) Proton Pump Inhibitor Start: 04-07-2025 take 1 capsule by mouth before mealtime, then take 1 capsule by mouth before mealtime omeprazole (PriLOSEC) 40 mg capsule Indications: Acquired diverticulum of esophagus , Esophageal stricture TAKE 1 CAPSULE BY MOUTH IN THE MORNING BEFORE A MEAL AND 1 IN THE EVENING BEFORE A MEAL 180 capsule 3 04/07/2025 Active Start: 08-23-2023 End: 04-07-2025 take 1 capsule by mouth before mealtime, then take 1 capsule by mouth before mealtime omeprazole (PriLOSEC) 40 mg capsule Indications: Acquired diverticulum of esophagus , Esophageal stricture TAKE 1 CAPSULE BY MOUTH IN THE MORNING BEFORE MEAL(S) AND 1 IN THE EVENING BEFORE MEAL(S) 180 capsule 3 12/18/2023 04/07/2025 Discontinued simvastatin 20 mg oral tablet (13 sources) HMG-CoA Reductase Inhibitor Start: 12-24-2021 take 1 tablet by mouth once daily at bedtime simvastatin (ZOCOR) 20 mg tablet TAKE 1 TABLET BY MOUTH EVERYDAY AT BEDTIME 12/24/2021 Active Problems Active Problems Problem Classification Problem Date Documented Date Episodic/Chronic Anxiety disorders (20 sources) Anxiety disorder, unspecified; Translations: [Anxiety] Onset: 02-17-2022 03-04-2023 Chronic Chronic kidney disease (3 sources) Chronic kidney disease, unspecified; Translations: [Chronic kidney disease] Onset: 02-21-2022 02-21-2022 Chronic Digestive congenital anomalies (1 source) Congenital diverticulum of esophagus; Translations: [CONGENITAL DIVERTICULUM ESOPHAGUS] Onset: 03-11-2022 Chronic Disorders of lipid metabolism (4 sources) Hyperlipidemia, unspecified; Translations: [Pure hypercholesterolemia, unspecified] Onset: 02-21-2022 02-21-2022 Chronic Esophageal disorders (10 sources) Gastro-esophageal reflux disease without esophagitis; Translations: [Esophageal obstruction] Onset: 03-09-2022 Chronic Esophageal disorders (6 sources) Diverticulum of esophagus, acquired; Translations: [Acquired diverticulum of esophagus] Onset: 02-25-2022 Episodic Essential hypertension (7 sources) Essential (primary) hypertension; Translations: [Hypertensive disorder] [...] other mental disorder] 12-19-2024 Chronic Mood disorders (20 sources) Bipolar II disorder; Translations: [Bipolar II disorder] Onset: 05-13-2023 05-13-2023 Chronic Osteoarthritis (1 source) Unspecified osteoarthritis, unspecified [...] CMPL OBS] Onset: 03-02-2022 Episodic Mood disorders (6 sources) Mood disorders Onset: 12-19-2024 12-19-2024 Other aftercare (1 source) Other fdc (current) drug therapy; Translations: [OTH DETENTION CURRENT DRUG THERAPY] Onset: 02-17-2022 Episodic Other [...] TRACT] Onset: 03-11-2022 Episodic Residual codes; unclassified (13 sources) Insomnia; Translations: [Insomnia, unspecified] Onset: 03-13-2024 03-13-2024 Episodic Screening and history of mental health and substance abuse codes (1 source) Personal history of nicotine dependence; Translations: [PERSONAL HISTORY OF NICOTINE DEPEND] Onset: 02-17-2022 Episodic Results Test Name Value Interpretation Reference Range Facility Urine Cultureon 02-12-2025 Bacteria identified Cx Nom (U) <9,000 colonies/ml mixed bacterial skin contaminants 2 Days PERFORMED BY: [place] [address] PATHOLOGIST LEASING MACHINE TENDER JONES Umaña [facility] Comment on above: Performed By: #### C UU #### [address] Urine Cultureon 01-15-2025 Bacteria identified Cx Nom (U) ORGANISM: Escherichia coli (O:ESCCOL) [place] Count >100,000 Aerobic TONJA Charge (NMIC56) ----- SUSCEPTIBILITY ---- ORGANISM: O:ESCCOL ANTIBIOTIC INTERPRETATION TONJA Amikacin S <16 Amoxacillin/K Clavulanate S <8 Ampicillin R >16 Ampicillin/Sulbactam I 1616/8 Aztreonam S <4 Cefazolin S <2 Cefepime S <2 Ceftazidime S <1 Ceftazidime/Avibacta m S <4 Ceftolozane/Tazobact am S <2 Ceftriaxone S <1 Cefuroxime S <4 Ciprofloxacin S <0.25 Ertapenem S <0.5 Gentamicin S <2 Levofloxacin S <0.5 Meropenem S <1 Meropenem/Vaborbacta m S <2 Nitrofurantoin S <32 Piperacillin/Tazobac cain S <8 Tetracycline R >8 Tigecycline S <2 Tobramycin S <2 Trimethoprim/Sulfame thoxazole S <0.5 S = SUSCEPTIBLE I = INTERMEDIATE R = RESISTANT BLANK = DATA NOT AVAILABLE, OR DRUG NOT ADVISABLE OR TESTED R* = RESISTANCE DUE TO EXTENDED SPECTRUM BETA-LACTAMASES ESBL = EXTENDED SPECTRUM BETA-LACTAMASE TFG = THYMIDINE-DEPENDENT STRAIN GOLDEN = BETA-LACTAMASE POSITIVE IB = INDUCIBLE BETA-LACTAMASE. APPEARS IN PLACE OF 'S' WITH SPECIES KNOWN TO POSSESS INDUCIBLE BETA-LACTAMASES. POTENTIALLY THEY MAY BECOME RESISTANT TO ALL B-LACTAM DRUGS. PERFORMED BY: [place] [address] PATHOLOGIST LEASING MACHINE TENDER JONES FINN M.D. Normal [facility] Comment on above: Performed By: #### C UU #### [address] Urine cultureOrdered By: Yasmine Michelle on 01-15-2025 Bacteria identified Cx Nom (U) Escherichia coli Abnormal [facility] INSULINon 07-28-2022 Insulin 9.9 uIU/mL Normal 2.6-24.9 [facility] Comment on above: Performed By: #### C BC #### [facility] [address] [place] [address] Dr. Deandre Ren CBC AUTO DIFFon 07-27-2022 BASO # 0.1 103/ul Normal 0.0-0.1 [facility] Comment on above: Performed By: #### C BC #### [facility] [address] [place] [address] Dr. Deandre Ren Basophils/100 WBC (Bld) 1.0 % Normal 0.2-2.0 [facility] Comment on above: Performed By: #### C BC #### [facility] [address] [place] [address] Dr. Deandre Ren EO # 0.2 103/ul Normal 0.0-0.7 [facility] Comment on above: Performed By: #### C BC #### [facility] [address] [place] [address] Dr. Deandre Ren Eosinophils/100 WBC (Bld) 3.2 % Normal 0.9-7.0 [facility] Comment on above: Performed By: #### C BC #### [facility] [address] [place] [address] Dr. Deandre Ren Erythrocyte distribution width (RBC) [Ratio] 13.0 % Normal 11.0-15.0 [facility] Comment on above: Performed By: #### C BC #### [facility] [address] [place] [address] Dr. Deandre Ren Hematocrit (Bld) [Volume fraction] 40.4 % Normal 36.0-48.0 [facility] Comment on above: Performed By: #### C BC #### [facility] [address] [place] [address] Dr. Deandre Ren Hemoglobin (Bld) [Mass/Vol] 13.0 g/dL Normal 12.0-16.0 [facility] Comment on above: Performed By: #### C BC #### [facility] [address] [place] [address] Dr. Deandre Ren IG # 0.03 10e3/ul Normal 0.00-0.03 [facility] Comment on above: Performed By: #### C BC #### [facility] [address] [place] [address] Dr. Deandre Ren IG % 0.4 % Normal 0.0-0.5 [facility] Comment on above: Performed By: #### C BC #### [facility] [address] [place] [address] Dr. Deandre Ren LYMPH # 1.9 103/ul Normal 1.2-3.8 [facility] Comment on above: Performed By: #### C BC #### [facility] [address] [place] [address] Dr. Deandre Ren Lymphocytes/100 WBC (Bld) 27.1 % Normal 20.5-60.0 [facility] Comment on above: Performed By: #### C BC #### [facility] [address] [place] [address] Dr. Deandre Ren MANUAL DIFF REQ NO Normal [facility] Comment on above: Performed By: #### C BC #### [facility] [address] [place] [address] Dr. Deandre Ren MCH (RBC) [Entitic mass] 28.5 pg Normal 26.7-34.0 [facility] Comment on above: Performed By: #### C BC #### [facility] [address] [place] [address] Dr. Deandre Ren MCHC (RBC) [Mass/Vol] 32.2 g/dL Normal 29.9-35.2 [facility] Comment on above: Performed By: #### C BC #### [facility] [address] [place] [address] Dr. Deandre Ren MCV (RBC) [Entitic vol] 88.6 fL Normal 81.0-99.0 [facility] Comment on above: Performed By: #### C BC #### [facility] [address] [place] [address] Dr. Deandre Ren MONO # 0.6 103/ul Normal 0.3-0.8 [facility] Comment on above: Performed By: #### C BC #### [facility] [address] [place] [address] Dr. Deandre Ren Monocytes/100 WBC (Bld) 9.1 % Normal 1.7-12.0 [facility] Comment on above: Performed By: #### C BC #### [facility] [address] [place] [address] Dr. Deandre Ren NEUT # 4.1 103/ul Normal 1.4-6.5 [facility] Comment on above: Performed By: #### C BC #### [facility] [address] [place] [address] Dr. Deandre Ren Neutrophils/100 WBC (Bld) 59.2 % Normal 43.0-75.0 [facility] Comment on above: Performed By: #### C BC #### [facility] [address] [place] [address] Dr. Deandre Ren Platelet mean volume (Bld) [Entitic vol] 9.8 fL Normal 9.5-13.5 [facility] Comment on above: Performed By: #### C BC #### [facility] [address] [address] [address] Deandre Ren PLT 237 103/ul Normal 150-450 [facility] Comment on above: Performed By: #### C BC #### [facility] [address] [address] [address] Deandre Ren RBC 4.56 106/ul Normal 4.20-5.40 [facility] Comment on above: Performed By: #### C BC #### [facility] [address] [address] [address] Deandre Ren WBC 6.9 103/ul Normal 4.0-11.0 [facility] Comment on above: Performed By: #### C BC #### [facility] [address] [place] [address] Dr. Deandre Ren FREE THYROXINE INDEX T7on FTI 3.43 Normal 1.30-4.50 [facility] Comment on above: Performed By: #### C BC #### [facility] [address] [address] [address] Deandre Ren T3U 34.0 % Normal 30.0-39.0 [facility] Comment on above: Performed By: #### C BC #### [facility] [address] [place] [address] Dr. Deandre Ren T4 [Mass/Vol] 10.10 ug/dL Normal 4.80-13.90 [facility] Comment on above: Performed By: #### C BC #### [facility] [address] [place] [address] Dr. Deandre Ren GLYCOHEMOGLOBIN A1Con 2021 ADA RECOMMENDATION SEE BELOW Normal [facility] Comment on above: Result Comment: ADA RECOMMENDED LIMIT 4.0 - 6.0 ADA THERAPEUTIC TARGET < 7.0 ACTION SUGGESTED > 7.0 Performed By: #### A 1C #### [facility] [address] [place] [address] Dr. Deandre Ren Glucose [Mass/Vol] 114 mg/dL Normal [facility] Comment on above: Performed By: #### A 1C #### [facility] [address] [place] [address] Dr. Deandre Ren HbA1c (Bld) [Mass fraction] 5.6 % Normal 4.5-6.2 [facility] Comment on above: Performed By: #### A 1C #### [facility] [address] [place] [address] Dr. Deandre Ren IRONon 07-27-2022 Iron [Mass/Vol] 106.0 ug/dL Normal 50.0-170.0 [facility] Comment on above: Performed By: #### I BELKIS #### [facility] [address] [place] [address] Dr. Deandre Ren LIPID PROFILEon 07-27-2022 CHOL-HDL RATIO NORM SEE BELOW Normal [facility] Comment on above: Result Comment: 3.3 - 4.4 LOW RISK 4.4 - 7.1 AVERAGE RISK 7.1 - 11.0 MODERATE RISK >11.0 HIGH RISK Performed By: #### C BC #### [facility] [address] [place] [address] Dr. Deandre Ren Cholesterol [Mass/Vol] 218 mg/dL Critically high <=200 [facility] Comment on above: Performed By: #### C BC #### [facility] [address] [place] [address] Dr. Deandre Ren Cholesterol in HDL [Mass/Vol] 74 mg/dL Critically high 40-60 [facility] Comment on above: Performed By: #### C BC #### [facility] [address] [place] [address] Dr. Deandre Ren Cholesterol in LDL [Mass/Vol] 98.0 mg/dL Normal [facility] Comment on above: Performed By: #### C BC #### [facility] [address] [place] [address] Dr. Deandre Ren Cholesterol.total/Cho lesterol in HDL [Mass ratio] 2.9 {ratio} Normal [facility] Comment on above: Performed By: #### C BC #### [facility] [address] [address] [address] Deandre Ren HDL NORMAL > or = 60 mg/dl - LOW CARDIOVASCULAR RISK <40 mg/dl - HIGH CARDIOVASCULAR RISK Normal [facility] Comment on above: Performed By: #### C BC #### [facility] [address] [address] [address] Deandre Ren LDL CALC NORMAL SEE BELOW Normal [facility] Comment on above: Result Comment: <100 mg/dl OPTIMAL 100 - 129 mg/dl NEAR OR ABOVE OPTIMAL 130 - 159 mg/dl BORDERLINE HIGH 160 - 189 mg/dl HIGH >190 mg/dl VERY HIGH Performed By: #### C BC #### [facility] [address] [place] [address] Dr. Deandre Ren Triglyceride [Mass/Vol] 230 mg/dL Critically high <=150 [facility] Comment on above: Performed By: #### C BC #### [facility] [address] [place] [address] Dr. Deandre Ren VLDL CALC 46.0 mg/dL Normal [facility] Comment on above: Performed By: #### C BC #### [facility] [address] [address] [address] Deandre Ren PROF 14(COMP METB)on 022 Albumin [Mass/Vol] 3.6 g/dL Normal 3.4-5.0 [facility] Comment on above: Performed By: #### C BC #### [facility] [address] [place] [address] Dr. Deandre Ren Albumin/Globulin [Mass ratio] 0.8 {ratio} Normal [facility] Comment on above: Performed By: #### C BC #### [facility] [address] [address] [address] Deandre Ren ALP [Catalytic activity/Vol] 116 U/L Normal 46-116 [facility] Comment on above: Performed By: #### C BC #### [facility] [address] [address] [address] Deandre Ren ALT [Catalytic activity/Vol] 30 U/L Normal 14-59 [facility] Comment on above: Performed By: #### C BC #### [facility] [address] [address] [address] Deandre Ren Anion gap [Moles/Vol] 9.6 mmol/L Normal [facility] Comment on above: Performed By: #### C BC #### [facility] [address] [address] [address] Deandre Ren AST [Catalytic activity/Vol] 30 U/L Normal 15-37 [facility] Comment on above: Performed By: #### C BC #### [facility] [address] [address] [address] Deandre Ren Bilirubin [Mass/Vol] 0.4 mg/dL Normal 0.2-1.0 [facility] Comment on above: Performed By: #### C BC #### [facility] [address] [place] [address] Dr. Deandre Ren Calcium [Mass/Vol] 9.3 mg/dL Normal 8.5-10.1 [facility] Comment on above: Performed By: #### C BC #### [facility] [address] [address] [address] Deandre Ren Chloride [Moles/Vol] 102 mmol/L Normal 98-107 [facility] Comment on above: Performed By: #### C BC #### [facility] [address] [address] [address] Deandre Ren CO2 [Moles/Vol] 31.0 mmol/L Normal 21.0-32.0 [facility] Comment on above: Performed By: #### C BC #### [facility] [address] [address] [address] Deandre Ren Creatinine [Mass/Vol] 1.09 mg/dL Critically high 0.55-1.02 [facility] Comment on above: Performed By: #### C BC #### [facility] [address] [address] [address] Deandre Ren EGFR-AF LAO 58 mL/min/1.73m2 Critically low >=60 [facility] Comment on above: Performed By: #### C BC #### [facility] [address] [address] [address] Deandre Rne EGFR-NON AF LAO 48 mL/min/1.73m2 Critically low >=60 [facility] Comment on above: Performed By: #### C BC #### [facility] [address] [address] [address] Deandre Ren Globulin (S) [Mass/Vol] 4.3 g/dL Normal [facility] Comment on above: Performed By: #### C BC #### [facility] [address] [address] [address] Deandre Ren Glucose [Mass/Vol] 95 mg/dL Normal 74-106 [facility] Comment on above: Performed By: #### C BC #### [facility] [address] [address] [address] Deandre Ren Potassium [Moles/Vol] 3.6 mmol/L Normal 3.5-5.1 [facility] Comment on above: Performed By: #### C BC #### [facility] [address] [address] [address] Deandre Ren Protein [Mass/Vol] 7.9 g/dL Normal 6.4-8.2 [facility] Comment on above: Performed By: #### C BC #### [facility] [address] [address] [address] Deandre Ren Sodium [Moles/Vol] 139 mmol/L Normal 136-145 [facility] Comment on above: Performed By: #### C BC #### [facility] [address] [address] [address] Deandre Ren Urea nitrogen [Mass/Vol] 12.0 mg/dL Normal 7.0-18.0 [facility] Comment on above: Performed By: #### C BC #### [facility] [address] [address] [address] Deandre Ren Urea nitrogen/Creatinine [Mass ratio] 11.0 mg/mg Normal [facility] Comment on above: Performed By: #### C BC #### [facility] [address] [place] [address] Dr. Deandre Ren TSHon 07-27-2022 TSH 2.450 uIU/mL Normal 0.358-3.740 [facility] Comment on above: Performed By: #### C BC #### [facility] [address] [place] [address] Dr. Deandre Ren CBC AUTO DIFFon 02-09-2022 BASO # 0.1 103/ul Normal 0.0-0.1 [facility] Comment on above: Performed By: #### C BC #### [facility] [address] [place] [address] Dr. Deandre Ren Basophils/100 WBC (Bld) 0.8 % Normal 0.2-2.0 [facility] Comment on above: Performed By: #### C BC #### [facility] [address] [place] [address] Dr. Deandre Ren EO # 0.2 103/ul Normal 0.0-0.7 [facility] Comment on above: Performed By: #### C BC #### [facility] [address] [place] [address] Dr. Deandre Ren Eosinophils/100 WBC (Bld) 2.1 % Normal 0.9-7.0 [facility] Comment on above: Performed By: #### C BC #### [facility] [address] [place] [address] Dr. Deandre Ren Erythrocyte distribution width (RBC) [Ratio] 12.8 % Normal 11.0-15.0 [facility] Comment on above: Performed By: #### C BC #### [facility] [address] [place] [address] Dr. Deandre Ren Hematocrit (Bld) [Volume fraction] 42.1 % Normal 36.0-48.0 [facility] Comment on above: Performed By: #### C BC #### [facility] [address] [place] [address] Dr. Deandre Ren Hemoglobin (Bld) [Mass/Vol] 13.6 g/dL Normal 12.0-16.0 [facility] Comment on above: Performed By: #### C BC #### [facility] [address] [address] [address] Deandre Ren IG # 0.02 10e3/ul Normal 0.00-0.03 [facility] Comment on above: Performed By: #### C BC #### [facility] [address] [place] [address] Dr. Deandre Ren IG % 0.2 % Normal 0.0-0.5 [facility] Comment on above: Performed By: #### C BC #### [facility] [address] [place] [address] Dr. Deandre Ren LYMPH # 1.7 103/ul Normal 1.2-3.8 [facility] Comment on above: Performed By: #### C BC #### [facility] [address] [place] [address] Dr. Deandre Ren Lymphocytes/100 WBC (Bld) 20.5 % Normal 20.5-60.0 [facility] Comment on above: Performed By: #### C BC #### [facility] [address] [place] [address] Dr. Deandre Ren MANUAL DIFF REQ NO Normal [facility] Comment on above: Performed By: #### C BC #### [facility] [address] [place] [address] Dr. Deandre Ren MCH (RBC) [Entitic mass] 28.5 pg Normal 26.7-34.0 [facility] Comment on above: Performed By: #### C BC #### [facility] [address] [place] [address] Dr. Deandre Ren MCHC (RBC) [Mass/Vol] 32.3 g/dL Normal 29.9-35.2 [facility] Comment on above: Performed By: #### C BC #### [facility] [address] [place] [address] Dr. Deandre Ren MCV (RBC) [Entitic vol] 88.1 fL Normal 81.0-99.0 [facility] Comment on above: Performed By: #### C BC #### [facility] [address] [place] [address] Dr. Deandre Ren MONO # 0.6 103/ul Normal 0.3-0.8 [facility] Comment on above: Performed By: #### C BC #### [facility] [address] [place] [address] Dr. Deandre Ren Monocytes/100 WBC (Bld) 6.6 % Normal 1.7-12.0 [facility] Comment on above: Performed By: #### C BC #### [facility] [address] [place] [address] Dr. Deandre Ren NEUT # 5.9 103/ul Normal 1.4-6.5 [facility] Comment on above: Performed By: #### C BC #### [facility] [address] [place] [address] Dr. Deandre Ren Neutrophils/100 WBC (Bld) 69.8 % Normal 43.0-75.0 [facility] Comment on above: Performed By: #### C BC #### [facility] [address] [place] [address] Dr. Deandre Ren Platelet mean volume (Bld) [Entitic vol] 10.7 fL Normal 9.5-13.5 [facility] Comment on above: Performed By: #### C BC #### [facility] [address] [place] [address] Dr. Deandre Ren PLT 259 103/ul Normal 150-450 [facility] Comment on above: Performed By: #### C BC #### [facility] [address] [place] [address] Dr. Deandre eRn RBC 4.78 106/ul Normal 4.20-5.40 [facility] Comment on above: Performed By: #### C BC #### [facility] [address] [place] [address] Dr. Deandre Ren WBC 8.5 103/ul Normal 4.0-11.0 [facility] Comment on above: Performed By: #### C BC #### [facility] [address] [place] [address] NECK [address] W [...] JENNIE BENAVIDES Date: 2022-02-09 15:50 Normal [facility] Covid-19 PCR (CVDTB)on 01-22 SARS-CoV-2 (COVID-19) RNA ANAIS+probe Ql (Unsp spec) Not detected Normal NOT DETECTED [facility] Comment on above: Result Comment: When diagnostic [...] for this test is supported by the [place] of Health and Human Service's declaration that [...] used). Performed By: #### C VDTB #### [facility] [address] [place] [address] Dr. Deandre Ren PROF CHEM 8 (BAS METB)on Anion gap [Moles/Vol] 16.3 mmol/L Normal [facility] Comment on above: Performed By: #### C BC #### [facility] [address] [place] [address] Dr. Deandre Ren Calcium [Mass/Vol] 9.4 mg/dL Normal 8.5-10.1 [facility] Comment on above: Performed By: #### C BC #### [facility] [address] [place] [address] Dr. Deandre Ren Chloride [Moles/Vol] 99 mmol/L Normal 98-107 [facility] Comment on above: Performed By: #### C BC #### [facility] [address] [place] [address] Dr. Deandre Ren CO2 [Moles/Vol] 23.7 mmol/L Normal 22.0-30.0 [facility] Comment on above: Performed By: #### C BC #### [facility] [address] [place] [address] Dr. Deandre Ren Creatinine [Mass/Vol] 1.10 mg/dL Critically high 0.52-1.04 [facility] Comment on above: Performed By: #### C BC #### [facility] [address] [place] [address] Dr. Deandre Ren EGFR-AF LAO 58 mL/min/1.73m2 Critically low >=60 [facility] Comment on above: Performed By: #### C BC #### [facility] [address] [place] [address] Dr. Deandre Ren EGFR-NON AF LAO 48 mL/min/1.73m2 Critically low >=60 [facility] Comment on above: Performed By: #### C BC #### [facility] [address] [address] [address] Deandre Ren Glucose [Mass/Vol] 87 mg/dL Normal 74-106 [facility] Comment on above: Performed By: #### C BC #### [facility] [address] [address] [address] Deandre Ren Potassium [Moles/Vol] 3.0 mmol/L Critically low 3.4-5.0 [facility] Comment on above: Performed By: #### C BC #### [facility] [address] [address] [address] Deandre Ren Sodium [Moles/Vol] 136 mmol/L Critically low 137-145 [facility] Comment on above: Performed By: #### C BC #### [facility] [address] [address] [address] Deandre Ren Urea nitrogen [Mass/Vol] 17.0 mg/dL Normal 7.0-18.0 [facility] Comment on above: Performed By: #### C BC #### [facility] [address] [address] [address] Deandre Ren Urea nitrogen/Creatinine [Mass ratio] 15.5 mg/mg Normal [facility] Comment on above: Performed By: #### C BC #### [facility] [address] [address] [address] Deandre Ren PROTIMEon 02-09-2022 INR Coag (PPP) [Relative time] 1.03 {INR} Normal [facility] Comment on above: Performed By: #### P T, PTT #### [facility] [address] [address] [address] Deandre Ren INR GUIDELINES SEE BELOW Normal [facility] Comment on above: Result Comment: MARCUS RED INR: 2.0 - 3.0 CONDITIONS NOT LISTED BELOW 2.5 - 3.5 FOR PROSTHETIC HEART VALVE REPLACEMENT 2.5 - 3.5 RECURRENT THROMBOSIS Performed By: #### P T, PTT #### [facility] [address] [address] [address] Deandre Ren PT Coag (PPP) [Time] 11.1 s Normal 9.0-11.6 [facility] Comment on above: Performed By: #### P T, PTT #### [facility] [address] [place], [place] [address] Dr. Deandre Ren PTTon 02-09-2022 aPTT Coag (Bld) [Time] 26.4 s Normal 22.3-36.2 [facility] Comment on above: Performed By: #### P T, PTT #### [facility] [address] [address] [address] Deandre Ren Vital Signs Date Time Vital Sign Value Performing Clinician Faci lity 03-20-2025 11:18-0400 Body mass index (BMI) [Ratio] 21.97 kg/m2 María Kira-Nossek [employer]ASKET ASSEMBLER-H[employer] RESOURCES TRAINEE Work Phone: [facility] 03-20-2025 11:18-0400 Body weight 57.15 kg María Kira-Nossek [employer]ASKET ASSEMBLER-H[employer]AN RESOURCES TRAINEE Work Phone: [facility] 03-20-2025 11:18-0400 Diastolic blood pressure 82 mm[Hg] María Kira-Nossek [employer]ASKET ASSEMBLER-HUMAN RESOURCES TRAINEE Work Phone: [facility] 03-20-2025 11:18-0400 Heart rate 77 /min María Kira-Nossek [employer]ET ASSEMBLER-HUMAN RESOURCES TRAINEE Work Phone: [facility] 03-20-2025 11:18-0400 Systolic blood pressure 138 mm[Hg] María Kira-Nossek [employer]ASKET ASSEMBLER-HUMAN RESOURCES TRAINEE Work Phone: [facility] 12-19-2024 11:30-0500 Body mass index (BMI) [Ratio] 23.54 kg/m2 María Kira-Nossek [employer]ASKET ASSEMBLER-HUMAN RESOURCES TRAINEE Work Phone: [facility] 12-19-2024 11:30-0500 Body weight 61.24 kg María Kira-Nossek [employer]ASKET ASSEMBLER[employer]AN RESOURCES TRAINEE Work Phone: [facility] 12-19-2024 11:30-0500 Diastolic blood pressure 86 mm[Hg] María Kira-Nossek [employer]ET ASSEMBLER-HUMAN RESOURCES TRAINEE Work Phone: [facility] 12-19-2024 11:30-0500 Heart rate 90 /min María Kira-Nossek [employer] ASSEMBLER[employer] RESOURCES TRAINEE Work Phone: [facility] 12-19-2024 11:30-0500 Systolic blood pressure 138 mm[Hg] María Kira-Nossek [employer]ASKET ASSEMBLER-HUMAN RESOURCES TRAINEE Work Phone: [facility] 08-20-2024 10:33-0400 Body mass index (BMI) [Ratio] 23.19 kg/m2 María Kria-Nossek [employer]ASKET ASSEMBLER-HUMAN RESOURCES TRAINEE Work Phone: [facility] 08-20-2024 10:33-0400 Body weight 60.33 kg María Kira-Nossek [employer]ET ASSEMBLER[employer]HUMAN RESOURCES TRAINEE Work Phone: [facility] 08-20-2024 10:33-0400 Diastolic blood pressure 80 mm[Hg] María Kira-Nossek [employer]ASKET ASSEMBLER-HUMAN RESOURCES TRAINEE Work Phone: [facility] 08-20-2024 10:33-0400 Heart rate 99 /min María Kira-Nossek [employer] ASSEMBLER[employer]AN RESOURCES TRAINEE Work Phone: [facility] 08-20-2024 10:33-0400 Systolic blood pressure 118 mm[Hg] María Kira-Nossek CASKET ASSEMBLER-HUMAN RESOURCES TRAINEE Work Phone: [facility] Healthcare Encounters Encounter Date Encounter Type Care Provider Facility Start: 04-01-2025 End: 04-07-2025 Kelton Grijalva MD Work Phone: [facility] Comment on above: Acquired diverticulu m of esophagus; Esophageal stricture Start: 03-20-2025 End: 03-20-2025 Bamboo flowsheet María Abby Kira-Nossek [employer]ASKET ASSEMBLER-HUMAN RESOURCES TRAINEE Work Phone: [facility] Start: 03-20-2025 End: 03-20-2025 Bamboo flowsheet María Mora Kira-Nossek CASKET ASSEMBLER-HUMAN RESOURCES TRAINEE Work Phone: [facility] Start: 03-20-2025 End: 03-20-2025 Office outpatient visit 40 minutes María Mora Kira-Nossek [employer] ASSEMBLER-HUMAN RESOURCES TRAINEE Work Phone: [facility] Comment on above: Bipolar 2 disorder ( CMS/HCC); Anxiety Start: 03-20-2025 End: 03-20-2025 ambulatory MARÍA Mora KIRA-NOSSEK Not Available Start: 02-12-2025 End: 02-12-2025 ambulatory Bridgett Michelle [facility] Work Phone: Start: 02-12-2025 End: 02-12-2025 Departed Referred Bridgett Michelle DAY CARE AIDE-C Work Phone: [facility] Start: 02-10-2025 End: 02-10-2025 Refill Inez Dumont HYDRAULIC BULL RIVETER OPERATOR [facility] Comment on above: Anxiety Start: 01-15-2025 End: 01-15-2025 ambulatory Bridgett Michelle [facility] Work Phone: Start: 01-15-2025 End: 01-15-2025 Departed Referred Bridgett Michelle DAY CARE AIDE-C Work Phone: [facility] Start: 12-19-2024 End: 12-19-2024 Bamboo flowsheet María Mora Kira-Nossek CASKET ASSEMBLER-HUMAN RESOURCES TRAINEE Work Phone: [facility] Start: 12-19-2024 End: 12-19-2024 Bamboo flowsheet María Mora Kira-Nossek CASKET ASSEMBLER-HUMAN RESOURCES TRAINEE Work Phone: [facility] Start: 12-19-2024 End: 12-19-2024 Office outpatient visit 40 minutes María Mora Kira-Nossek [employer]ET ASSEMBLER-H[employer]AN RESOURCES TRAINEE Work Phone: [facility] Comment on above: Anxiety; Bipolar 2 disorder (CMS/HCC); Insomnia, unspecified type; Insomnia due to other mental disorder Start: 12-19-2024 End: 12-19-2024 ambulatory MARÍA Mora KIRA-NOSSEK Not Available Start: 10-12-2024 End: 10-14-2024 Refill María Mora Kira-Nossek [employer]ET ASSEMBLER[employer] RESOURCES TRAINEE Work Phone: [facility] Comment on above: Anxiety Start: 08-20-2024 End: 08-20-2024 Bamboo flowsheet María Mora Kira-Nossek [employer]ET ASSEMBLER-HUMAN RESOURCES TRAINEE Work Phone: [facility] Start: 08-20-2024 End: 08-20-2024 Bamboo flowsheet María Mora Kira-Nossek [employer]ET ASSEMBLER[employer]HUMAN RESOURCES TRAINEE Work Phone: [facility] Start: 08-20-2024 End: 08-20-2024 ambulatory MARÍA Mora KIRA-NOSSEK Not Available Start: 08-20-2024 End: 08-20-2024 Office outpatient visit 25 minutes María Mora Kira-Nossek [employer] ASSEMBLER-H[employer]AN RESOURCES TRAINEE Work Phone: [facility] Comment on above: Anxiety; Bipolar 2 disorder (CMS/HCC) Start: 05-02-2024 End: 05-02-2024 ambulatory MARÍA Mora KIRA-NOSSEK Not Available Start: 12-15-2023 Refill Juan erickson MD Work Phone: [facility] Comment on above: Acquired diverticulu m of esophagus; Esophageal stricture Start: 07-27-2022 End: 01-25-2023 ambulatory BRIDGETT MICHELLE Facility:[facility] Start: 04-07-2022 ambulatory JEAN-CLAUDE Patel y:[facility] Start: 03-09-2022 End: 03-09-[address] BRAD PARADA . Facility:[facility] Start: 03-05-[address] BRAD PARADA . Facility:[facility] Start: 03-03-[address] BRAD PARADA . Facility:[facility] Start: 02-25-2022 End: 02-26-[address] BRAD PARADA . Facility: Start: 02-09-2022 End: 02-09-[address] BRAD PARADA . Facility: Procedures Date Procedure Procedure Detail Performing Clinician Start: 01-15-2025 Urine culture Bridgett lemus DAY CARE AIDE-C Work Phone: Plan of Treatment Date Care Activity Detail Author Start: 06-26-2025 End: 06-26-2025 Patient encounter procedure 06/26/2025 1:00 PM EDT Office Visit [facility] [address] [facility] [address] [place] [address] María Austin, CASKET ASSEMBLER-HUMAN RESOURCES TRAINEE [address] [facility] [address] [place] [address] [facility] Start: 06-23-2025 Influenza vaccination Influenza Vacc [facility] Start: 03-20-2025 End: 03-20-2025 Patient encounter procedure [facility] Comment on above: Arrived Start: 02-12-2025 Bacteria identified in Urine by Culture Urine Culture [facility] Start: 02-12-2025 Urine culture [facility] Start: 01-15-2025 Bacteria identified in Urine by Culture Urine Culture [facility] Start: 01-15-2025 Urine culture [facility] Start: 12-19-2024 End: 12-19-2024 Patient encounter procedure 12/19/2024 11:30 AM EST Office Visit [facility] [address] [facility] [address] [place] [address] María Austin, CASKET ASSEMBLER-HUMAN RESOURCES TRAINEE [address] [facility] [address] [place] [address] Arrived [facility] Comment on above: Arrived Start: 11-20-2024 End: 11-20-2024 Patient encounter procedure 11/20/2024 11:30 AM EST Office Visit [facility] [address] [facility] [address] [place] [address] María Austin, CASKET ASSEMBLER-HUMAN RESOURCES TRAINEE [address] [facility] [address] [place] [address] [facility] Start: 06-23-2024 COVID-19 Vaccine ( season) COVID-19 Vaccine ( season) [facility] Start: 06-23-2024 Influenza vaccination Influenza Vacc ine (#1) [facility] Start: 11-01-2023 Adult BMI Screening Adult BMI Screen ing [facility] Start: 11-01-2023 Tobacco Screening Tobacco Screening [facility] Start: 06-23-2023 COVID-19 Vaccine ( season) COVID-19 Vaccine ( season) [facility] Start: 06-23-2023 Influenza vaccination Influenza Vacc ine [facility] Start: 2005 Fall Risk Screening Fall Risk Screen ing [facility] Start: 1990 Administration of varicella zoster vaccine Zoster (Shingles) Vaccine (1 of 2) [facility] Start: 1959 DTaP,Tdap and Td Vac cines (1 - Tdap) DTaP,Tdap and Td Vaccines (1 - Tdap) [facility] Start: 1952 Depression Screening Depression Scre ening [facility] Start: 1952 Tobacco Screening Tobacco Screening [facility] Start: 1940 Medicare Annual Well ness Visit Medicare Annual Wellness Visit [facility] Immunizations Immunization Date Immunization Notes Care Provider Fa cili 10-21-2023 influenza virus vaccine, unspecified formulation María Austin CASKET ASSEMBLER-H[employer]OURCES TRAINEE Work Phone: [facility] 07-01-2022 influenza virus vaccine, unspecified formulation Juan Grijalva MD Work Phone: [facility] Payers Date Payer Category Payer Managed Care Other (unspecified) [facility] [id number] 2021 Private Health Insurance [id number] 2005 Medicare [id number] 1959 Medicare [id number] 1959 Self-pay 1959 Unknown [id number] 1940 Unknown [id number] 1940 Unknown [id number] 1940 Unknown [id number] 1940 Unknown [id number] 1940 Unknown [id number] 1940 Unknown [id number] 1940 Unknown [id number] 1940 Unknown [id number] .1259 1940 Unknown [id number] .1259 1940 Unknown [id number] .1259 1940 Unknown [id number] Private Health Insurance [facility] [id number] Unknown [id number] Unknown [id number] Social History Date Type Detail Facility Start: 02-21-2022 End: 03-04-2023 Tobacco smoking status NHIS Never smoked tobacco [facility] Start: 02-21-2022 End: 03-04-2023 Tobacco use and exposure Smokeless tobacco non-user [facility] Start: 05-02-2024 End: 03-20-2025 Alcoholic beverage intake Ex-drinker (finding) [facility] Start: 11-01-2022 End: 05-02-2024 History of Social function [facility] Start: 11-01-2022 End: 05-02-2024 Tobacco use panel [facility] Start: 04-11-2023 Alcohol Comment occassional tea [facility] Start: 1940 Sex assigned at Not on file P [facility] Start: 08-20-2024 Education 13 [facility] Start: 08-20-2024 Alcohol Comment Caffine: occassional tea [facility] Start: 11-01-2022 Alcohol intake Current drinke r of alcohol (finding) [facility] Childcare Unknown [facility] Start: 02-21-2022 Alcohol Comment socially [facility] Start: 03-30-2022 Gender identity Identifies as female gender (finding) [facility] Tobacco smoking stat us OHIS Unknown if ever smoked [facility] Work Phone: Start: 05-28-2015 End: 01-16-2025 Sex Female (finding) [facility] Start: 1940 Sex Assigned At Female F [facility] Clinical Notes 02-25-2022 to 02-10-2025 Telephone Encounter - Inez Dumont LPN - 02/10/2025 1:35 PM EDTTelephone Encounter - Inez Dumont LPN - 02/10/2025 1:35 PM EDTFpatel Abby KiraCaprimargarita, CASKET ASSEMBLER-HUMAN RESOURCES TRAINEE - 12/19/2024 11:30 AM EST Note Date & Type Note Facility 02-10-2025 Telephone encount er Note Patient called would like a refill of Xanax to [facility] has follow up 03/20 [facility] 02-10-2025 Miscellaneous Notes Formattin g of this note might be different from the original. Patient called would like a refill of Xanax to [facility] has follow up 03/20 documented in this encounter [facility] 12-19-2024 History of Presen t illness Narrative [...] as PCP - General (Family Medicine) María Austin APRN-HUMAN RESOURCES TRAINEE as Nurse Practitioner (Behavioral Health) PSYCHIATRIC REVIEW [...] a day prn severe anxiety-patient aware of terminal operations manager use benzodiazepines. Amitriptyline HCl Tablet, 50 MG, [...] as described above. documented in this encounter [facility] 10-14-2024 Telephone encount er Note Attempted to reach patient, no answer does have follow up. [facility] 10-14-2024 Miscellaneous Notes Formattin g of this note might be different from the original. Attempted to reach patient, no answer does have follow up. documented in this encounter [facility] 08-20-2024 History of Presen t illness Narrative [...] and Time Memory/Concentration Short term intact and fdc intact Insight/Judgement Good OBJECTIVE: Visit Vitals Smoking [...] time : 30min documented in this encounter [facility] 02-25-2022 Note PROCEDURE: Esophagra m, XR GI UPPER AIR KUB DUAL CONTRAST, XR CINERADIOGRAPHY COMPARISON: None. HISTORY: Acquired diverticulum of esophagus , food stuck in mid throat TECHNIQUE: An air contrast upper gastrointestinal series was performed in the usual manner. Standard level fluoroscopic mode of operation utilized. FINDINGS: Shipping Helper image demonstrates a large amount of stool [...] authenticated by: ZI BEAULIEU Date: 2022-02-25 12:00 [facility] 02-25-2022 Note PROCEDURE: Esophagra m, XR GI UPPER AIR KUB DUAL CONTRAST, XR CINERADIOGRAPHY COMPARISON: None. HISTORY: Acquired diverticulum of esophagus , food stuck in mid throat TECHNIQUE: An air contrast upper gastrointestinal series was performed in the usual manner. Standard level fluoroscopic mode of operation utilized. FINDINGS: Shipping Helper image demonstrates a large amount of stool [...] authenticated by: ZI BEAULIEU Date: 2022-02-25 12:00 [facility] Evaluation note Diagnosis Anxiety Anxiety state, unspecified Bipolar 2 disorder ([facility]) Other bipolar disorders documented in this encounter [facility] Diagnosis Anxiety Anxiety state, unspecified documented in this encounter [facility] Healthcare[facility] note* Diagnosis Acquired diverticulum of esophagus Diverticulum of esophagus, acquired Esophageal stricture Stricture and stenosis of esophagus documented in this encounter [facility]* Diagnosis Anxiety Anxiety state, unspecified Bipolar 2 disorder (CMS/HCC) Other bipolar disorders Insomnia, unspecified type Insomnia due to other mental disorder documented in this encounter [facility] noteNo assessment information availableOhiohealth [facility] Work Phone: Evaluation note* Diagnosis Anxiety Anxiety state, unspecified documented in this encounter [facility]* Diagnosis Bipolar 2 disorder (CMS/HCC) Other bipolar disorders Anxiety Anxiety state, unspecified documented in this encounter [facility]* Diagnosis Acquired diverticulum of esophagus Diverticulum of esophagus, acquired Esophageal stricture Stricture and stenosis of esophagus documented in this encounter [facility] SystemInstructionsNot on filedocumented in this encounter [facility] Summary Purpose Family History No Family History Records FoundNo Family History Records FoundNo Family History Records Found Advance Directives No Advanced Directives Records FoundNo Advanced Directives Records FoundNo Advanced Directives Records Found Additional Source Comments INFORMATION SOURCE (unrecogn ized section and content) DATE CREATED AUTHOR 01/27/2023 [facility] DATE CREATED AUTHOR AUTHOR'S ORGANIZ ATION 02/16/2025 [facility] DATE CREATED AUTHOR AUTHOR'S ORGANIZ ATION 03/22/2025 [facility] EP[employer] Care Teams (unrecognized sec tion and content) Bone Drier Operator Relationship Specialty Start Date End Date Gene Michelle MD [address] [place] [address] PCP - General Family Medicine 03/31/23 María Austin APRN-HUMAN RESOURCES TRAINEE [address] [facility] [address] [place] [address] Nurse Practitioner Behavioral Health 03/31/23 Bone Drier Operator Relationship Specialty Start Date End Date Gene Michelle MD [address] [place] [address] PCP - General Family Medicine 03/31/23 María Austin APRN-HUMAN RESOURCES TRAINEE [address] [facility] [address] [place] [address] Nurse Practitioner Behavioral Health 03/31/23 Bone Drier Operator Relationship Specialty Start Date End Date Gene Michelle MD [address] [place] [address] PCP - General Family Medicine 03/31/23 María Austin, [facility]ET ASSEMBLERSH[facility] [address] [facility] [address] [place] [address] Nurse Practitioner Behavioral Health 03/31/23 Bone Drier Operator Relationship Specialty Start Date End Date Bridgett Michelle, CASKET ASSEMBLERED[facility] [address] [place] [id number] PCP - General Family Medicine 02/21/22 Bone Drier Operator Relationship Specialty Start Date End Date Gene Michelle MD [address] [place] [address] PCP - General Family Medicine 03/31/23 María Austin, [facility] [address] [facility] [address] [place] [address] Nurse Practitioner Behavioral Health 03/31/23 Bone Drier Operator Relationship Specialty Start Date End Date Gene Michelle MD [address] [place] [address] PCP - General Family Medicine 03/31/23 María Austin [facility] [address] [facility] [address] [place] [address] Nurse Practitioner Behavioral Health 03/31/23 Team Status: Inactive Member Role Status Dates SYDNEY PhoenixC Attending Provider Active Start: January 15, 2025 End: January 15, 2025 Bone Drier Operator Relationship Specialty Start Date End Date Gene Michelle MD [address] [place] [address] PCP - General Family Medicine 03/31/23 María Austin CASKET ASSEMBLER-HUMAN RESOURCES TRAINEE [address] [address] Nurse Practitioner Behavioral Health 03/31/23 Team Status: Inactive Member Role Status Dates FARHAT Phoenix Attending Provider Active Start: February 12, 2025 End: February 12, 2025 Bone Drier Operator Relationship Specialty Start Date End Date Gene Michelle MD [address] [place] [address] PCP - General Family Medicine 03/31/23 María Austin CASKET ASSEMBLER-HUMAN RESOURCES TRAINEE [address] [address] Nurse Practitioner Behavioral Health 03/31/23 Bone Drier Operator Relationship Specialty Start Date End Date Gene Michelle MD [address] [place] [address] PCP - General Family Medicine 03/31/23 María Austin CASKET ASSEMBLER-HUMAN RESOURCES TRAINEE [address] [facility] [address] [place] [address] Nurse Practitioner Behavioral Health 03/31/23 Bone Drier Operator Relationship Specialty Start Date End Date Bridgett Michelle, CASKET ASSEMBLER-COIL TAPER [address] [place] [address] PCP - General Family Medicine 02/21/22 Reason for Visit (unrecogniz ed section and content) Reason Comments Med Management Follow-up Reason Comments Med Refill Goals (unrecognized section and content) Goals may be documented in a n alternate section FOR RECORDS PERTAINING TO PATIENTS WHO ARE [...] BE BASED ON THE PRIMARY CLINICAL RECORDS. [employer] provides no warranty or guarantee of the accuracy or completeness of information in this document.
== END 2025-06-06 10:19 | disposition home or self-care (01) ==
LOC: RAD 10:21
PROVIDERS: PCP Nurse Practitioner Family; Visit Provider Nurse Practitioner Family
DX: M85.88 Other specified disorders of bone density and structure, other site (principal); M85.80 Other specified disorders of bone density and structure, unspecified site
CPT/HCPCS: 77080